=== PATIENT | male | born 1930 | race Caucasian/White ===

== ENCOUNTER 2016-05-08 07:44 | Inpatient (IN) | payer MEDICARE, BC ==
[2016-05-08] MEDS ORDERED: RX INFO: IV CONTRAST WAS GIVEN 1 EACH MISC MISCELLANE PRN (08:10)
--- NOTE | 2016-05-08 08:16 | ED ---
Back Pain HPI - General Chief Complaint: Back Pain/Injury Stated Complaint: Fall Time Seen by Provider: 05/08/16 08:00 Source: patient, EMS, RN notes reviewed Limitations: physical limitation - History of Present Illness Initial Comments: This patient is an 85-year-old man who currently resides at the [facility]. He is brought in by EMS to be evaluated as the result of a fall. Patient states that he had attempted use the bathroom at about 2 AM on the night of going into Tuesday morning. He believes that he tripped and he fell landing on his right thoracic back. The patient states that he did have some initial pain but he was able to rest. When the pain worsened this morning and he has pain with attempted movement she states that the staff there decided to check his back and found significant bruising. They then decided to have him seen here and phone EMS. The patient did receive dose of morphine and states that this has made the pain tolerable. He was rating it moderate to severe before the medication, and states that it is down to mild mouth he does not move. He does have severe pain when he attempts to move. MD Complaint: back pain, back injury, fall Onset/Timin -: hour(s) Similar Symptoms Previously: No Place: home Radiation: flank Severity: moderate Quality: aching Consistency: constant Improves With: none Worsens With: movement, deep breaths/cough Context: fall Associated Symptoms: denies other symptoms Treatments Prior to Arrival: other medications - Related Data Home Medications Medication Instructions Recorded Confirmed Ascorbic Acid [Vitamin C] 500 mg PO DAILY 12/04/15 05/08/16 Aspirin EC [Ecotrin Low Dose] 81 mg PO DAILY@1700 12/04/15 05/08/16 Carbidopa-Levodopa 25-100 mg 1 tab PO TID 12/04/15 05/08/16 [Sinemet 25-100 mg] Finasteride [Proscar] 5 mg PO DAILY 12/04/15 05/08/16 Levothyroxine Sodium [Synthroid] 75 mcg PO MOTUWETHFRSA 12/04/15 05/08/16 Metoprolol Tartrate [Lopressor] 50 mg PO BID 12/04/15 05/08/16 Nitroglycerin Sl Tabs [Nitrostat] 0.4 mg SUBLINGUAL Q5M PRN 12/04/15 05/08/16 Pravastatin Sodium [Pravachol] 40 mg PO HS 12/04/15 05/08/16 Vit D3/Folic Acid/B2/B6/B12 1 tab PO DAILY 12/04/15 05/08/16 [Folgard Tablet] Bisacodyl [Dulcolax] 10 mg PO DAILY PRN 05/08/16 05/08/16 HYDROcodone/APAP 7.5-325MG [[place] 1 tab PO Q4H PRN 05/08/16 05/08/16 7.5-325] Levothyroxine Sodium [Synthroid] 150 mcg PO MENDOSA 05/08/16 05/08/16 Sertraline [Zoloft] 100 mg PO HS 05/08/16 05/08/16 Previous Rx's Medication Instructions Recorded Pantoprazole [Protonix] 40 mg PO AC-BID tablet. 12/10/15 Allergies Allergy/AdvReac Type Severity Reaction Status Date / Time No Known Allergies Allergy Verified 05/08/16 12:16 Review of Systems ROS Statement: Those systems with pertinent positive or pertinent negative responses have been documented in the HPI. ROS Other: All systems not noted in ROS Statement are negative. Constitutional: Denies: fever, chills, weakness Respiratory: Denies: cough, dyspnea, hemoptysis Cardiovascular: Reports: as per HPI, chest pain. Denies: palpitations, edema, syncope Gastrointestinal: Denies: abdominal pain, vomiting, diarrhea Genitourinary: Denies: dysuria, hematuria Musculoskeletal: Reports: as per HPI, back pain Skin: Denies: rash Neurological: Denies: headache, weakness, numbness Hematological/Lymphatic: Denies: easy bleeding Past Medical History Past Medical History: Cancer, Hyperlipidemia, Hypertension, Neurologic Disorder , Thyroid Disorder Additional Past Medical History / Comment(s): Diverticulitis, Prostate CA History of Any Multi-Drug Resistant Organisms: None Reported Past Surgical History: Appendectomy, Tonsillectomy Additional Past Surgical History / Comment(s): radiation seeds 2009, spot of skin cancer removed from head 10/2015 Past Anesthesia/Blood Transfusion Reactions: No Reported Reaction Past Psychological History: Anxiety, Depression Additional Psychological History / Comment(s): but his has severe dementia and is going into hospice today. Was living independently but will be going to extended care. No history of smoking. 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 He was stationed in [place]. He was in the [employer]. No animal exposures Smoking Status: Never smoker Past Alcohol Use History: None Reported Past Drug Use History: None Reported - Past Family History Father Family Medical History: GI Bleed Mother Family Medical History: Cancer Additional Family Medical History / Comment(s): unknown General Exam Limitations: physical limitation General appearance: alert, in no apparent distress Head exam: Present: atraumatic, normocephalic Eye exam: Present: normal appearance. Absent: scleral icterus, conjunctival injection Neck exam: Present: normal inspection, full ROM. Absent: tenderness Respiratory exam: Present: normal lung sounds bilaterally, chest wall tenderness , other (There is ecchymosis over the right posterior ribs and tenderness.). Absent: respiratory distress, wheezes, rales, rhonchi, stridor Cardiovascular Exam: Present: regular rate, normal rhythm, normal heart sounds. Absent: systolic murmur, diastolic murmur, rubs, gallop GI/Abdominal exam: Present: soft, tenderness, guarding. Absent: distended, rebound, mass, pulsatile mass, hernia Extremities exam: Present: normal inspection, normal capillary refill. Absent: pedal edema, calf tenderness Back exam: Present: CVA tenderness (R). Absent: normal inspection, CVA tenderness (L) Neurological exam: Present: alert, oriented X3. Absent: motor sensory deficit Skin exam: Present: warm, dry, intact, normal color, other (Ecchymosis as above) Course Vital Signs 05/08/16 05/08/16 05/08/16 07:47 08:36 09:49 Temperature 96.9 F L Pulse Rate 73 78 Respiratory 15 Rate Blood Pressure 132/79 116/57 155/67 O2 Sat by Pulse 91 L 94 L Oximetry 05/08/16 05/08/16 05/08/16 13:35 14:16 14:58 Temperature Pulse Rate 82 52 L 55 L Respiratory 16 16 Rate Blood Pressure 138/60 138/68 O2 Sat by Pulse 94 L 92 L 92 L Oximetry 05/08/16 15:40 Temperature 97.4 F L Pulse Rate 51 L Respiratory 16 Rate Blood Pressure 116/71 O2 Sat by Pulse 96 Oximetry Medical Decision Making - Medical Decision Making Patient's an 85-year-old man who presents following a fall and has multiple rib fractures. Not finding any other acute injuries. In attempting to manage the patient's pain such that he was able to ambulate, he did require multiple rounds of pain medication and then appeared much to the sedated to safely stand and ambulate. Patient's case discussed with Dr. Migdalia Pimentel who is the surgeon on-call, and will admit the patient overnight. Patient's primary physician is also consulted for medical management. - Lab Data Result diagrams: 05/08/16 08:20 05/08/16 08:20 Lab Results 05/08/16 05/08/16 05/08/16 Range/Units 08:20 08:20 14:00 WBC 6.9 (3.8-10.6) k/uL RBC 3.55 L (4.30-5.90) m/uL Hgb 11.8 L (13.0-17.5) gm/dL Hct 34.6 L (39.0-53.0) % MCV 97.6 (80.0-100.0) fL MCH 33.4 (25.0-35.0) pg MCHC 34.2 (31.0-37.0) g/dL RDW 13.6 (11.5-15.5) % Plt Count 117 L (150-450) k/uL Neutrophils % 76 % Lymphocytes % 11 % Monocytes % 9 % Eosinophils % 2 % Basophils % 0 % Neutrophils # 5.2 (1.3-7.7) k/uL Lymphocytes # 0.7 L (1.0-4.8) k/uL Monocytes # 0.6 (0-1.0) k/uL Eosinophils # 0.2 (0-0.7) k/uL Basophils # 0.0 (0-0.2) k/uL Sodium 140 (137-145) mmol/L Potassium 4.2 (3.5-5.1) mmol/L Chloride 104 (98-107) mmol/L Carbon Dioxide 25 (22-30) mmol/L Anion Gap 11 mmol/L BUN 29 H (9-20) mg/dL Creatinine 1.20 (0.66-1.25) mg/dL Est GFR (MDRD) Af Amer >60 (>60 ml/min/1.73 sqM) Est GFR (MDRD) Non-Af 57 (>60 ml/min/1.73 sqM) Glucose 115 H (74-99) mg/dL Calcium 8.4 (8.4-10.2) mg/dL Total Bilirubin 0.7 (0.2-1.3) mg/dL AST 22 (17-59) U/L ALT 21 (21-72) U/L Alkaline Phosphatase 67 (38-126) U/L Total Protein 6.4 (6.3-8.2) g/dL Albumin 3.6 (3.5-5.0) g/dL Urine Color Yellow Urine Appearance Clear (Clear) Urine pH 5.5 (5.0-8.0) Ur Specific [place] 1.042 H (1.001-1.035) Urine Protein Trace H (Negative) Urine Glucose (UA) Negative (Negative) Urine Ketones Negative (Negative) Urine Blood Negative (Negative) Urine Nitrate Negative (Negative) Urine Bilirubin Negative (Negative) Urine Urobilinogen <2.0 (<2.0) mg/dL Ur Leukocyte Esterase Moderate H (Negative) Urine RBC 2 (0-5) /hpf Urine WBC 6 H (0-5) /hpf Ur Squamous Epith Cells <1 (0-4) /hpf Urine Bacteria Rare H (None) /hpf Hyaline Casts 4 H (0-2) /lpf Urine Mucus Rare H (None) /hpf Disposition Clinical Impression: Multiple fractures of ribs of right side, Intractable pain Disposition: ADMITTED IP TO THIS [facility] Condition: Fair
[2016-05-08 08:33] LABS: Basophils % (A) 0 %; CH 34.1; CHCM 35.2; Eosinophils # (A) 0.2 k/uL (0-0.7); Eosinophils % (A) 2 %; HCT 34.6 % (39.0-53.0); HDW 2.76; HGB 11.8 gm/dL (13.0-17.5); Luc # (Auto) 0.12; Luc % (Auto) 2; Lymphocytes # (A) 0.7 k/uL (1.0-4.8); Lymphocytes % (A) 11 %; MCH 33.4 pg (25.0-35.0); MCHC 34.2 g/dL (31.0-37.0); MCV 97.6 fL (80.0-100.0); Monocytes # (A) 0.6 k/uL (0-1.0); Monocytes % (A) 9 %; Neutrophils # (A) 5.2 k/uL (1.3-7.7); Neutrophils % (A) 76 %; RBC 3.55 m/uL (4.30-5.90); RDW 13.6 % (11.5-15.5); WBC 6.9 k/uL (3.8-10.6); WBC (Perox) 7.03
[2016-05-08 08:46] LABS: ALT 21 U/L (21-72); AST 22 U/L (17-59); Alkaline Phosphatase 67 U/L (38-126); Anion Gap 11 mmol/L; Blood Urea Nitrogen 29 mg/dL (9-20); Calcium 8.4 mg/dL (8.4-10.2); Carbon Dioxide 25 mmol/L (22-30); Chloride 104 mmol/L (98-107); Glucose 115 mg/dL (74-99); Non-African American GFR(MDRD) 57 (>60 ml/min/1.73 sqM); Potassium 4.2 mmol/L (3.5-5.1); Sodium 140 mmol/L (137-145); Total Bilirubin 0.7 mg/dL (0.2-1.3); Total Protein 6.4 g/dL (6.3-8.2)
--- NOTE | 2016-05-08 09:22 | XR ---
EXAMINATION TYPE: XR ribs RT w pa chest xray DATE OF EXAM: 05/08/2016 9:07 AM COMPARISON: 12/09/2015 HISTORY: Pain post fall FINDINGS: Subsegmental changes along lateral margin of the right. Heart is enlarged. No pleural effus ion. No pneumothorax. Diffuse osteopenia. Scoliosis and degenerative changes spine noted. No acute displaced rib fracture. IMPRESSION: 1. No evidence of pneumothorax or acute displaced rib fracture. 2. Vague area of infiltrate or nodularity within the right midlung. Correlate clinically. Short-term follow-up x-ray could be obtained for resolution.
--- NOTE | 2016-05-08 10:44 | CT ---
EXAMINATION TYPE: CT abdomen pelvis w con DATE OF EXAM: 05/08/2016 10:29 AM COMPARISON: 02/14/2016 HISTORY: Fall, Right flank pain. CT DLP: 1019.80 mGycm Automated exposure control for dose reduction was used. CONTRAST: CT scan of the abdomen pelvis is performed with IV Contrast, patient injected with 80 ml mL of Visipa que 320. FINDINGS- LUNG BASES-the heart is enlarged. There is pleural-based thickening and nodularity. Subsegmental cons olidation seen suspected single area of pleural calcification. Correlate for is best is related disea se. LIVER/GB-there is calcification along the wall the gallbladder which could represent a small stone or calcification within the gallbladder wall. Numerous tiny hypodensities within the liver too small to characterize but stable from the previous exam. PANCREAS- No gross abnormality is seen. SPLEEN- No gross abnormality is seen. ADRENALS- No gross abnormality is seen. KIDNEYS/BLADDER- no hydronephrosis or nephrolithiasis. There is a 5 mm lower pole hypodense lesions i nvolving the right kidney too small to characterize.. BOWEL- no bowel dilatation. Normal appendix. Changes of chronic diverticulosis noted. LYMPH NODES- No greater than 1cm abdominal or pelvic lymph nodes are appreciated. OSSEOUS STRUCTURES-severe multilevel degenerative disc disease. Multilevel canal stenosis and foramin al encroachment suspected. Scoliotic curvature and large hypertrophic spurs. No compression deformiti es. There is a slightly displaced fracture involving the anterior lateral margin of the right, ninth, 10th, 11th and 12th rib no pneumothorax. OTHER- atherosclerotic change aorta. Is a chronic cystitis noted with bladder wall thickening. Previ ous surgery involving the prostate noted. IMPRESSION- 1. Slightly displaced fractures anterior lateral margin of the right ninth, 10th, 11th and 12th ribs. 2. There is pleural-based thickening and nodularity with areas of calcification likely the basis of p leural plaques. This would increase the patient's risk for malignancy including primary lung carcinom a and mesothelioma. 3. Bladder wall thickening correlate for chronic cystitis.
[2016-05-08] MEDS ORDERED: HYDROcodone/APAP 7.5-325MG 1 EACH TAB PO ONE (12:23)
[2016-05-08 14:29] LABS: Appearance,Urine Clear (Clear); Bacteria,Urine Rare /hpf; Bilirubin,Urine Negative (Negative); Glucose,Urine (UA) Negative (Negative); Ketones,Urine Negative (Negative); Leukocyte Esterase,Urine Moderate (Negative); Mucus,Urine Rare /hpf; Nitrite,Urine Negative (Negative); PH, Urine 5.5 (5.0-8.0); Particle Count 1167; Protein,Urine Trace (Negative); RBC,Urine 2 /hpf (0-5); Specific Gravity,Urine 1.042 (1.001-1.035); Squamous Epithelial Cell,Urine <1 /hpf (0-4); UA Billing (MACRO vs. MICRO) MICRO; Urobilinogen,Urine <2.0 mg/dL (<2.0); WBC,Urine 6 /hpf (0-5)
[2016-05-08] MEDS ORDERED: HYDROmorphone 1 MG/ML 1 ML SYRINGE IVP STA (14:34)
[2016-05-08] MEDS ORDERED: SODIUM CHLORIDE 0.9% 1,000 ML IV ONE (15:33)
[2016-05-08] MEDS ORDERED: HYDROcodone/APAP 7.5-325MG 1 EACH TAB PO PRN (15:36)
[2016-05-08] MEDS ORDERED: NITROGLYCERIN SL TABS 0.4 MG TAB SUBLINGUAL PRN (15:36)
[2016-05-08] MEDS ORDERED: BISACODYL 5 MG TABLET.DR PO PRN (15:36)
[2016-05-08] MEDS ORDERED: Acetaminophen-Codeine 300-30mg TAB PO PRN (16:30)
--- NOTE | 2016-05-08 16:49 | P.HPIM ---
History of Present Illness H&P Date: 05/08/16 Chief Complaint: Right the chest pain post fall. Lower extremity weakness. The patient is an 85-year-old white male who 2 days ago. When he awoke in the middle of night to go to the bathroom fell and hit the left side of his chest. He was able to get back to bed rest. Early today is still complaining of pain in the right side of the chest which was initially well controlled with analgesics at the adult extended care facility. He was brought to the emergency room to be checked out by family.. Workup in the emergency room didn' t reveal the right anterolateral rib fractures. However no lung issues other than pleural-based thickening. No effusion or pneumonia. Abdomen now was unremarkable on CT. He was given some analgesics. The felt very weak and wasn' t not able to bear weight on his lower extremities himself. He was admitted for observation. No nausea or vomiting. No change in his bowels. No hematuria or urinary symptoms. No hemoptysis. Past history: Positive for hypertension hypothyroidism and prostate CA status post localized radiation treatment appendectomy back pain arthritis. Social history: Nonsmoker no history of ethanol abuse. ALLERGIES none known. System review otherwise unremarkable reviewed. No blood in his stool. No change in his bowel habits. No new urinary symptoms. Cough or hemoptysis or cardiac symptoms. Physical exam: Patient is awake now. In no distress. States he feels comfortable. Temperature is normal. Hydration is good. Vitals are noted Head is normocephalic neck is supple and mobile. Pupils are equal. Heart regular sinus rhythm no murmurs. Lungs are clear to P&A. Chest shows some bruising and ecchymosis on the right flank lateral aspect. Some tenderness in the right anterolateral ribs. No subcu emphysema. Abdomen quite soft scar in the right side. No tenderness. No guarding. No mass or organomegaly. Extremities: Has a bruise on the right anterior knee. No tenderness however. No significant edema. Weakness of both lower extremities. Good pulses of his popliteals and femorals and pedal pulse. [employer]: Somewhat sedated. No focal deficits. Labs and x-rays were reviewed. CT does show trace fractures of the right 1911 ribs on the anterolateral aspect. No pneumothorax. No evidence of infiltrate or effusion or pneumonia. Impression blunt chest trauma with fracture off the ninth 10-11 and 12 ribs slightly displaced. Lower extremity weakness. History of hypertension and hypothyroidism. Chronic back pain and arthritis. Recommendation: Patient will be admitted for observation and monitoring physical therapy medical evaluation incentive spirometry and pain management. Past Medical History Past Medical History: Cancer, Hyperlipidemia, Hypertension, Neurologic Disorder , Thyroid Disorder Additional Past Medical History / Comment(s): Diverticulitis, Prostate CA History of Any Multi-Drug Resistant Organisms: None Reported Past Surgical History: Appendectomy, Tonsillectomy Additional Past Surgical History / Comment(s): radiation seeds 2009, spot of skin cancer removed from head 10/2015 Past Anesthesia/Blood Transfusion Reactions: No Reported Reaction Past Psychological History: Anxiety, Depression Additional Psychological History / Comment(s): but his has severe dementia and is going into hospice today. Was living independently but will be going to extended care. No history of smoking. 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 He was stationed in [employer]. He was in the [employer]. No animal exposures Smoking Status: Never smoker Past Alcohol Use History: None Reported Past Drug Use History: None Reported - Past Family History Father Family Medical History: GI Bleed Mother Family Medical History: Cancer Additional Family Medical History / Comment(s): unknown Medications and Allergies Home Medications Medication Instructions Recorded Confirmed Type Ascorbic Acid [Vitamin C] 500 mg PO DAILY 12/04/15 05/08/16 History Aspirin EC [Ecotrin Low Dose] 81 mg PO DAILY@1700 12/04/15 05/08/16 History Carbidopa-Levodopa 25-100 mg 1 tab PO TID 12/04/15 05/08/16 History [Sinemet 25-100 mg] Finasteride [Proscar] 5 mg PO DAILY 12/04/15 05/08/16 History Levothyroxine Sodium [Synthroid] 75 mcg PO MOTUWETHFRSA 12/04/15 05/08/16 History Metoprolol Tartrate [Lopressor] 50 mg PO BID 12/04/15 05/08/16 History Nitroglycerin Sl Tabs [Nitrostat] 0.4 mg SUBLINGUAL Q5M PRN 12/04/15 05/08/16 History Pravastatin Sodium [Pravachol] 40 mg PO HS 12/04/15 05/08/16 History Vit D3/Folic Acid/B2/B6/B12 1 tab PO DAILY 12/04/15 05/08/16 History [Folgard Tablet] Bisacodyl [Dulcolax] 10 mg PO DAILY PRN 05/08/16 05/08/16 History HYDROcodone/APAP 7.5-325MG [[place] 1 tab PO Q4H PRN 05/08/16 05/08/16 History 7.5-325] Levothyroxine Sodium [Synthroid] 150 mcg PO MENDOSA 05/08/16 05/08/16 History Sertraline [Zoloft] 100 mg PO HS 05/08/16 05/08/16 History Allergies Allergy/AdvReac Type Severity Reaction Status Date / Time No Known Allergies Allergy Verified 05/08/16 12:16 Physical Exam Vitals: Vital Signs Temp Pulse Pulse Resp BP BP Pulse Ox 05/08/16 16:23 97.1 F L 65 20 144/85 93 L 05/08/16 15:40 97.4 F L 51 L 16 116/71 96 Results CBC & Chem 7: 05/08/16 08:20 05/08/16 08:20
[2016-05-08] MEDS ORDERED: HYDROmorphone 1 MG/ML 1 ML SYRINGE IVP PRN (16:52)
[2016-05-08 17:23] VITALS: BMI 25.1
[2016-05-08] MEDS: KETOROLAC 30 MG/ML 1 ML VIAL IVP SCH (17:45)
[2016-05-08] MEDS: PANTOPRAZOLE 40 MG TABLET PO SCH (17:45)
[2016-05-08] MEDS: ASPIRIN 81 MG CHEW PO SCH (17:45)
[2016-05-08] MEDS: CARBIDOPA-LEVODOPA 25-100 MG 1 EACH TAB PO SCH ×2 (17:45→20:45)
[2016-05-08] MEDS: SERTRALINE 100 MG TAB PO SCH (20:45)
[2016-05-08] MEDS: PRAVASTATIN SODIUM 40 MG TAB PO SCH (20:45)
[2016-05-08] MEDS: METOPROLOL TARTRATE 50 MG TAB PO SCH (20:46)
[2016-05-09] MEDS: KETOROLAC 30 MG/ML 1 ML VIAL IVP SCH ×5 (01:01→23:06)
[2016-05-09] MEDS ORDERED: LEVOTHYROXINE 75 MCG TAB PO SCH (06:30)
[2016-05-09] MEDS ORDERED: B6 PO SCH (09:00)
[2016-05-09] MEDS ORDERED: B12 PO SCH (09:00)
[2016-05-09] MEDS ORDERED: FOLIC ACID PO SCH (09:00)
[2016-05-09] MEDS ORDERED: B2 PO SCH (09:00)
[2016-05-09] MEDS ORDERED: VIT D3 PO SCH (09:00)
[2016-05-09] MEDS: METOPROLOL TARTRATE 50 MG TAB PO SCH ×2 (09:13→20:15)
[2016-05-09] MEDS: PANTOPRAZOLE 40 MG TABLET PO SCH ×2 (09:13→17:41)
[2016-05-09] MEDS: FINASTERIDE 5 MG TAB PO SCH (09:14)
[2016-05-09] MEDS: CARBIDOPA-LEVODOPA 25-100 MG 1 EACH TAB PO SCH ×3 (09:14→21:36)
--- NOTE | 2016-05-09 15:11 | P.CONS ---
History of Present Illness - Reason for Consult Consult date: 05/09/16 Medical management Requesting physician: Zeferino Le - Chief Complaint Full, right sided chest pain, generalized weakness of the lower extremity, - History of Present Illness This patient is an 85-year-old man who currently resides at the [facility]. He is brought in by EMS to be evaluated as the result of a fall. Patient states that he had attempted use the bathroom at about 2 AM on the night of going into Tuesday morning. He believes that he tripped and he fell landing on his right thoracic back. The patient states that he did have some initial pain but he was able to rest. When the pain worsened this morning and he has pain with attempted movement she states that the staff there decided to check his back and found significant bruising. They then decided to have him seen here and phone EMS. The patient did receive dose of morphine and states that this has made the pain tolerable. He was rating it moderate to severe before the medication. Testing including CT of the chest was unremarkable. Patient continued to have significant pain clinically does not have any sign of pneumothorax had a quite bit of bruise and ecchymosis on the right flank area on the lateral aspect also had significant tenderness in the right anterolateral rib area with no subcutaneous emphysema, chest x-ray and CAT scan confirmed right sided fractured rib and 9,10, 11 and 12. Patient was admitted to the hospital under trauma Dr. Le initially requested to see patient in medical consultation. Patient seen by her primary care physician on regular basis. Review of Systems Constitutional: Reports chronic pain, Reports fatigue, Reports lethargy, Reports malaise, Reports weakness, Denies as per HPI, Denies anorexia, Denies chills, Denies chronic headaches, Denies daytime sleepiness, Denies fever, Denies night sweats, Denies poor appetite, Denies sweats, Denies weight gain, Denies weight loss Eyes: bilateral as per HPI Ears: bilateral: decreased hearing Ears, nose, mouth and throat: Reports ant. neck pain, Reports nasal congestion, Reports nasal discharge, Reports sinus pain, Reports sinus pressure, Denies as per HPI, Denies bleeding gums, Denies dental pain, Denies dysphagia, Denies epistaxis, Denies headache, Denies hoarseness, Denies mouth pain, Denies neck fullness/pressure, Denies neck lump, Denies nose pain, Denies odynophagia, Denies post-nasal drip, Denies swelling in mouth, Denies swelling in throat, Denies sore throat, Denies vertigo, Denies voice changes Cardiovascular: Reports chest pain, Reports decreased exercise tolerance, Reports dyspnea on exertion, Reports high blood pressure, Reports leg edema, Reports lightheadedness, Reports orthopnea, Reports rapid heart beat, Reports shortness of breath, Denies as per HPI, Denies claudication, Denies edema, Denies irregular heart beat, Denies palpitations, Denies paroxysmal nocturnal dyspnea, Denies phlebitis, Denies syncope Respiratory: Reports congestion, Reports cough, Reports dyspnea, Reports pain, Reports pain on inspiration, Denies as per HPI, Denies cough with sputum, Denies excessive sputum, Denies hemoptysis, Denies home oxygen, Denies pleurisy , Denies sleep apnea, Denies snoring, Denies wheezing Gastrointestinal: Reports abdominal pain, Reports bloating, Reports dyspepsia, Reports indigestion, Reports nausea, Denies as per HPI, Denies belching, Denies BRBPR, Denies change in bowel habits, Denies coffee ground emesis, Denies constipation, Denies diarrhea, Denies early satiety, Denies excessive gas, Denies heartburn, Denies hematemesis, Denies hematochezia, Denies jaundice, Denies lactose intolerance, Denies loss of appetite, Denies melena, Denies vomiting Genitourinary: Reports dysuria, Reports urinary frequency, Reports urinary hesitancy, Denies as per HPI, Denies decreased libido, Denies difficulties fathering child, Denies discharge, Denies erectile dysfunction, Denies flank pain, Denies genital pain, Denies genital sores, Denies hematuria, Denies impotence, Denies incontinence, Denies kidney stones, Denies nocturia, Denies polyuria, Denies testicular lump, Denies testicular pain, Denies urinary retention Musculoskeletal: Reports fractures, Reports frequent falls, Reports gait dysfunction, Reports limitation of motion, Reports low back pain, Reports morning stiffness, Reports neck pain, Reports neck stiffness, Denies as per HPI , Denies arm numbness/tingling, Denies atrophy, Denies hot joints, Denies leg numbness/tingling, Denies loss of height, Denies muscle cramps, Denies muscle weakness, Denies myalgias, Denies prior amputations, Denies redness of joints, Denies shooting arm pain, Denies shooting leg pain Musculoskeletal: bilateral: ankle pain Integumentary: Reports dryness, Reports foot/leg ulcers, Reports pruritus, Reports rash, Reports sores, Denies as per HPI, Denies acne, Denies boils, Denies brittle nails, Denies change in hair/nails, Denies color changes, Denies darkening of skin, Denies depigmentation, Denies growths, Denies hirsutism, Denies lesions, Denies onychomycosis, Denies striae, Denies unusual bruising, Denies wounds Neurological: Reports ataxia, Reports burning pain, Reports paresthesias, Reports tingling, Denies as per HPI, Denies aphasia, Denies balance difficulties , Denies change in mentation, Denies change in smell/taste, Denies change in speech, Denies confusion, Denies convulsions, Denies double vision, Denies gait dysfunction, Denies head injury, Denies headaches, Denies hearing difficulties, Denies lack of coordination, Denies loss of vision, Denies memory loss, Denies migraines, Denies motor disturbance, Denies numbness, Denies paralysis, Denies seizures, Denies sensory deficit, Denies spasticity, Denies syncope, Denies tic , Denies transient paralysis, Denies tremors, Denies vertigo, Denies weakness, Denies visual changes Psychiatric: Reports anhedonia, Reports anxiety, Denies as per HPI, Denies anxiety attacks, Denies change in appetite, Denies change in libido, Denies change in sleep habits, Denies confusion, Denies depression, Denies difficulty concentrating, Denies disorientation, Denies hallucinations, Denies hopelessness , Denies hypersomnia, Denies insomnia, Denies irritability, Denies memory loss, Denies mood swings, Denies paranoia, Denies sadness/tearfulness, Denies sleep disturbances, Denies suicidal ideation Endocrine: Reports cold intolerance, Reports excessive thirst, Denies as per HPI , Denies deepening of the voice, Denies excessive sweating, Denies fatigue, Denies flushing, Denies heat intolerance, Denies high blood sugars, Denies increase in ring/shoe/hat size, Denies low blood sugars, Denies nocturia, Denies palpitations, Denies polydipsia, Denies polyphagia, Denies polyuria, Denies proptosis, Denies recent glucocorticoid use, Denies thyroid mass, Denies weight change Hematologic/Lymphatic: Reports easy bruising, Denies as per HPI, Denies easy bleeding, Denies lymphadenopathy, Denies lymphedema, Denies thrombophilia Allergic/Immunologic: Reports allergic rhinitis, Denies as per HPI, Denies anaphylaxis, Denies angioedema, Denies gluten intolerance, Denies persistent infections, Denies seasonal allergies, Denies urticaria, Denies wheezing Past Medical History Past Medical History: Cancer, Hyperlipidemia, Hypertension, Neurologic Disorder , Thyroid Disorder Additional Past Medical History / Comment(s): Diverticulitis, Prostate CA History of Any Multi-Drug Resistant Organisms: None Reported Past Surgical History: Appendectomy, Tonsillectomy Additional Past Surgical History / Comment(s): radiation seeds 2009, spot of skin cancer removed from head 10/2015 Past Anesthesia/Blood Transfusion Reactions: No Reported Reaction Past Psychological History: Anxiety, Depression Additional Psychological History / Comment(s): but his has severe dementia and is going into hospice today. Was living independently but will be going to extended care. No history of smoking. 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 He was stationed in [place]. He was in the [employer]. No animal exposures Smoking Status: Never smoker Past Alcohol Use History: None Reported Past Drug Use History: None Reported - Past Family History Father Family Medical History: GI Bleed Mother Family Medical History: Cancer Additional Family Medical History / Comment(s): unknown Medications and Allergies Home Medications Medication Instructions Recorded Confirmed Type Ascorbic Acid [Vitamin C] 500 mg PO DAILY 12/04/15 05/08/16 History Aspirin EC [Ecotrin Low Dose] 81 mg PO DAILY@1700 12/04/15 05/08/16 History Carbidopa-Levodopa 25-100 mg 1 tab PO TID 12/04/15 05/08/16 History [Sinemet 25-100 mg] Finasteride [Proscar] 5 mg PO DAILY 12/04/15 05/08/16 History Levothyroxine Sodium [Synthroid] 75 mcg PO MOTUWETHFRSA 12/04/15 05/08/16 History Metoprolol Tartrate [Lopressor] 50 mg PO BID 12/04/15 05/08/16 History Nitroglycerin Sl Tabs [Nitrostat] 0.4 mg SUBLINGUAL Q5M PRN 12/04/15 05/08/16 History Pravastatin Sodium [Pravachol] 40 mg PO HS 12/04/15 05/08/16 History Vit D3/Folic Acid/B2/B6/B12 1 tab PO DAILY 12/04/15 05/08/16 History [Folgard Tablet] Bisacodyl [Dulcolax] 10 mg PO DAILY PRN 05/08/16 05/08/16 History HYDROcodone/APAP 7.5-325MG [[place] 1 tab PO Q4H PRN 05/08/16 05/08/16 History 7.5-325] Levothyroxine Sodium [Synthroid] 150 mcg PO MENDOSA 05/08/16 05/08/16 History Sertraline [Zoloft] 100 mg PO HS 05/08/16 05/08/16 History Allergies Allergy/AdvReac Type Severity Reaction Status Date / Time No Known Allergies Allergy Verified 05/08/16 12:16 Physical Exam Vitals: Vital Signs Temp Pulse Pulse Resp BP BP Pulse Ox 05/09/16 07:00 96.9 F L 57 L 20 126/75 98 05/08/16 23:00 97.2 F L 63 18 140/70 96 05/08/16 16:23 97.1 F L 65 20 144/85 93 L 05/08/16 15:40 97.4 F L 51 L 16 116/71 96 Intake and Output 05/08/16 05/09/16 05/09/16 22:59 06:59 14:59 Other: Voiding Method Bedside Commode Bedside Commode Urinal Urinal # Voids 1 2 Weight 84 kg - Constitutional General appearance: no average body habitus, cooperative, no disheveled, no mild distress, no morbidly obese, no acute distress, no obese, no severe distress, no thin - EENT Eyes: no abnormal pupil, no anicteric sclerae, no disc margins sharp, no edentulous, no EOMI, no PERRLA, no fundus normal, no photophobia, no dentition normal, no poor dentition, no ptosis, no scleral icterus, normal appearance ENT: no hard of hearing, no hearing grossly normal, no NA/AT, normal oropharynx , no other, no pharyngeal erythema, no thrush, no tonsillar exudates, no tonsillar swelling Ears: bilateral: normal - Neck Neck: no lymphadenopathy, normal ROM, no other, no rigidity, no stridor, no thyromegaly Carotids: bilateral: upstroke normal, upstroke delayed Thyroid: bilateral: normal size - Respiratory Respiratory: right: diminished, dullness, rales, bilateral: rhonchi, wheezing - Cardiovascular Rhythm: regular Heart sounds: normal: S1, S2 Abnormal Heart Sounds: systolic murmur, S3 Gallop - Gastrointestinal General gastrointestinal: no absent bowel sounds, no decreased bowel sounds, distended, no hepatomegaly, no hyperactive bowel sounds, no normal bowel sounds , organomegaly, no rigid, no scaphoid, soft, no splenomegaly, tenderness, no umbilical hernia, no ventral hernia - Integumentary Integumentary: no calor, no cellulitis, no cyanotic, no decreased turgor, no flushed, no jaundiced, normal, normal turgor, pale, rash, no ulcer - Neurologic Neurologic: CNII-XII intact - Musculoskeletal Musculoskeletal: no gait normal, generalized weakness, strength equal bilaterally, no right sided weakness, no left sided weakness - Psychiatric Psychiatric: A&O x's 3, no appropriate affect, no intact judgment & insight Results CBC & Chem 7: 05/08/16 08:20 05/08/16 08:20 Assessment and Plan Plan: 1 post fall with few injury including multiple rib fractures on the right side along with Abdullahi in the flank area patient was hospitalized on the trauma continue pain management continue current treatment watch patient hemodynamic status watch for any decline in pulse ox.impossibility of right sided pneumonia would be high especially with his current injury. 2 chest pain: Continue to treated as a skeletal muscular with his fracture continue pain management incentive spirometry and updraft treatment were added to his regime. 3 Parkinson disease: Has been on Sinemet continue medication. 4 hypothyroidism: Patient has been on Synthroid 75 g daily. 5 BPH: Patient is on Proscar with good results so far. 6 hypertension: On metoprolol 50 mg twice a day continue medication. 7 hyperlipidemia: Patient is doing well on pravastatin 40 mg daily. 8 depression: Resume Zoloft at tender milligrams daily. 9 debility and abnormal balance and gait: Patient be started PTOT and might require rehabilitation. 10 DVT prophylaxis: Patient will be on heparin 5000 units subcutaneous in use twice a day. 11 GI prophylaxis: Patient will be on Pepcid 20 mg daily. CODE STATUS: Full code. Dr. Le thank you much for the consult psych and be any further help to please let me know.
--- NOTE | 2016-05-09 16:19 | P.PN ---
Progress Note - Text The patient is stable. He's awake and more alert now. Has some discomfort in the right posterior chest wall from his fractures. Denies any shortness of breath. Appetite is good. No abdominal pain. Her graft on examination the patient is afebrile. Vitals are good usual tenderness in the right flank area with ecchymosis and bruising. Abd.is soft and benign. Impression fall with multiple right rib fractures stable. Lower extremity weakness and difficulty in ambulating because of the weakness in his knees and discomfort probably from degenerative joint disease Recommendation continued the analgesia for the rib fractures."Physical Therapy. Transfer care to Dr. Lopez since nothing surgical to offer.
[2016-05-09] MEDS: ASPIRIN 81 MG CHEW PO SCH (17:42)
[2016-05-09] MEDS: PRAVASTATIN SODIUM 40 MG TAB PO SCH (20:14)
[2016-05-09] MEDS: SERTRALINE 100 MG TAB PO SCH (20:14)
[2016-05-09] MEDS: HEPARIN SODIUM,PORCINE 5,000 UNIT/ML 1 ML VIAL SQ SCH (20:15)
[2016-05-10] MEDS: KETOROLAC 30 MG/ML 1 ML VIAL IVP SCH ×4 (05:20→23:03)
[2016-05-10] MEDS: LEVOTHYROXINE 75 MCG TAB PO SCH (05:46)
[2016-05-10] MEDS: HEPARIN SODIUM,PORCINE 5,000 UNIT/ML 1 ML VIAL SQ SCH ×2 (09:12→20:18)
[2016-05-10] MEDS: FINASTERIDE 5 MG TAB PO SCH (09:12)
[2016-05-10] MEDS: PANTOPRAZOLE 40 MG TABLET PO SCH ×2 (09:13→16:40)
[2016-05-10] MEDS: METOPROLOL TARTRATE 50 MG TAB PO SCH ×2 (09:13→20:19)
[2016-05-10] MEDS: CARBIDOPA-LEVODOPA 25-100 MG 1 EACH TAB PO SCH ×3 (09:13→20:19)
--- NOTE | 2016-05-10 13:04 | P.PN ---
Progress Note - Text Patient is quite stable. Usual amount of discomfort from his right rib fractures. Bruising is much improved. Eating well. No nausea or vomiting. PT is working with him regarding his ambulation. On examination he is awake alert and stable. Vitals are good. Lungs are clear. Abdomen is soft and benign. Impression stable status post right rib fractures from a fall. Medical issues as described above. The family's concern about to him having multiple falls at [facility]. We'll defer to regarding workup for this and further management. Nothing surgical to offer from my standpoint and therefore ask the vision to be transferred to Dr. Lopez's service.
--- NOTE | 2016-05-10 16:10 | P.PN ---
Subjective This patient is an 85-year-old man who currently resides at the [facility]. He is brought in by EMS to be evaluated as the result of a fall. Patient states that he had attempted use the bathroom at about 2 AM on the night of going into Tuesday morning. He believes that he tripped and he fell landing on his right thoracic back. The patient states that he did have some initial pain but he was able to rest. When the pain worsened this morning and he has pain with attempted movement she states that the staff there decided to check his back and found significant bruising. They then decided to have him seen here and phone EMS. The patient did receive dose of morphine and states that this has made the pain tolerable. He was rating it moderate to severe before the medication. Testing including CT of the chest was unremarkable. Patient continued to have significant pain clinically does not have any sign of pneumothorax had a quite bit of bruise and ecchymosis on the right flank area on the lateral aspect also had significant tenderness in the right anterolateral rib area with no subcutaneous emphysema, chest x-ray and CAT scan confirmed right sided fractured rib and 9,10, 11 and 12. Patient was admitted to the hospital under trauma Dr. Le initially requested to see patient in medical consultation. Patient seen by her primary care physician on regular basis. 05/10: Pain is controlled. Patient is to work with incentive spirometry. Family is planning for subacute rehab at [facility]. Most likely, patient will be ready for discharge tomorrow. Objective - Vital Signs Vital signs: Vital Signs Temp 97.8 F 05/10/16 07:00 Pulse 54 L 05/10/16 09:30 Resp 20 05/10/16 09:30 BP 146/75 05/10/16 07:00 Pulse Ox 98 05/10/16 07:00 Intake & Output 05/09/16 05/10/16 05/10/16 18:59 06:59 18:59 Intake Total 960 220 200 Output Total 150 Balance 810 220 200 Intake: IV 220 0.9 NS @ 20 ml/hr 220 Oral 960 200 Output: Urine 150 Other: Voiding Method Toilet Urinal Urinal Bedside Commode Urinal # Voids 3 1 # Bowel Movements 1 - Exam General appearance: no average body habitus, cooperative, no disheveled, no mild distress, no morbidly obese, no acute distress, no obese, no severe distress, no thin - EENT Eyes: no abnormal pupil, no anicteric sclerae, no disc margins sharp, no edentulous, no EOMI, no PERRLA, no fundus normal, no photophobia, no dentition normal, no poor dentition, no ptosis, no scleral icterus, normal appearance ENT: no hard of hearing, no hearing grossly normal, no NA/AT, normal oropharynx , no other, no pharyngeal erythema, no thrush, no tonsillar exudates, no tonsillar swelling Ears: bilateral: normal - Neck Neck: no lymphadenopathy, normal ROM, no other, no rigidity, no stridor, no thyromegaly Carotids: bilateral: upstroke normal, upstroke delayed Thyroid: bilateral: normal size - Respiratory Respiratory: right: diminished, dullness, rales, bilateral: rhonchi, wheezing - Cardiovascular Rhythm: regular Heart sounds: normal: S1, S2 Abnormal Heart Sounds: systolic murmur, S3 Gallop - Gastrointestinal General gastrointestinal: no absent bowel sounds, no decreased bowel sounds, distended, no hepatomegaly, no hyperactive bowel sounds, no normal bowel sounds , organomegaly, no rigid, no scaphoid, soft, no splenomegaly, tenderness, no umbilical hernia, no ventral hernia - Integumentary Integumentary: no calor, no cellulitis, no cyanotic, no decreased turgor, no flushed, no jaundiced, normal, normal turgor, pale, rash, no ulcer - Neurologic Neurologic: CNII-XII intact - Musculoskeletal Musculoskeletal: no gait normal, generalized weakness, strength equal bilaterally, no right sided weakness, no left sided weakness - Psychiatric Psychiatric: A&O x's 3, no appropriate affect, no intact judgment & insight - Labs CBC & Chem 7: 05/08/16 08:20 05/08/16 08:20 Assessment and Plan Plan: 1 post fall with few injury including multiple rib fractures on the right side along with bruising in the flank area patient was hospitalized on the trauma continue pain management continue current treatment watch patient hemodynamic status watch for any decline in pulse ox.impossibility of right sided pneumonia would be high especially with his current injury. 2 chest pain: Continue to treated as a skeletal muscular with his fracture continue pain management incentive spirometry and updraft treatment were added to his regime. 3 Parkinson disease: Has been on Sinemet continue medication. 4 hypothyroidism: Patient has been on Synthroid 75 g daily. 5 BPH: Patient is on Proscar with good results so far. 6 hypertension: On metoprolol 50 mg twice a day continue medication. 7 hyperlipidemia: Patient is doing well on pravastatin 40 mg daily. 8 depression: Resume Zoloft at tender milligrams daily. 9 debility and abnormal balance and gait: Patient be started PTOT and might require rehabilitation. 10 DVT prophylaxis: Patient will be on heparin 5000 units subcutaneous in use twice a day. 11 GI prophylaxis: Patient will be on Pepcid 20 mg daily. CODE STATUS: Full code. Discharge plan: [facility] tomorrow. Impression and plan of care have been directed as dictated by the signing physician. Rowena Lott nurse practitioner acting as scribe for signing physician. Time with Patient: Greater than 30
[2016-05-10] MEDS: ASPIRIN 81 MG CHEW PO SCH (16:40)
[2016-05-10] MEDS: PRAVASTATIN SODIUM 40 MG TAB PO SCH (20:19)
[2016-05-10] MEDS: SERTRALINE 100 MG TAB PO SCH (20:19)
[2016-05-11] MEDS: KETOROLAC 30 MG/ML 1 ML VIAL IVP SCH ×2 (05:48→12:03)
[2016-05-11] MEDS: LEVOTHYROXINE 75 MCG TAB PO SCH (05:49)
[2016-05-11 07:52] VITALS: BP 136/76; PULSE 54; RESP 20; TEMP 97.2
[2016-05-11] MEDS: HEPARIN SODIUM,PORCINE 5,000 UNIT/ML 1 ML VIAL SQ SCH (08:45)
[2016-05-11] MEDS: CARBIDOPA-LEVODOPA 25-100 MG 1 EACH TAB PO SCH (08:45)
[2016-05-11] MEDS: FINASTERIDE 5 MG TAB PO SCH (08:45)
[2016-05-11] MEDS: METOPROLOL TARTRATE 50 MG TAB PO SCH (08:46)
[2016-05-11] MEDS: PANTOPRAZOLE 40 MG TABLET PO SCH (08:46)
[2016-05-11 10:17] LABS: CH 33.5; CHCM 34.1; HCT 34.6 % (39.0-53.0); HGB 11.6 gm/dL (13.0-17.5); MCH 32.9 pg (25.0-35.0); MCHC 33.4 g/dL (31.0-37.0); MCV 98.7 fL (80.0-100.0); Mean Platelet Volume 6.9; RBC 3.51 m/uL (4.30-5.90); RDW 13.2 % (11.5-15.5); WBC 5.7 k/uL (3.8-10.6)
[2016-05-11 10:23] LABS: Anion Gap 11 mmol/L; Blood Urea Nitrogen 32 mg/dL (9-20); Calcium 8.6 mg/dL (8.4-10.2); Carbon Dioxide 24 mmol/L (22-30); Chloride 105 mmol/L (98-107); Glucose 111 mg/dL (74-99); Non-African American GFR(MDRD) 55 (>60 ml/min/1.73 sqM); Potassium 4.1 mmol/L (3.5-5.1); Sodium 140 mmol/L (137-145)
--- NOTE | 2016-05-11 11:43 | P.DS ---
Providers Date of admission: 05/08/16 15:33 Expected date of discharge: 05/11/16 Attending physician: Arsalan Lopez Primary care physician: Arsalan Lopez [facility] Course: This patient is an 85-year-old man who currently resides at the [facility]. He is brought in by EMS to be evaluated as the result of a fall. Patient states that he had attempted use the bathroom at about 2 AM on the night of going into Tuesday morning. He believes that he tripped and he fell landing on his right thoracic back. The patient states that he did have some initial pain but he was able to rest. When the pain worsened this morning and he has pain with attempted movement she states that the staff there decided to check his back and found significant bruising. They then decided to have him seen here and phone EMS. The patient did receive dose of morphine and states that this has made the pain tolerable. He was rating it moderate to severe before the medication. Testing including CT of the chest was unremarkable. Patient continued to have significant pain clinically does not have any sign of pneumothorax had a quite bit of bruise and ecchymosis on the right flank area on the lateral aspect also had significant tenderness in the right anterolateral rib area with no subcutaneous emphysema, chest x-ray and CAT scan confirmed right sided fractured rib and 9,10, 11 and 12. Patient was admitted to the hospital under trauma Dr. Le initially requested to see patient in medical consultation. Patient seen by her primary care physician on regular basis. 05/10: Pain is controlled. Patient is to work with incentive spirometry. Family is planning for subacute rehab at [facility]. Most likely, patient will be ready for discharge tomorrow. 05/11:Pain is controlled with current medications. Patient will be discharged to [facility] today in stable condition. Patient will be followed there by Dr. Lopez. Discharge Diagnoses: 1 post fall with multiple rib fractures on the right side along with bruising in the flank area 2 chest pain: Continue to treated as a skeletal muscular with his fracture 3 Parkinson disease 4 hypothyroidism 5 BPH 6 hypertension: 7 hyperlipidemia 8 depression recurrent 9 debility and abnormal balance and gait Discharge plan: [facility] Impression and plan of care have been directed as dictated by the signing physician. Rowena Lott nurse practitioner acting as scribe for signing physician. Patient Condition at Discharge: Good Plan - Discharge Summary New Discharge Prescriptions: Acetaminophen-Codeine 300-30mg [Tylenol w/codeine #3] 1 each PO Q4HR PRN #120 tab PRN Reason: Pain Discharge Medication List Ascorbic Acid [Vitamin C] 500 mg PO DAILY 12/04/15 [History] Aspirin EC [Ecotrin Low Dose] 81 mg PO DAILY@1700 12/04/15 [History] Carbidopa-Levodopa 25-100 mg [Sinemet 25-100 mg] 1 tab PO TID 12/04/15 [History] Finasteride [Proscar] 5 mg PO DAILY 12/04/15 [History] Levothyroxine Sodium [Synthroid] 75 mcg PO MOTUWETHFRSA 12/04/15 [History] Metoprolol Tartrate [Lopressor] 50 mg PO BID 12/04/15 [History] Nitroglycerin Sl Tabs [Nitrostat] 0.4 mg SUBLINGUAL Q5M PRN 12/04/15 [History] Pravastatin Sodium [Pravachol] 40 mg PO HS 12/04/15 [History] Vit D3/Folic Acid/B2/B6/B12 [Folgard Tablet] 1 tab PO DAILY 12/04/15 [History] Pantoprazole [Protonix] 40 mg PO AC-BID tablet. 12/10/15 [Rx] Bisacodyl [Dulcolax] 10 mg PO DAILY PRN 05/08/16 [History] Levothyroxine Sodium [Synthroid] 150 mcg PO MENDOSA 05/08/16 [History] Sertraline [Zoloft] 100 mg PO HS 05/08/16 [History] Acetaminophen-Codeine 300-30mg [Tylenol w/codeine #3] 1 each PO Q4HR PRN #120 tab 05/11/16 [Rx] Follow up Appointment(s)/Referral(s): Arsalan Lopez MD [Primary Care Provider] - 1 Week
== END 2016-05-11 13:47 | DRG 184 ==
LOC: EC 07:44 → 4MS4W 15:33
PROVIDERS: ADMIT Internal Medicine; ATTEND Internal Medicine
DX: S22.41XA Multiple fractures of ribs, right side, initial encounter for closed fracture (principal); F33.9 Major depressive disorder, recurrent, unspecified; G20 Parkinson's disease; E03.9 Hypothyroidism, unspecified; E78.5 Hyperlipidemia, unspecified; R53.1 Weakness; R26.2 Difficulty in walking, not elsewhere classified; F41.9 Anxiety disorder, unspecified; S30.0XXA Contusion of lower back and pelvis, initial encounter; S80.01XA Contusion of right knee, initial encounter; I10 Essential (primary) hypertension; G89.29 Other chronic pain; M54.9 Dorsalgia, unspecified; N40.0 Benign prostatic hyperplasia without lower urinary tract symptoms; Z85.46 Personal history of malignant neoplasm of prostate; Z79.82 Long term (current) use of aspirin; Z79.891 Long term (current) use of opiate analgesic; Z79.899 Other long term (current) drug therapy; Z90.49 Acquired absence of other specified parts of digestive tract; Z92.3 Personal history of irradiation; Z85.828 Personal history of other malignant neoplasm of skin; Z87.19 Personal history of other diseases of the digestive system; M17.0 Bilateral primary osteoarthritis of knee; Z63.6 Dependent relative needing care at home; Z80.9 Family history of malignant neoplasm, unspecified; W01.10XA Fall on same level from slipping, tripping and stumbling with subsequent striking against unspecified object, initial encounter; Y93.01 Activity, walking, marching and hiking; Y92.002 Bathroom of unspecified non-institutional (private) residence as the place of occurrence of the external cause
CPT/HCPCS: 36415; 74177; 80048; 80053; 81001; 85025; 85027; 96374; 99285

== ENCOUNTER 2017-08-17 19:06 | Inpatient (IN) | payer MEDICARE, BC ==
[2017-08-17] MEDS ORDERED: MORPHINE SULFATE 4 MG/ML SYRINGE IVP STA (19:35)
[2017-08-17] MEDS ORDERED: RX INFO: IV CONTRAST WAS GIVEN 1 EACH MISC MISCELLANE PRN (19:35)
[2017-08-17] MEDS ORDERED: SODIUM CHLORIDE 0.9% 500 ML IV STA (19:35)
--- NOTE | 2017-08-17 19:38 | ED ---
General Adult HPI - General Chief complaint: Abdominal Pain Stated complaint: Abd pain Time Seen by Provider: 08/17/17 19:23 Source: patient, EMS, RN notes reviewed Mode of arrival: EMS Limitations: no limitations - History of Present Illness Initial comments: 87-year-old male presents for evaluation of lower abdominal pain. According to the patient pain is been present for the past 2 days. He has been having normal bowel movements. No blood noted diarrhea. No upper abdominal pain. No nausea vomiting. No chest or shortness of breath. No fever or chills. Patient has had decreased appetite over this time. According to his daughter who is at bedside patient did have an episode of confusion earlier this afternoon. Patient was found to senior care sleeping at the dinner table. There is no mention of facial droop, no focal weakness. Patient is alert and oriented at the time my evaluation. - Related Data Home Medications Medication Instructions Recorded Confirmed Ascorbic Acid [Vitamin C] 500 mg PO DAILY 12/04/15 08/17/17 Carbidopa-Levodopa 25-100 mg 1 tab PO TID@08,,12/04/15 08/17/17 [Sinemet 25-100 mg] Finasteride [Proscar] 5 mg PO HS 12/04/15 08/17/17 Levothyroxine Sodium [Synthroid] 75 mcg PO MOTUWETHFRSA@12/04/15 08/17/17 Metoprolol Tartrate [Lopressor] 50 mg PO BID 12/04/15 08/17/17 Pravastatin Sodium [Pravachol] 40 mg PO HS 12/04/15 08/17/17 Vit D3/Folic Acid/B2/B6/B12 1 tab PO DAILY@1700 12/04/15 08/17/17 [Folgard Tablet] Levothyroxine Sodium [Synthroid] 150 mcg PO MENDOSA@07 05/08/16 08/17/17 Sertraline [Zoloft] 100 mg PO HS 05/08/16 08/17/17 Acetaminophen-Codeine 300-30mg 1 tab PO Q4H PRN 08/17/17 08/17/17 [Tylenol w/codeine #3] Aspirin EC [Ecotrin Low Dose] 81 mg PO DAILY 08/17/17 08/17/17 Bisacodyl 10 mg PO DAILY PRN 08/17/17 08/17/17 Eye Scrub 1 applic OPHTHALMIC DAILY 08/17/17 08/17/17 Melatonin 5 mg PO HS 08/17/17 08/17/17 Mirabegron [Myrbetriq] 25 mg PO DAILY 08/17/17 08/17/17 Nitroglycerin Sl Tabs [Nitrostat] 0.4 mg SUBLINGUAL Q5M PRN 08/17/17 08/17/17 Pantoprazole [Protonix] 40 mg PO BID@07,16 08/17/17 08/17/17 Zinc Oxide [Desitin] 1 applic TOPICAL BID 08/17/17 08/17/17 Allergies Allergy/AdvReac Type Severity Reaction Status Date / Time No Known Allergies Allergy Verified 08/17/17 19:52 Review of Systems ROS Statement: Those systems with pertinent positive or pertinent negative responses have been documented in the HPI. ROS Other: All systems not noted in ROS Statement are negative. Past Medical History Past Medical History: Cancer, Hyperlipidemia, Hypertension, Neurologic Disorder , Thyroid Disorder Additional Past Medical History / Comment(s): Diverticulitis, Prostate CA History of Any Multi-Drug Resistant Organisms: None Reported Past Surgical History: Appendectomy, Tonsillectomy Additional Past Surgical History / Comment(s): radiation seeds 2009, spot of skin cancer removed from head 10/2015 Past Anesthesia/Blood Transfusion Reactions: No Reported Reaction Past Psychological History: Anxiety, Depression Smoking Status: Never smoker Past Alcohol Use History: None Reported Past Drug Use History: None Reported - Past Family History Father Family Medical History: GI Bleed Mother Family Medical History: Cancer Additional Family Medical History / Comment(s): unknown General Exam Limitations: no limitations General appearance: alert, in no apparent distress Head exam: Present: atraumatic, normocephalic Eye exam: Present: normal appearance, PERRL, EOMI ENT exam: Present: normal exam Neck exam: Present: normal inspection. Absent: tenderness, meningismus Respiratory exam: Present: normal lung sounds bilaterally. Absent: respiratory distress, wheezes Cardiovascular Exam: Present: regular rate, normal rhythm GI/Abdominal exam: Present: soft, tenderness (Left lower quadrant tenderness to palpation.). Absent: distended, guarding, rebound Extremities exam: Present: normal inspection, normal capillary refill Neurological exam: Present: alert, oriented X3, CN II-XII intact. Absent: motor sensory deficit Psychiatric exam: Present: normal affect, normal mood Skin exam: Present: warm, dry, intact. Absent: cyanosis, diaphoretic Course Vital Signs 08/17/17 08/17/17 19:17 20:48 Temperature 100 F H Pulse Rate 67 68 Respiratory 20 18 Rate Blood Pressure 159/72 140/61 O2 Sat by Pulse 95 96 Oximetry EKG Findings - EKG Comments: EKG Findings:: EKG, sinus rhythm with PVC, rate of 65, WA interval 190 QRS duration 108 QTC 455, left axis deviation, LVH, no ST segment changes Medical Decision Making - Medical Decision Making 87-year-old male with left lower quadrant abdominal pain. Patient has low- grade temperature and is tender in left lower quadrant. No rebound or guarding. Laboratory studies are obtained, patient has leukocytosis at 14.6, hemoglobin 12.3 which is stable. Normal lactic acid. Urinalysis is pending. CT with contrast that showed diverticulitis. Patient is given Levaquin and metronidazole. Patient will be admitted for further IV antibiotics and reevaluation. Dr. Briggs will accept admission. - Lab Data Result diagrams: 08/17/17 15:25 08/17/17 15:25 Lab Results 08/17/17 08/17/17 08/17/17 Range/Units 15:25 15:25 15:25 WBC 14.6 H (3.8-10.6) k/uL RBC 3.73 L (4.30-5.90) m/uL Hgb 12.3 L (13.0-17.5) gm/dL Hct 34.6 L (39.0-53.0) % MCV 92.8 (80.0-100.0) fL MCH 33.1 (25.0-35.0) pg MCHC 35.6 (31.0-37.0) g/dL RDW 13.4 (11.5-15.5) % Plt Count 140 L (150-450) k/uL Neutrophils % 84 % Lymphocytes % 8 % Monocytes % 7 % Eosinophils % 1 % Basophils % 0 % Neutrophils # 12.2 H (1.3-7.7) k/uL Lymphocytes # 1.1 (1.0-4.8) k/uL Monocytes # 1.0 (0-1.0) k/uL Eosinophils # 0.1 (0-0.7) k/uL Basophils # 0.0 (0-0.2) k/uL Sodium 136 L (137-145) mmol/L Potassium 4.3 (3.5-5.1) mmol/L Chloride 101 (98-107) mmol/L Carbon Dioxide 21 L (22-30) mmol/L Anion Gap 14 mmol/L BUN 34 H (9-20) mg/dL Creatinine 1.10 (0.66-1.25) mg/dL Est GFR (CKD-EPI)AfAm 69 (>60 ml/min/1.73 sqM) Est GFR (CKD-EPI)NonAf 60 (>60 ml/min/1.73 sqM) Glucose 132 H (74-99) mg/dL Plasma Lactic Acid Rene 0.7 (0.7-2.0) mmol/L Calcium 9.2 (8.4-10.2) mg/dL Total Bilirubin 0.6 (0.2-1.3) mg/dL AST 22 (17-59) U/L ALT 7 L (21-72) U/L Alkaline Phosphatase 62 (38-126) U/L Total Protein 6.5 (6.3-8.2) g/dL Albumin 4.0 (3.5-5.0) g/dL Amylase 47 (30-110) U/L Lipase 69 (23-300) U/L Disposition Clinical Impression: Diverticulitis, Sepsis Disposition: ADMITTED IP TO THIS [facility] Condition: Stable Is patient prescribed a controlled substance at d/c from ED?: No Referrals: Arsalan Lopez MD [Primary Care Provider] - 1-2 days Decision to Admit Reason: Admit from EC Decision Date: 08/17/17 Decision Time: 20:59
[2017-08-17 19:43] LABS: Basophils % (A) 0 %; Eosinophils # (A) 0.1 k/uL (0-0.7); Eosinophils % (A) 1 %; HCT 34.6 % (39.0-53.0); HGB 12.3 gm/dL (13.0-17.5); Lymphocytes # (A) 1.1 k/uL (1.0-4.8); Lymphocytes % (A) 8 %; MCH 33.1 pg (25.0-35.0); MCHC 35.6 g/dL (31.0-37.0); MCV 92.8 fL (80.0-100.0); Mean Platelet Volume 7.4; Monocytes % (A) 7 %; Neutrophils # (A) 12.2 k/uL (1.3-7.7); Neutrophils % (A) 84 %; Platelet Count 140 k/uL (150-450); RBC 3.73 m/uL (4.30-5.90); RDW 13.4 % (11.5-15.5); WBC 14.6 k/uL (3.8-10.6)
[2017-08-17 19:58] LABS: Calcium 9.2 mg/dL (8.4-10.2); Potassium 4.3 mmol/L (3.5-5.1); Total Bilirubin 0.6 mg/dL (0.2-1.3); Total Protein 6.5 g/dL (6.3-8.2)
--- NOTE | 2017-08-17 20:48 | CT ---
EXAMINATION TYPE: CT abdomen pelvis w con DATE OF EXAM: 08/17/2017 COMPARISON: 05/08/2016 HISTORY: Left sided abdominal pain. CT DLP: 1562 mGycm Automated exposure control for dose reduction was used. TECHNIQUE: Helical acquisition of images was performed from the lung bases through the pelvis. CONTRAST: Performed without Oral Contrast and with IV Contrast, patient injected with 100 mL of Isovue 300. FINDINGS: There is patchy scarring and atelectasis at the lung bases. Heart is enlarged. There is no pleural ef fusion. There are small hiatal hernia. There are small cysts in the liver that measure less than 1 cm. Spleen is normal. There is no pancreatic mass. Gallbladder appears normal. Bile ducts are not dilated. There is no adrenal mass. Kidneys show satisfactory contrast opacification. There is a 1 cm cortical cyst on the lateral left kidney. There is no hydronephrosis. There is no retroperitoneal adenopathy. There are inflammatory changes around the proximal sigmoid colon. There are multiple sigmoid divertic [place]. Bladder distends smoothly. There is retained fecal material in the rectum. There are multiple me tallic densities in the prostate from implants. I see no bony destructive process. There is multileve l spondylosis in the lumbar spine with ankylotic changes. IMPRESSION: THERE ARE CHANGES OF DIVERTICULITIS IN THE PROXIMAL SIGMOID COLON THAT IS NEW COMPARED TO OLD CT SCAN . SPONDYLOSIS. NO ABSCESS. STABLE SCARRING AND ATELECTASIS AT THE LUNG BASES.
[2017-08-17] MEDS ORDERED: metroNIDAZOLE-NS PMX 500 MG in SALINE 1 100ML.BAG IVPB STA (20:52)
[2017-08-17] MEDS ORDERED: LEVOFLOXACIN 500MG-D5W PMX 500 MG in DEXTROSE/WATER 1 100ML.BAG IVPB STA (20:52)
[2017-08-17] MEDS ORDERED: NALOXONE 0.4 MG/ML 1 ML VIAL IV PRN (20:59)
[2017-08-17 22:28] VITALS: BMI 27.4
[2017-08-18 01:09] LABS: Appearance,Urine Clear (Clear); Bilirubin,Urine Negative (Negative); Blood,Urine Negative (Negative); Color,Urine Light Yellow; Glucose,Urine (UA) Negative (Negative); Ketones,Urine Negative (Negative); Leukocyte Esterase,Urine Negative (Negative); Nitrite,Urine Negative (Negative); PH, Urine 5.5 (5.0-8.0); Protein,Urine Negative (Negative); Urobilinogen,Urine <2.0 mg/dL (<2.0)
[2017-08-18 07:29] LABS: Basophils % (A) 0 %; Eosinophils # (A) 0.1 k/uL (0-0.7); Eosinophils % (A) 1 %; HCT 33.5 % (39.0-53.0); HGB 11.4 gm/dL (13.0-17.5); Lymphocytes % (A) 11 %; MCH 32.4 pg (25.0-35.0); MCHC 34.1 g/dL (31.0-37.0); MCV 94.8 fL (80.0-100.0); Mean Platelet Volume 7.7; Monocytes # (A) 0.6 k/uL (0-1.0); Monocytes % (A) 7 %; Neutrophils # (A) 6.8 k/uL (1.3-7.7); Neutrophils % (A) 78 %; Platelet Count 129 k/uL (150-450); RBC 3.54 m/uL (4.30-5.90); RDW 13.4 % (11.5-15.5); WBC 8.7 k/uL (3.8-10.6)
[2017-08-18 07:44] LABS: Albumin 3.4 g/dL (3.5-5.0); Calcium 8.9 mg/dL (8.4-10.2); Potassium 3.9 mmol/L (3.5-5.1); Total Bilirubin 0.8 mg/dL (0.2-1.3); Total Protein 5.8 g/dL (6.3-8.2)
[2017-08-18] MEDS: metroNIDAZOLE-NS PMX 500 MG in SALINE 1 100ML.BAG IVPB SCH ×2 (08:56→15:06)
--- NOTE | 2017-08-18 16:14 | P.HPIM ---
History of Present Illness H&P Date: 08/18/17 Chief Complaint: Abdominal pain This patient is an 85-year-old man patient of Dr. Lopez, patient currently resides at the [facility] with known history of diverticular disease, prostate cancer, hypertension, hypothyroidism, walking impairment requiring wheelchair on community ambulation. He was brought into emergency room secondary to abdominal pain of 2 days' duration, left lower quadrant area no nausea no fever no dysuria, no radiation of the pain. Patient was subsequently seen in emergency room and was admitted for diverticulitis left lower quadrant area. Last colonoscopy was in his late 70s, colon polyp by Dr. Le Emergency room CAT scan shows a small hiatal hernia, small liver cyst, gallbladder normal, pancreas normal, if ventilatory changes proximal sigmoid colon, multiple sigmoid diverticula, multiple metallic densities from the prostate implants, no bony destructive processes, spondylolisthesis and lumbar spine with ankylosis. No abscess, patient was admitted with IV antibiotics, family at bedside, provides most of the recent events and current lifestyle the patient. Review of Systems Constitutional: Reports as per HPI, Reports chills, Denies anorexia, Denies chronic headaches, Denies chronic pain, Denies daytime sleepiness, Denies fatigue, Denies fever, Denies lethargy, Denies malaise, Denies night sweats, Denies poor appetite, Denies sweats, Denies weakness, Denies weight gain, Denies weight loss Ears, nose, mouth and throat: Reports as per HPI, Denies ant. neck pain, Denies bleeding gums, Denies dental pain, Denies dysphagia, Denies epistaxis, Denies headache, Denies hoarseness, Denies mouth pain, Denies nasal congestion, Denies nasal discharge, Denies neck fullness/pressure, Denies neck lump, Denies nose pain, Denies odynophagia, Denies post-nasal drip, Denies sinus pain, Denies sinus pressure, Denies swelling in mouth, Denies swelling in throat, Denies sore throat, Denies vertigo, Denies voice changes Cardiovascular: Reports as per HPI, Denies chest pain, Denies claudication, Denies decreased exercise tolerance, Denies dyspnea on exertion, Denies edema, Denies high blood pressure, Denies irregular heart beat, Denies leg edema, Denies lightheadedness, Denies orthopnea, Denies palpitations, Denies paroxysmal nocturnal dyspnea, Denies phlebitis, Denies rapid heart beat, Denies shortness of breath, Denies syncope Respiratory: Reports as per HPI, Denies congestion, Denies cough, Denies cough with sputum, Denies dyspnea, Denies excessive sputum, Denies hemoptysis, Denies home oxygen, Denies pain, Denies pain on inspiration, Denies pleurisy, Denies respiratory infections, Denies sleep apnea, Denies snoring, Denies wheezing Gastrointestinal: Reports as per HPI, Reports abdominal pain, Reports constipation, Denies belching, Denies bloating, Denies BRBPR, Denies change in bowel habits, Denies coffee ground emesis, Denies diarrhea, Denies dyspepsia, Denies early satiety, Denies excessive gas, Denies heartburn, Denies hematemesis , Denies hematochezia, Denies indigestion, Denies jaundice, Denies lactose intolerance, Denies loss of appetite, Denies melena, Denies nausea, Denies vomiting Genitourinary: Reports as per HPI Musculoskeletal: Reports as per HPI, Reports limitation of motion Integumentary: Reports as per HPI, Denies acne, Denies boils, Denies brittle nails, Denies change in hair/nails, Denies color changes, Denies darkening of skin, Denies depigmentation, Denies dryness, Denies foot/leg ulcers, Denies growths, Denies hirsutism, Denies lesions, Denies onychomycosis, Denies pruritus , Denies rash, Denies sores, Denies striae, Denies unusual bruising, Denies wounds Neurological: Reports as per HPI, Reports balance difficulties, Reports motor disturbance Psychiatric: Reports as per HPI, Denies anhedonia, Denies anxiety, Denies anxiety attacks, Denies change in appetite, Denies change in libido, Denies change in sleep habits, Denies confusion, Denies depression, Denies difficulty concentrating, Denies disorientation, Denies hallucinations, Denies hopelessness , Denies hypersomnia, Denies insomnia, Denies irritability, Denies memory loss, Denies mood swings, Denies paranoia, Denies sadness/tearfulness, Denies sleep disturbances, Denies suicidal ideation Endocrine: Reports as per HPI Hematologic/Lymphatic: Reports as per HPI, Denies easy bleeding, Denies easy bruising, Denies lymphadenopathy, Denies lymphedema, Denies thrombophilia Allergic/Immunologic: Reports as per HPI, Denies allergic rhinitis, Denies anaphylaxis, Denies angioedema, Denies gluten intolerance, Denies persistent infections, Denies seasonal allergies, Denies urticaria, Denies wheezing 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 wheelchair on community ambulation,. No history of smoking. 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 He was stationed in [employer]. He was in the [employer]. No animal exposures Smoking Status: Never smoker Past Alcohol Use History: None Reported Past Drug Use History: None Reported - Past Family History Father Family Medical History: GI Bleed Mother Family Medical History: Cancer Additional Family Medical History / Comment(s): unknown Medications and Allergies Home Medications Medication Instructions Recorded Confirmed Type Ascorbic Acid [Vitamin C] 500 mg PO DAILY 12/04/15 08/17/17 History Carbidopa-Levodopa 25-100 mg 1 tab PO TID@08,14,20 12/04/15 08/17/17 History [Sinemet 25-100 mg] Finasteride [Proscar] 5 mg PO HS 12/04/15 08/17/17 History Levothyroxine Sodium [Synthroid] 75 mcg PO MOTUWETHFRSA@07 12/04/15 08/17/17 History Metoprolol Tartrate [Lopressor] 50 mg PO BID 12/04/15 08/17/17 History Pravastatin Sodium [Pravachol] 40 mg PO HS 12/04/15 08/17/17 History Vit D3/Folic Acid/B2/B6/B12 1 tab PO DAILY@1700 12/04/15 08/17/17 History [Folgard Tablet] Levothyroxine Sodium [Synthroid] 150 mcg PO MENDOSA@07 05/08/16 08/17/17 History Sertraline [Zoloft] 100 mg PO HS 05/08/16 08/17/17 History Acetaminophen-Codeine 300-30mg 1 tab PO Q4H PRN 08/17/17 08/17/17 History [Tylenol w/codeine #3] Aspirin EC [Ecotrin Low Dose] 81 mg PO DAILY 08/17/17 08/17/17 History Bisacodyl 10 mg PO DAILY PRN 08/17/17 08/17/17 History Eye Scrub 1 applic OPHTHALMIC DAILY 08/17/17 08/17/17 History Melatonin 5 mg PO HS 08/17/17 08/17/17 History Mirabegron [Myrbetriq] 25 mg PO DAILY 08/17/17 08/17/17 History Nitroglycerin Sl Tabs [Nitrostat] 0.4 mg SUBLINGUAL Q5M PRN 08/17/17 08/17/17 History Pantoprazole [Protonix] 40 mg PO BID@,08/17/17 08/17/17 History Zinc Oxide [Desitin] 1 applic TOPICAL BID 08/17/17 08/17/17 History Allergies Allergy/AdvReac Type Severity Reaction Status Date / Time No Known Allergies Allergy Verified 08/17/17 19:52 Physical Exam Vitals: Vital Signs Temp Pulse Pulse Resp BP BP Pulse Ox 08/18/17 14:30 97.8 F 55 L 16 125/64 96 08/18/17 08:11 16 08/18/17 08:10 99.0 F 60 16 143/61 92 L 08/17/17 22:15 98.2 F 67 16 138/81 97 08/17/17 21:55 99.3 F 68 18 138/60 97 08/17/17 21:37 98.2 F 16 94 L 08/17/17 20:48 68 18 140/61 96 08/17/17 19:17 100 F H 67 20 159/72 95 Intake and Output 08/18/17 08/18/17 08/18/17 06:59 14:59 22:59 Output Total 300 Balance -300 Output: Urine 300 Other: Voiding Method Urinal Urinal Incontinent Incontinent # Voids 1 1 - Constitutional General appearance: cooperative, no acute distress - EENT Eyes: anicteric sclerae, EOMI, PERRLA, dentition normal, normal appearance ENT: NA/AT, normal oropharynx - Neck Neck: no lymphadenopathy, normal ROM, no other, no rigidity, no stridor, no thyromegaly - Respiratory Respiratory: bilateral: CTA, negative: diminished, dullness, rales, rhonchi - Cardiovascular Rhythm: regular Heart sounds: normal: S1, S2 Abnormal Heart Sounds: no systolic murmur, no diastolic murmur, no rub, no S3 Gallop, no S4 Gallop, no click, no other - Gastrointestinal General gastrointestinal: tenderness (Left lower quadrant area) Localized gastrointestinal: tender: LUQ - Integumentary Integumentary: normal, normal turgor - Neurologic Neurologic: CNII-XII intact - Musculoskeletal Musculoskeletal: generalized weakness, strength equal bilaterally - Psychiatric Psychiatric: A&O x's 3, appropriate affect, intact judgment & insight Results CBC & Chem 7: 08/18/17 07:08 08/18/17 07:08 Labs: Abnormal Lab Results - Last 24 Hours (Table) 08/17/17 08/17/17 08/18/17 Range/Units 15:25 15:25 07:08 WBC 14.6 H (3.8-10.6) k/uL RBC 3.73 L 3.54 L (4.30-5.90) m/uL Hgb 12.3 L 11.4 L (13.0-17.5) gm/dL Hct 34.6 L 33.5 L (39.0-53.0) % Plt Count 140 L 129 L (150-450) k/uL Neutrophils # 12.2 H (1.3-7.7) k/uL Sodium 136 L (137-145) mmol/L Carbon Dioxide 21 L (22-30) mmol/L BUN 34 H (9-20) mg/dL Glucose 132 H (74-99) mg/dL AST (17-59) U/L ALT 7 L (21-72) U/L Total Protein (6.3-8.2) g/dL Albumin (3.5-5.0) g/dL 08/18/17 Range/Units 07:08 WBC (3.8-10.6) k/uL RBC (4.30-5.90) m/uL Hgb (13.0-17.5) gm/dL Hct (39.0-53.0) % Plt Count (150-450) k/uL Neutrophils # (1.3-7.7) k/uL Sodium (137-145) mmol/L Carbon Dioxide (22-30) mmol/L BUN 28 H (9-20) mg/dL Glucose 104 H (74-99) mg/dL AST 15 L (17-59) U/L ALT 18 L (21-72) U/L Total Protein 5.8 L (6.3-8.2) g/dL Albumin 3.4 L (3.5-5.0) g/dL Microbiology - Last 24 Hours (Table) 08/18/17 01:00 Urine Culture - Preliminary Urine,Voided Laboratory Results WBC 8.7 k/uL (3.8-10.6) 08/18/17 07:08 RBC 3.54 m/uL (4.30-5.90) L 08/18/17 07:08 Hgb 11.4 gm/dL (13.0-17.5) L 08/18/17 07:08 Hct 33.5 % (39.0-53.0) L 08/18/17 07:08 MCV 94.8 fL (80.0-100.0) 08/18/17 07:08 MCH 32.4 pg (25.0-35.0) 08/18/17 07:08 MCHC 34.1 g/dL (31.0-37.0) 08/18/17 07:08 RDW 13.4 % (11.5-15.5) 08/18/17 07:08 Plt Count 129 k/uL (150-450) L 08/18/17 07:08 Neutrophils % 78 % 08/18/17 07:08 Lymphocytes % 11 % 08/18/17 07:08 Monocytes % 7 % 08/18/17 07:08 Eosinophils % 1 % 08/18/17 07:08 Basophils % 0 % 08/18/17 07:08 Neutrophils # 6.8 k/uL (1.3-7.7) 08/18/17 07:08 Lymphocytes # 1.0 k/uL (1.0-4.8) 08/18/17 07:08 Monocytes # 0.6 k/uL (0-1.0) 08/18/17 07:08 Eosinophils # 0.1 k/uL (0-0.7) 08/18/17 07:08 Basophils # 0.0 k/uL (0-0.2) 08/18/17 07:08 Sodium 140 mmol/L (137-145) 08/18/17 07:08 Potassium 3.9 mmol/L (3.5-5.1) 08/18/17 07:08 Chloride 101 mmol/L (98-107) 08/18/17 07:08 Carbon Dioxide 27 mmol/L (22-30) 08/18/17 07:08 Anion Gap 12 mmol/L 08/18/17 07:08 BUN 28 mg/dL (9-20) H 08/18/17 07:08 Creatinine 1.06 mg/dL (0.66-1.25) 08/18/17 07:08 Est GFR (CKD-EPI)AfAm 73 (>60 ml/min/1.73 sqM) 08/18/17 07:08 Est GFR (CKD-EPI)NonAf 63 (>60 ml/min/1.73 sqM) 08/18/17 07:08 Glucose 104 mg/dL (74-99) H 08/18/17 07:08 Plasma Lactic Acid Rene 0.7 mmol/L (0.7-2.0) 08/17/17 15:25 Calcium 8.9 mg/dL (8.4-10.2) 08/18/17 07:08 Total Bilirubin 0.8 mg/dL (0.2-1.3) 08/18/17 07:08 AST 15 U/L (17-59) L 08/18/17 07:08 ALT 18 U/L (21-72) L 08/18/17 07:08 Alkaline Phosphatase 57 U/L (38-126) 08/18/17 07:08 Total Protein 5.8 g/dL (6.3-8.2) L 08/18/17 07:08 Albumin 3.4 g/dL (3.5-5.0) L 08/18/17 07:08 Amylase 47 U/L (30-110) 08/17/17 15:25 Lipase 69 U/L (23-300) 08/17/17 15:25 Urine Color Light Yellow 08/18/17 01:00 Urine Appearance Clear (Clear) 08/18/17 01:00 Urine pH 5.5 (5.0-8.0) 08/18/17 01:00 Ur Specific [place] 1.020 (1.001-1.035) 08/18/17 01:00 Urine Protein Negative (Negative) 08/18/17 01:00 Urine Glucose (UA) Negative (Negative) 08/18/17 01:00 Urine Ketones Negative (Negative) 08/18/17 01:00 Urine Blood Negative (Negative) 08/18/17 01:00 Urine Nitrite Negative (Negative) 08/18/17 01:00 Urine Bilirubin Negative (Negative) 08/18/17 01:00 Urine Urobilinogen <2.0 mg/dL (<2.0) 08/18/17 01:00 Ur Leukocyte Esterase Negative (Negative) 08/18/17 01:00 Thrombosis Risk Factor Assmnt - DVT/VTE Prophylaxis DVT/VTE Prophylaxis: Pharmacologic Prophylaxis ordered - Choose All That Apply Each Factor Represents 1 point: Obesity (BMI >25) Each Risk Factor Represents 3 Points: Age 75 years or older Thrombosis Risk Factor Assessment Total Risk Factor Score: 4 Thrombosis Risk Factor Assessment Level: Moderate Risk Assessment and Plan Plan: 1. Acute left lower quadrant sigmoid diverticulitis, patient has no abscess or perforation noted on CAT scan, patient will be placed on clear liquid diet, IV Rocephin and IV Flagyl,. Bowel rest Advance diet gradually depending on clinical symptoms. 2. Hypertensive cardiac vascular disease on metoprolol 50 mg twice a day, pravastatin 40 mg daily 3 hypothyroidism: Patient has been on Synthroid 75 g daily. With 150 g Tuesday 4prostate cancer with brachytherapy no radiation therapy P on Proscar continued without any changes in treatment 5hypertension: On metoprolol 50 mg twice a day continue medication. 6 hyperlipidemia: ll on pravastatin 40 mg daily. 7depression: Resume Zoloft 50 milligrams daily. 8 GERD, decrease Protonix to 40 mg daily, patient was on 40 mg twice a day prior to admission continued to monitor as this is a dose change for the patient 9 debility and abnormal balance and gait: Patient be started PT/OT to avoid further decompensation and might require rehabilitation. 10 DVT prophylaxis: Patient will be on heparin 5000 units subcutaneous in use twice a day. 11 GI prophylaxis: Patient will be on Pepcid 20 mg daily.
[2017-08-18] MEDS: ENOXAPARIN 30 MG/0.3 ML SYRINGE SQ SCH (17:23)
[2017-08-18] MEDS: MELATONIN 5 MG TABLET PO SCH (20:41)
[2017-08-18] MEDS: LEVOFLOXACIN 750MG-D5W PMX 750 MG in DEXTROSE/WATER 1 150ML.BAG IVPB SCH (20:41)
[2017-08-18] MEDS: SERTRALINE 100 MG TAB PO SCH (20:41)
[2017-08-18] MEDS: FINASTERIDE 5 MG TAB PO SCH (20:42)
[2017-08-18] MEDS: PRAVASTATIN SODIUM 40 MG TAB PO SCH (20:42)
[2017-08-18] MEDS: METOPROLOL TARTRATE 50 MG TAB PO SCH (20:42)
[2017-08-19] MEDS: metroNIDAZOLE-NS PMX 500 MG in SALINE 1 100ML.BAG IVPB SCH ×3 (00:38→17:08)
[2017-08-19] MEDS ORDERED: LEVOTHYROXINE 75 MCG TAB PO SCH (06:30)
[2017-08-19] MEDS ORDERED: PANTOPRAZOLE 40 MG TABLET PO SCH (07:00)
[2017-08-19 07:32] LABS: Basophils % (A) 0 %; Eosinophils # (A) 0.2 k/uL (0-0.7); Eosinophils % (A) 2 %; HCT 37.2 % (39.0-53.0); HGB 12.6 gm/dL (13.0-17.5); Lymphocytes % (A) 13 %; MCH 32.7 pg (25.0-35.0); MCV 96.3 fL (80.0-100.0); Mean Platelet Volume 7.1; Monocytes # (A) 0.5 k/uL (0-1.0); Monocytes % (A) 6 %; Neutrophils # (A) 5.6 k/uL (1.3-7.7); Neutrophils % (A) 77 %; Platelet Count 144 k/uL (150-450); RBC 3.86 m/uL (4.30-5.90); RDW 13.4 % (11.5-15.5); WBC 7.3 k/uL (3.8-10.6)
[2017-08-19] MEDS: ENOXAPARIN 30 MG/0.3 ML SYRINGE SQ SCH (07:35)
[2017-08-19] MEDS: ASCORBIC ACID 500 MG TAB PO SCH (07:35)
[2017-08-19] MEDS: ASPIRIN 81 MG PO SCH (07:36)
[2017-08-19] MEDS: METOPROLOL TARTRATE 50 MG TAB PO SCH ×2 (07:36→07:39)
[2017-08-19] MEDS: PANTOPRAZOLE 40 MG/10 ML VIAL IVP SCH (07:37)
[2017-08-19 07:50] LABS: Albumin 3.6 g/dL (3.5-5.0); Calcium 9.4 mg/dL (8.4-10.2); Potassium 5.3 mmol/L (3.5-5.1); Total Bilirubin 0.5 mg/dL (0.2-1.3); Total Protein 6.1 g/dL (6.3-8.2)
[2017-08-19 08:46] LABS: T4, Free (Free Thyroxine) 1.09 ng/dL (0.78-2.19)
--- NOTE | 2017-08-19 14:32 | P.PN ---
Subjective Progress Note Date: 08/19/17 This patient is an 85-year-old man patient of Dr. Lopez, patient currently resides at the [facility] with known history of diverticular disease, prostate cancer, hypertension, hypothyroidism, walking impairment requiring wheelchair on community ambulation. He was brought into emergency room secondary to abdominal pain of 2 days' duration, left lower quadrant area no nausea no fever no dysuria, no radiation of the pain. Patient was subsequently seen in emergency room and was admitted for diverticulitis left lower quadrant area. Last colonoscopy was in his late 70s, colon polyp by Dr. Le Emergency room CAT scan shows a small hiatal hernia, small liver cyst, gallbladder normal, pancreas normal, if ventilatory changes proximal sigmoid colon, multiple sigmoid diverticula, multiple metallic densities from the prostate implants, no bony destructive processes, spondylolisthesis and lumbar spine with ankylosis. No abscess, patient was admitted with IV antibiotics, family at bedside, provides most of the recent events and current lifestyle the patient. 08/19: Patient is currently on a clear liquid diet and tolerating this. We will plan to increase his diet to full liquid in the morning. Repeat abdominal x- ray for the morning. Patient's TSH is elevated at 9 and levothyroxine will be changed to 100 g daily. Patient's heart rate has been running in the low 50s but blood pressure elevated. Lopressor was held this morning by nursing and his dose of 50 mg twice daily will be decreased to 12.5 mg twice daily. Discharge plan is to return to [facility]. Most likely patient will be ready for discharge on Tuesday. Objective - Vital Signs Vital signs: Vital Signs Temp 98.4 F 08/19/17 07:35 Pulse 53 L 08/19/17 07:35 Resp 16 08/19/17 07:35 BP 169/84 08/19/17 07:35 Pulse Ox 97 08/19/17 07:35 Intake & Output 08/18/17 08/19/17 08/19/17 18:59 06:59 18:59 Intake Total 175 Output Total 500 325 Balance 175 -500 -325 Intake: Oral 175 Output: Urine 500 325 Other: Voiding Method Urinal Urinal Incontinent Diaper Incontinent # Voids 1 3 - Exam General appearance: cooperative, no acute distress - EENT Eyes: anicteric sclerae, EOMI, PERRLA, dentition normal, normal appearance ENT: NA/AT, normal oropharynx - Neck Neck: no lymphadenopathy, normal ROM, no other, no rigidity, no stridor, no thyromegaly - Respiratory Respiratory: bilateral: CTA, negative: diminished, dullness, rales, rhonchi - Cardiovascular Rhythm: regular Heart sounds: normal: S1, S2 Abnormal Heart Sounds: no systolic murmur, no diastolic murmur, no rub, no S3 Gallop, no S4 Gallop, no click, no other - Gastrointestinal General gastrointestinal: tenderness (Left lower quadrant area) Localized gastrointestinal: tender: LUQ - Integumentary Integumentary: normal, normal turgor - Neurologic Neurologic: CNII-XII intact - Musculoskeletal Musculoskeletal: generalized weakness, strength equal bilaterally - Psychiatric Psychiatric: A&O x's 3, appropriate affect, intact judgment & insight - Labs CBC & Chem 7: 08/19/17 07:03 08/19/17 07:03 Labs: Abnormal Lab Results - Last 24 Hours (Table) 08/19/17 08/19/17 Range/Units 07:03 07:03 RBC 3.86 L (4.30-5.90) m/uL Hgb 12.6 L (13.0-17.5) gm/dL Hct 37.2 L (39.0-53.0) % Plt Count 144 L (150-450) k/uL Potassium 5.3 H (3.5-5.1) mmol/L BUN 25 H (9-20) mg/dL Glucose 104 H (74-99) mg/dL Total Protein 6.1 L (6.3-8.2) g/dL TSH 9.030 H (0.465-4.680) mIU/L Microbiology - Last 24 Hours (Table) 08/18/17 01:00 Urine Culture - Preliminary Urine,Voided Assessment and Plan Plan: 1. Acute left lower quadrant sigmoid diverticulitis, patient has no abscess or perforation noted on CAT scan, patient will be placed on clear liquid diet, IV Rocephin and IV Flagyl,. Bowel rest Advance diet gradually depending on clinical symptoms. 2. Hypertensive cardiac vascular disease on metoprolol 50 mg twice a day, pravastatin 40 mg daily 3. Hypothyroidism: Patient has been on Synthroid 75 g daily. With 150 g Tuesday. TSH is elevated and levothyroxine will be changed to 100 g daily. 4. Prostate cancer with brachytherapy no radiation therapy. Continue Proscar 5. Hypertension: On metoprolol 50 mg twice a day which is decreased to 12.5 mg twice daily due to bradycardia. Lopressor to be held for heart rate less than 55. 6. Hyperlipidemia: on pravastatin 40 mg daily. 7. Recurrent depression: Resume Zoloft 50 milligrams daily. 8. GERD, decrease Protonix to 40 mg daily, patient was on 40 mg twice a day prior to admission continued to monitor as this is a dose change for the patient 9. Debility and abnormal balance and gait: Patient be started PT/OT to avoid further decompensation. 10. DVT prophylaxis: Patient will be on heparin 5000 units subcutaneous in use twice a day. 11. GI prophylaxis: Protonix. Discharge plan: return home to [facility], no home care. Impression and plan of care have been directed as dictated by the signing physician. Rowena Lott nurse practitioner acting as scribe for signing physician.
[2017-08-19] MEDS: METOPROLOL TARTRATE 12.5 MG TAB PO SCH (21:42)
[2017-08-19] MEDS: LEVOFLOXACIN 750MG-D5W PMX 750 MG in DEXTROSE/WATER 1 150ML.BAG IVPB SCH (21:42)
[2017-08-19] MEDS: FINASTERIDE 5 MG TAB PO SCH (21:42)
[2017-08-19] MEDS: PRAVASTATIN SODIUM 40 MG TAB PO SCH (21:42)
[2017-08-19] MEDS: MELATONIN 5 MG TABLET PO SCH (21:42)
[2017-08-19] MEDS: SERTRALINE 100 MG TAB PO SCH (21:43)
[2017-08-20] MEDS: metroNIDAZOLE-NS PMX 500 MG in SALINE 1 100ML.BAG IVPB SCH ×4 (00:23→23:31)
[2017-08-20] MEDS: LEVOTHYROXINE 100 MCG TAB PO SCH (05:35)
[2017-08-20 07:12] LABS: Basophils % (A) 0 %; Eosinophils # (A) 0.1 k/uL (0-0.7); Eosinophils % (A) 2 %; HCT 35.4 % (39.0-53.0); HGB 12.1 gm/dL (13.0-17.5); Lymphocytes # (A) 0.9 k/uL (1.0-4.8); Lymphocytes % (A) 12 %; MCH 32.3 pg (25.0-35.0); MCHC 34.1 g/dL (31.0-37.0); MCV 94.7 fL (80.0-100.0); Mean Platelet Volume 6.9; Monocytes # (A) 0.5 k/uL (0-1.0); Monocytes % (A) 7 %; Neutrophils # (A) 5.9 k/uL (1.3-7.7); Neutrophils % (A) 78 %; Platelet Count 150 k/uL (150-450); RBC 3.74 m/uL (4.30-5.90); RDW 13.2 % (11.5-15.5); WBC 7.5 k/uL (3.8-10.6)
[2017-08-20 07:25] LABS: Albumin 3.5 g/dL (3.5-5.0); Calcium 8.9 mg/dL (8.4-10.2); Potassium 4.3 mmol/L (3.5-5.1); Total Bilirubin 0.5 mg/dL (0.2-1.3); Total Protein 5.8 g/dL (6.3-8.2)
[2017-08-20] MEDS: ASPIRIN 81 MG PO SCH (08:55)
[2017-08-20] MEDS: ASCORBIC ACID 500 MG TAB PO SCH (08:55)
[2017-08-20] MEDS: ENOXAPARIN 30 MG/0.3 ML SYRINGE SQ SCH (08:55)
[2017-08-20] MEDS: METOPROLOL TARTRATE 12.5 MG TAB PO SCH ×2 (08:55→20:10)
[2017-08-20] MEDS: PANTOPRAZOLE 40 MG/10 ML VIAL IVP SCH (09:29)
--- NOTE | 2017-08-20 17:37 | P.PN ---
Subjective Progress Note Date: 08/20/17 This patient is an 85-year-old man patient of Dr. Lopez, patient currently resides at the [facility] with known history of diverticular disease, prostate cancer, hypertension, hypothyroidism, walking impairment requiring wheelchair on community ambulation. He was brought into emergency room secondary to abdominal pain of 2 days' duration, left lower quadrant area no nausea no fever no dysuria, no radiation of the pain. Patient was subsequently seen in emergency room and was admitted for diverticulitis left lower quadrant area. Last colonoscopy was in his late 70s, colon polyp by Dr. Le Emergency room CAT scan shows a small hiatal hernia, small liver cyst, gallbladder normal, pancreas normal, if ventilatory changes proximal sigmoid colon, multiple sigmoid diverticula, multiple metallic densities from the prostate implants, no bony destructive processes, spondylolisthesis and lumbar spine with ankylosis. No abscess, patient was admitted with IV antibiotics, family at bedside, provides most of the recent events and current lifestyle the patient. 08/19: Patient is currently on a clear liquid diet and tolerating this. We will plan to increase his diet to full liquid in the morning. Repeat abdominal x- ray for the morning. Patient's TSH is elevated at 9 and levothyroxine will be changed to 100 g daily. Patient's heart rate has been running in the low 50s but blood pressure elevated. Lopressor was held this morning by nursing and his dose of 50 mg twice daily will be decreased to 12.5 mg twice daily. Discharge plan is to return to [facility]. Most likely patient will be ready for discharge on Tuesday. 08/20 patient is currently on full liquid diet. Continues to have left lower quadrant abdominal pain which is better than yesterday. No bowel movement yesterday. Likely discharge tomorrow Objective - Vital Signs Vital signs: Vital Signs Temp 99.2 F 08/20/17 14:25 Pulse 64 08/20/17 14:25 Resp 15 08/20/17 14:25 BP 130/80 08/20/17 14:25 Pulse Ox 100 08/20/17 14:25 Intake & Output 08/19/17 08/20/17 08/20/17 18:59 06:59 18:59 Intake Total 275 1480 230 Output Total 325 400 Balance -50 1480 -170 Intake: Intake, IV Titration 100 350 Amount Levofloxacin 750Mg-D5w 150 Pmx 750 mg In Dextrose/ Water 1 150ml.bag @ 100 mls/hr IVPB Q24H JASON Rx#: [id number] metroNIDAZOLE-NS PMX 500 100 200 mg In Saline 1 100ml.bag @ 100 mls/hr IVPB Q8HR [facility] Rx#:[id number] Oral 175 1130 230 Output: Urine 325 400 Other: Voiding Method Urinal Urinal Diaper Diaper Incontinent Incontinent # Voids 2 3 1 - Exam - Exam General appearance: cooperative, no acute distress - EENT Eyes: anicteric sclerae, EOMI, PERRLA, dentition normal, normal appearance ENT: NA/AT, normal oropharynx - Neck Neck: no lymphadenopathy, normal ROM, no other, no rigidity, no stridor, no thyromegaly - Respiratory Respiratory: bilateral: CTA, negative: diminished, dullness, rales, rhonchi - Cardiovascular Rhythm: regular Heart sounds: normal: S1, S2 Abnormal Heart Sounds: no systolic murmur, no diastolic murmur, no rub, no S3 Gallop, no S4 Gallop, no click, no other - Gastrointestinal General gastrointestinal: tenderness (Left lower quadrant area) Localized gastrointestinal: tender: LLQ - Integumentary Integumentary: normal, normal turgor - Neurologic Neurologic: CNII-XII intact - Musculoskeletal Musculoskeletal: generalized weakness, strength equal bilaterally - Psychiatric Psychiatric: A&O x's 3, appropriate affect, intact judgment & insight - Labs CBC & Chem 7: 08/21/17 06:36 08/20/17 06:44 Labs: Abnormal Lab Results - Last 24 Hours (Table) 08/20/17 08/20/17 Range/Units 06:44 06:44 RBC 3.74 L (4.30-5.90) m/uL Hgb 12.1 L (13.0-17.5) gm/dL Hct 35.4 L (39.0-53.0) % Lymphocytes # 0.9 L (1.0-4.8) k/uL Glucose 102 H (74-99) mg/dL Total Protein 5.8 L (6.3-8.2) g/dL Microbiology - Last 24 Hours (Table) 08/18/17 01:00 Urine Culture - Final Urine,Voided Assessment and Plan Plan: 1. Acute left lower quadrant sigmoid diverticulitis, patient has no abscess or perforation noted on CAT scan, patient will be placed on clear liquid diet, IV Rocephin and IV Flagyl,. Bowel rest Advance diet gradually depending on clinical symptoms. 2. Hypertensive cardiac vascular disease on metoprolol 50 mg twice a day, pravastatin 40 mg daily 3. Hypothyroidism: Patient has been on Synthroid 75 g daily. With 150 g Tuesday. TSH is elevated and levothyroxine will be changed to 100 g daily. 4. Prostate cancer with brachytherapy no radiation therapy. Continue Proscar 5. Hypertension: On metoprolol 50 mg twice a day which is decreased to 12.5 mg twice daily due to bradycardia. Lopressor to be held for heart rate less than 55. 6. Hyperlipidemia: on pravastatin 40 mg daily. 7. Recurrent depression: Resume Zoloft 50 milligrams daily. 8. GERD, decrease Protonix to 40 mg daily, patient was on 40 mg twice a day prior to admission continued to monitor as this is a dose change for the patient 9. Debility and abnormal balance and gait: Patient be started PT/OT to avoid further decompensation. 10. DVT prophylaxis: Patient will be on heparin 5000 units subcutaneous in use twice a day. 11. GI prophylaxis: Protonix. Discharge plan: return home to [facility], no home care.
[2017-08-20] MEDS: ACETAMINOPHEN TAB 325 MG TAB PO PRN (18:52)
[2017-08-20] MEDS: PRAVASTATIN SODIUM 40 MG TAB PO SCH (20:10)
[2017-08-20] MEDS: SERTRALINE 100 MG TAB PO SCH (20:10)
[2017-08-20] MEDS: LEVOFLOXACIN 750MG-D5W PMX 750 MG in DEXTROSE/WATER 1 150ML.BAG IVPB SCH (20:10)
[2017-08-20] MEDS: MELATONIN 5 MG TABLET PO SCH (20:10)
[2017-08-20] MEDS: FINASTERIDE 5 MG TAB PO SCH (20:10)
[2017-08-20] MEDS ORDERED: ALPRAZolam 0.25 MG TAB PO PRN (22:29)
[2017-08-21] MEDS: LEVOTHYROXINE 100 MCG TAB PO SCH (04:56)
[2017-08-21] MEDS ORDERED: LEVOTHYROXINE 75 MCG TAB PO SCH (06:30)
[2017-08-21 06:50] LABS: Basophils % (A) 0 %; Eosinophils # (A) 0.1 k/uL (0-0.7); Eosinophils % (A) 1 %; HCT 33.9 % (39.0-53.0); Lymphocytes # (A) 0.8 k/uL (1.0-4.8); Lymphocytes % (A) 10 %; MCH 32.8 pg (25.0-35.0); MCHC 35.4 g/dL (31.0-37.0); MCV 92.7 fL (80.0-100.0); Mean Platelet Volume 7.2; Monocytes # (A) 0.6 k/uL (0-1.0); Monocytes % (A) 7 %; Neutrophils # (A) 6.4 k/uL (1.3-7.7); Neutrophils % (A) 80 %; Platelet Count 141 k/uL (150-450); RBC 3.65 m/uL (4.30-5.90); RDW 13.1 % (11.5-15.5)
[2017-08-21] MEDS: METOPROLOL TARTRATE 12.5 MG TAB PO SCH ×2 (09:40→19:56)
[2017-08-21] MEDS: ASPIRIN 81 MG PO SCH (09:40)
[2017-08-21] MEDS: ENOXAPARIN 30 MG/0.3 ML SYRINGE SQ SCH (09:40)
[2017-08-21] MEDS: PANTOPRAZOLE 40 MG/10 ML VIAL IVP SCH (09:40)
[2017-08-21] MEDS: ASCORBIC ACID 500 MG TAB PO SCH (09:40)
[2017-08-21] MEDS: metroNIDAZOLE-NS PMX 500 MG in SALINE 1 100ML.BAG IVPB SCH (09:41)
[2017-08-21] MEDS ORDERED: NITROGLYCERIN SL TABS 0.4 MG TAB SUBLINGUAL PRN (12:41)
[2017-08-21] MEDS: CARBIDOPA-LEVODOPA 25-100 MG 1 EACH TAB PO SCH ×2 (14:31→19:57)
[2017-08-21] MEDS: POLYETHYLENE GLYCOL 3350 17 GM POWD.PACK PO SCH (14:31)
[2017-08-21] MEDS: ACETAMINOPHEN TAB 325 MG TAB PO PRN (15:14)
--- NOTE | 2017-08-21 16:23 | P.PN ---
Subjective Progress Note Date: 08/21/17 This patient is an 85-year-old man patient of Dr. Lopez, patient currently resides at the [facility] with known history of diverticular disease, prostate cancer, hypertension, hypothyroidism, walking impairment requiring wheelchair on community ambulation. He was brought into emergency room secondary to abdominal pain of 2 days' duration, left lower quadrant area no nausea no fever no dysuria, no radiation of the pain. Patient was subsequently seen in emergency room and was admitted for diverticulitis left lower quadrant area. Last colonoscopy was in his late 70s, colon polyp by Dr. Le Emergency room CAT scan shows a small hiatal hernia, small liver cyst, gallbladder normal, pancreas normal, if ventilatory changes proximal sigmoid colon, multiple sigmoid diverticula, multiple metallic densities from the prostate implants, no bony destructive processes, spondylolisthesis and lumbar spine with ankylosis. No abscess, patient was admitted with IV antibiotics, family at bedside, provides most of the recent events and current lifestyle the patient. 08/19: Patient is currently on a clear liquid diet and tolerating this. We will plan to increase his diet to full liquid in the morning. Repeat abdominal x- ray for the morning. Patient's TSH is elevated at 9 and levothyroxine will be changed to 100 g daily. Patient's heart rate has been running in the low 50s but blood pressure elevated. Lopressor was held this morning by nursing and his dose of 50 mg twice daily will be decreased to 12.5 mg twice daily. Discharge plan is to return to [facility]. Most likely patient will be ready for discharge on Tuesday. 08/20 patient is currently on full liquid diet. Continues to have left lower quadrant abdominal pain which is better than yesterday. No bowel movement yesterday. Likely discharge tomorrow 08/21 Patient appears tired and confused this morning. Still have discomfort in left lower quadrant. No bowel movement for the past 2 days. Patient has lost his appetite but did eat his breakfast today. PT evaluation is pending to see if patient is eligible for [facility] Objective - Vital Signs Vital signs: Vital Signs Temp 98.8 F 08/21/17 09:16 Pulse 66 08/21/17 09:16 Resp 20 08/21/17 09:16 BP 142/69 08/21/17 09:16 Pulse Ox 98 08/21/17 09:16 Intake & Output 08/20/17 08/21/17 08/21/17 18:59 06:59 18:59 Intake Total 230 300 Output Total 400 Balance -170 300 Intake: Oral 230 Other 300 Output: Urine 400 Other: Voiding Method Urinal Urinal Diaper Diaper Incontinent Incontinent # Voids 1 1 3 - Exam - Exam General appearance: cooperative, no acute distress - EENT Eyes: anicteric sclerae, EOMI, PERRLA, dentition normal, normal appearance ENT: NA/AT, normal oropharynx - Neck Neck: no lymphadenopathy, normal ROM, no other, no rigidity, no stridor, no thyromegaly - Respiratory Respiratory: bilateral: CTA, negative: diminished, dullness, rales, rhonchi - Cardiovascular Rhythm: regular Heart sounds: normal: S1, S2 Abnormal Heart Sounds: no systolic murmur, no diastolic murmur, no rub, no S3 Gallop, no S4 Gallop, no click, no other - Gastrointestinal General gastrointestinal: tenderness (Left lower quadrant area) Localized gastrointestinal: tender: LLQ - Integumentary Integumentary: normal, normal turgor - Neurologic Neurologic: CNII-XII intact - Musculoskeletal Musculoskeletal: generalized weakness, strength equal bilaterally - Psychiatric Psychiatric: A&O x's 2, appropriate affect, intact judgment & insight - Labs CBC & Chem 7: 08/21/17 06:36 08/20/17 06:44 Labs: Abnormal Lab Results - Last 24 Hours (Table) 08/21/17 Range/Units 06:36 RBC 3.65 L (4.30-5.90) m/uL Hgb 12.0 L (13.0-17.5) gm/dL Hct 33.9 L (39.0-53.0) % Plt Count 141 L (150-450) k/uL Lymphocytes # 0.8 L (1.0-4.8) k/uL Assessment and Plan Plan: 1. Acute left lower quadrant sigmoid diverticulitis, patient has no abscess or perforation noted on CAT scan, patient will be placed on clear liquid diet, IV Rocephin and IV Flagyl,. Bowel rest Advance diet gradually depending on clinical symptoms. 2. Hypertensive cardiac vascular disease on metoprolol 50 mg twice a day, pravastatin 40 mg daily 3. Hypothyroidism: Patient has been on Synthroid 75 g daily. With 150 g Tuesday. TSH is elevated and levothyroxine will be changed to 100 g daily. 4. Prostate cancer with brachytherapy no radiation therapy. Continue Proscar 5. Hypertension: On metoprolol 50 mg twice a day which is decreased to 12.5 mg twice daily due to bradycardia. Lopressor to be held for heart rate less than 55. 6. Hyperlipidemia: on pravastatin 40 mg daily. 7. Recurrent depression: Resume Zoloft 50 milligrams daily. 8. GERD, decrease Protonix to 40 mg daily, patient was on 40 mg twice a day prior to admission continued to monitor as this is a dose change for the patient 9. Debility and abnormal balance and gait: Patient be started PT/OT to avoid further decompensation. 10. DVT prophylaxis: Patient will be on heparin 5000 units subcutaneous in use twice a day. 11. GI prophylaxis: Protonix. 12. Muscle spasm - reuip initiated 0.25 mg po qhs. Xaanx made patient drowsy will avoid Discharge plan: return home to [facility], no home care.
--- NOTE | 2017-08-21 16:44 | XR ---
EXAMINATION TYPE: XR abdomen 1V DATE OF EXAM: 08/21/2017 4:36 PM CLINICAL HISTORY: Left sided abdominal pain with known ileitis TECHNIQUE: Single supine KUB image of the abdomen is obtained. COMPARISON: CT abdomen pelvis dated 08/17/2017. FINDINGS: Scattered gas is seen in non-distended small bowel loops. Gas and fecal material is seen in non-distended colon. There is no abnormal calcification appreciated. The lung bases are clear and th e osseous structures are intact. Prostatic radiation beads are incidentally seen. S-shaped scoliotic curvature of the visualized thoracolumbar spine with extensive degenerative changes are present. Mode rate degenerative changes of the femoral acetabular joints are also seen. Heterotopic ossification is seen surrounding the left femur. IMPRESSION: Nonobstructive bowel gas pattern.
[2017-08-21] MEDS: metroNIDAZOLE 500 MG TAB PO SCH ×2 (17:28→23:32)
[2017-08-21] MEDS: FINASTERIDE 5 MG TAB PO SCH (19:56)
[2017-08-21] MEDS: MELATONIN 5 MG TABLET PO SCH (19:56)
[2017-08-21] MEDS: SERTRALINE 100 MG TAB PO SCH (19:56)
[2017-08-21] MEDS: PRAVASTATIN SODIUM 40 MG TAB PO SCH (19:57)
[2017-08-21] MEDS ORDERED: LEVOFLOXACIN 750 MG TAB PO SCH (21:00)
[2017-08-22] MEDS: LEVOTHYROXINE 100 MCG TAB PO SCH (04:48)
[2017-08-22] MEDS: ACETAMINOPHEN TAB 325 MG TAB PO PRN (04:51)
[2017-08-22] MEDS ORDERED: PANTOPRAZOLE 40 MG TABLET PO SCH (07:30)
[2017-08-22] MEDS: POLYETHYLENE GLYCOL 3350 17 GM POWD.PACK PO SCH (08:36)
[2017-08-22] MEDS: METOPROLOL TARTRATE 12.5 MG TAB PO SCH (08:36)
[2017-08-22] MEDS: ENOXAPARIN 30 MG/0.3 ML SYRINGE SQ SCH (08:36)
[2017-08-22] MEDS: ASCORBIC ACID 500 MG TAB PO SCH (08:37)
[2017-08-22] MEDS: CARBIDOPA-LEVODOPA 25-100 MG 1 EACH TAB PO SCH ×2 (08:37→13:18)
[2017-08-22] MEDS: metroNIDAZOLE 500 MG TAB PO SCH (08:37)
[2017-08-22] MEDS: ASPIRIN 81 MG PO SCH (08:38)
[2017-08-22] MEDS ORDERED: [UNRECOGNIZED DRUG - OTHER] OPHTHALMIC SCH (09:00)
[2017-08-22 10:34] VITALS: PULSE 69
--- NOTE | 2017-08-22 12:01 | P.DS ---
Providers Date of admission: 08/17/17 20:59 Expected date of discharge: 08/22/17 Attending physician: Eugenia Briggs Primary care physician: Arsalan Lopez [facility] Course: This patient is an 85-year-old man patient of Dr. Lopez, patient currently resides at the [facility] with known history of diverticular disease, prostate cancer, hypertension, hypothyroidism, walking impairment requiring wheelchair on community ambulation. He was brought into emergency room secondary to abdominal pain of 2 days' duration, left lower quadrant area no nausea no fever no dysuria, no radiation of the pain. Patient was subsequently seen in emergency room and was admitted for diverticulitis left lower quadrant area. Last colonoscopy was in his late 70s, colon polyp by Dr. Le Emergency room CAT scan shows a small hiatal hernia, small liver cyst, gallbladder normal, pancreas normal, if ventilatory changes proximal sigmoid colon, multiple sigmoid diverticula, multiple metallic densities from the prostate implants, no bony destructive processes, spondylolisthesis and lumbar spine with ankylosis. No abscess, patient was admitted with IV antibiotics, family at bedside, provides most of the recent events and current lifestyle the patient. 08/19: Patient is currently on a clear liquid diet and tolerating this. We will plan to increase his diet to full liquid in the morning. Repeat abdominal x- ray for the morning. Patient's TSH is elevated at 9 and levothyroxine will be changed to 100 g daily. Patient's heart rate has been running in the low 50s but blood pressure elevated. Lopressor was held this morning by nursing and his dose of 50 mg twice daily will be decreased to 12.5 mg twice daily. Discharge plan is to return to [facility]. Most likely patient will be ready for discharge on Tuesday. 08/20 patient is currently on full liquid diet. Continues to have left lower quadrant abdominal pain which is better than yesterday. No bowel movement yesterday. Likely discharge tomorrow 08/21 Patient appears tired and confused this morning. Still have discomfort in left lower quadrant. No bowel movement for the past 2 days. Patient has lost his appetite but did eat his breakfast today. PT evaluation is pending to see if patient is eligible for [facility] 08/22: Daughter and patient are agreeable for [facility] for subacute rehab. Patient is eating very little. He is currently on full liquid diet and will plan to advance to soft, low fiber diet. Patient has not had bowel movement since Tuesday. He was started on Miralax yesterday. Patient will be discharged today in stable condition. Discharge diagnoses: 1. Acute left lower quadrant sigmoid diverticulitis 2. Hypertensive cardiac vascular disease 3. Hypothyroidism: Patie 4. Prostate cancer with brachytherapy no radiation therapy. 5. Hypertension 6. Hyperlipidemia: 7. Recurrent depression 8. GERD 9. Debility and abnormal balance and gait 10. Muscle spasm Discharge plan: [place] today under the care of Dr. Lopez Impression and plan of care have been directed as dictated by the signing physician. Rowena Lott nurse practitioner acting as scribe for signing physician. Patient Condition at Discharge: Good Plan - Discharge Summary Discharge Rx Participant: No New Discharge Prescriptions: New Levofloxacin [Levaquin] 250 mg PO DAILY #5 tab Levothyroxine Sodium [Synthroid] 100 mcg PO DAILY@0630 tab Metoprolol Tartrate [Lopressor] 12.5 mg PO BID tab metroNIDAZOLE [Flagyl] 500 mg PO Q8HR #15 tab Polyethylene Glycol 3350 [Miralax] 17 gm PO DAILY powd.pack rOPINIRole HCL [Requip] 0.25 mg PO HS tab Continue Carbidopa-Levodopa 25-100 mg [Sinemet 25-100 mg] 1 tab PO TID@08,14,20 Vit D3/Folic Acid/B2/B6/B12 [Folgard Tablet] 1 tab PO DAILY@1700 Pravastatin Sodium [Pravachol] 40 mg PO HS Finasteride [Proscar] 5 mg PO HS Ascorbic Acid [Vitamin C] 500 mg PO DAILY Sertraline [Zoloft] 100 mg PO HS Mirabegron [Myrbetriq] 25 mg PO DAILY Eye Scrub 1 applic OPHTHALMIC DAILY Aspirin EC [Ecotrin Low Dose] 81 mg PO DAILY Melatonin 5 mg PO HS Pantoprazole [Protonix] 40 mg PO BID@07,16 Nitroglycerin Sl Tabs [Nitrostat] 0.4 mg SUBLINGUAL Q5M PRN PRN Reason: Chest Pain Zinc Oxide [Desitin] 1 applic TOPICAL BID Bisacodyl 10 mg PO DAILY PRN PRN Reason: Constipation Acetaminophen-Codeine 300-30mg [Tylenol w/codeine #3] 1 tab PO Q4H PRN PRN Reason: Pain Discontinued Levothyroxine Sodium [Synthroid] 75 mcg PO [id number]@[id number] Metoprolol Tartrate [Lopressor] 50 mg PO BID Levothyroxine Sodium [Synthroid] 150 mcg PO MENDOSA@07 Discharge Medication List Ascorbic Acid [Vitamin C] 500 mg PO DAILY 12/04/15 [History] Carbidopa-Levodopa 25-100 mg [Sinemet 25-100 mg] 1 tab PO TID@08,14,20 12/04/15 [History] Finasteride [Proscar] 5 mg PO HS 12/04/15 [History] Pravastatin Sodium [Pravachol] 40 mg PO HS 12/04/15 [History] Vit D3/Folic Acid/B2/B6/B12 [Folgard Tablet] 1 tab PO DAILY@1700 12/04/15 [ History] Sertraline [Zoloft] 100 mg PO HS 05/08/16 [History] Acetaminophen-Codeine 300-30mg [Tylenol w/codeine #3] 1 tab PO Q4H PRN 08/17/17 [History] Aspirin EC [Ecotrin Low Dose] 81 mg PO DAILY 08/17/17 [History] Bisacodyl 10 mg PO DAILY PRN 08/17/17 [History] Eye Scrub 1 applic OPHTHALMIC DAILY 08/17/17 [History] Melatonin 5 mg PO HS 08/17/17 [History] Mirabegron [Myrbetriq] 25 mg PO DAILY 08/17/17 [History] Nitroglycerin Sl Tabs [Nitrostat] 0.4 mg SUBLINGUAL Q5M PRN 08/17/17 [History] Pantoprazole [Protonix] 40 mg PO BID@07,16 08/17/17 [History] Zinc Oxide [Desitin] 1 applic TOPICAL BID 08/17/17 [History] Levofloxacin [Levaquin] 250 mg PO DAILY #5 tab 08/22/17 [Rx] Levothyroxine Sodium [Synthroid] 100 mcg PO DAILY@0630 tab 08/22/17 [Rx] Metoprolol Tartrate [Lopressor] 12.5 mg PO BID tab 08/22/17 [Rx] Polyethylene Glycol 3350 [Miralax] 17 gm PO DAILY powd.pack 08/22/17 [Rx] metroNIDAZOLE [Flagyl] 500 mg PO Q8HR #15 tab 08/22/17 [Rx] rOPINIRole HCL [Requip] 0.25 mg PO HS tab 08/22/17 [Rx] Follow up Appointment(s)/Referral(s): Arsalan Lopez MD [Primary Care Provider] - 1 Week (at [facility] )
[2017-08-22 14:45] VITALS: BP 118/74; RESP 16; TEMP 97.8
== END 2017-08-22 14:43 | DRG 392 ==
LOC: EC 19:06 → 3SUR 20:59
PROVIDERS: ADMIT Family Medicine; ATTEND Family Medicine
DX: K57.32 Diverticulitis of large intestine without perforation or abscess without bleeding (principal); F33.9 Major depressive disorder, recurrent, unspecified; I10 Essential (primary) hypertension; E03.9 Hypothyroidism, unspecified; E78.5 Hyperlipidemia, unspecified; K21.9 Gastro-esophageal reflux disease without esophagitis; R53.81 Other malaise; C61 Malignant neoplasm of prostate; E66.9 Obesity, unspecified; F41.9 Anxiety disorder, unspecified; M62.838 Other muscle spasm; K44.9 Diaphragmatic hernia without obstruction or gangrene; K76.89 Other specified diseases of liver; Z86.010 Personal history of colon polyps; Z68.27 Body mass index [BMI] 27.0-27.9, adult; Z79.82 Long term (current) use of aspirin; Z85.828 Personal history of other malignant neoplasm of skin; Z79.899 Other long term (current) drug therapy; Z79.890 Hormone replacement therapy; Z80.9 Family history of malignant neoplasm, unspecified
CPT/HCPCS: 36415; 74018; 74177; 80053; 81003; 82150; 83605; 83690; 84439; 84443; 85025; 87086; 96365; 99285

== ENCOUNTER 2017-09-19 04:25 | Emergency (ER) | payer MEDICARE, BC ==
[2017-09-19 04:34] VITALS: RESP 18; TEMP 97.7
--- NOTE | 2017-09-19 05:12 | CT ---
EXAMINATION TYPE: CT facial bones wo con DATE OF EXAM: 09/19/2017 COMPARISON: NONE HISTORY: fall CT DLP: 2185.00 mGycm Automated exposure control for dose reduction was used. TECHNIQUE: CT scan of the sinuses is performed without contrast, axial images are obtained, coronal r eformatted images are also reviewed. FINDINGS: The orbital margins are intact. There is no evidence of blowout fracture. There is fairly n ormal aeration of the paranasal sinuses. Nasal bone appears intact. There is no evidence of retro-orb ital mass. The mandibular ring appears intact. Zygomatic arches appear normal. Maxilla is intact. IMPRESSION: Negative CT scan of the facial bones. No fracture seen.
--- NOTE | 2017-09-19 05:18 | CT ---
EXAMINATION TYPE: CT brain jose ramon blackmon DATE OF EXAM: 09/19/2017 COMPARISON: NONE HISTORY: fall CT DLP: 2185.00 mGycm Automated exposure control for dose reduction was used. TECHNIQUE: CT scan of the head and cervical spine are performed without contrast. FINDINGS: There is cerebral cortical atrophy. There is no mass effect nor midline shift. There is n o sign of intracranial hemorrhage. The calvarium is intact. There is patchy hypodensity in the perive ntricular white matter. Cervical vertebra have fairly normal alignment. There is narrowing of disc spaces with spurring of th e endplates. Posterior elements are intact the skull base is intact. I see no fracture. IMPRESSION: Cerebral atrophy and chronic small vessel ischemia. No acute intracranial abnormality. Spondylotic changes in the cervical spine. No fracture seen.
--- NOTE | 2017-09-19 06:19 | ED ---
General Adult HPI - General Chief complaint: Fall Stated complaint: Fall, Head Injury Time Seen by Provider: 09/19/17 04:28 Source: EMS, RN notes reviewed, old records reviewed Mode of arrival: EMS Limitations: no limitations - History of Present Illness Initial comments: This is an 79-year-old male the ER for evaluation, patient is positive for strain with out of bed, did wet his head on the dresser. Patient has no loss of consciousness. Currently awake and alert without any complaint. Patient has no blood thinners - Related Data Home Medications Medication Instructions Recorded Confirmed Ascorbic Acid [Vitamin C] 500 mg PO DAILY 12/04/15 08/17/17 Carbidopa-Levodopa 25-100 mg 1 tab PO TID@08,,12/04/15 08/17/17 [Sinemet 25-100 mg] Finasteride [Proscar] 5 mg PO HS 12/04/15 08/17/17 Pravastatin Sodium [Pravachol] 40 mg PO HS 12/04/15 08/17/17 Vit D3/Folic Acid/B2/B6/B12 1 tab PO DAILY@1700 12/04/15 08/17/17 [Folgard Tablet] Sertraline [Zoloft] 100 mg PO HS 05/08/16 08/17/17 Aspirin EC [Ecotrin Low Dose] 81 mg PO DAILY 08/17/17 08/17/17 Bisacodyl 10 mg PO DAILY PRN 08/17/17 08/17/17 Eye Scrub 1 applic OPHTHALMIC DAILY 08/17/17 08/17/17 Melatonin 5 mg PO HS 08/17/17 08/17/17 Mirabegron [Myrbetriq] 25 mg PO DAILY 08/17/17 08/17/17 Nitroglycerin Sl Tabs [Nitrostat] 0.4 mg SUBLINGUAL Q5M PRN 08/17/17 08/17/17 Pantoprazole [Protonix] 40 mg PO BID@07,16 08/17/17 08/17/17 Zinc Oxide [Desitin] 1 applic TOPICAL BID 08/17/17 08/17/17 Previous Rx's Medication Instructions Recorded Levofloxacin [Levaquin] 250 mg PO DAILY #5 tab 08/22/17 Levothyroxine Sodium [Synthroid] 100 mcg PO DAILY@0630 tab 08/22/17 Metoprolol Tartrate [Lopressor] 12.5 mg PO BID tab 08/22/17 Polyethylene Glycol 3350 [Miralax] 17 gm PO DAILY powd.pack 08/22/17 metroNIDAZOLE [Flagyl] 500 mg PO Q8HR #15 tab 08/22/17 rOPINIRole HCL [Requip] 0.25 mg PO HS tab 08/22/17 Allergies Allergy/AdvReac Type Severity Reaction Status Date / Time No Known Allergies Allergy Verified 09/19/17 06:34 Review of Systems ROS Statement: Those systems with pertinent positive or pertinent negative responses have been documented in the HPI. ROS Other: All systems not noted in ROS Statement are negative. 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 History of Any Multi-Drug Resistant Organisms: None Reported Past Surgical History: Appendectomy, Tonsillectomy Additional Past Surgical History / Comment(s): radiation seeds 2009, spot of skin cancer removed from head 10/2015 Past Anesthesia/Blood Transfusion Reactions: No Reported Reaction Past Psychological History: Anxiety, Depression Smoking Status: Never smoker Past Alcohol Use History: None Reported Past Drug Use History: None Reported - Past Family History Father Family Medical History: GI Bleed Mother Family Medical History: Cancer Additional Family Medical History / Comment(s): unknown General Exam Limitations: no limitations General appearance: alert, in no apparent distress Head exam: Present: atraumatic, normocephalic, normal inspection Eye exam: Present: normal appearance, PERRL, EOMI. Absent: scleral icterus, conjunctival injection, periorbital swelling ENT exam: Present: normal exam, mucous membranes moist Neck exam: Present: normal inspection. Absent: tenderness, meningismus, lymphadenopathy Respiratory exam: Present: normal lung sounds bilaterally. Absent: respiratory distress, wheezes, rales, rhonchi, stridor Cardiovascular Exam: Present: regular rate, normal rhythm, normal heart sounds. Absent: systolic murmur, diastolic murmur, rubs, gallop, clicks GI/Abdominal exam: Present: soft, normal bowel sounds. Absent: distended, tenderness, guarding, rebound, rigid Extremities exam: Present: normal inspection, full ROM, normal capillary refill. Absent: tenderness, pedal edema, joint swelling, calf tenderness Back exam: Present: normal inspection Neurological exam: Present: alert, oriented X3, CN II-XII intact Psychiatric exam: Present: normal affect, normal mood Skin exam: Present: warm, dry, intact, normal color. Absent: rash Course Vital Signs 09/19/17 09/19/17 09/19/17 04:29 04:53 05:28 Temperature 97.7 F Pulse Rate 71 68 79 Respiratory 18 18 18 Rate Blood Pressure 139/72 139/66 139/66 O2 Sat by Pulse 96 97 Oximetry 09/19/17 06:34 Temperature 97.7 F Pulse Rate 74 Respiratory 18 Rate Blood Pressure 129/89 O2 Sat by Pulse 97 Oximetry Medical Decision Making - Medical Decision Making 87 male the ER for status post fall, patient has CT brain C-spine face negative for traumatic injury. Patient can be discharged home - Radiology Data Radiology results: report reviewed (CT brain C-spine face are negative for traumatic injury), image reviewed Disposition Clinical Impression: Fall, Head injury Disposition: HOME SELF-CARE Condition: Good Instructions: Fall Prevention for Older Adults (ED) Is patient prescribed a controlled substance at d/c from ED?: No Referrals: Arsalan Lopez MD [Primary Care Provider] - 1-2 days
[2017-09-19 06:35] VITALS: BP 129/89; PULSE 74
== END 2017-09-19 06:52 | disposition home or self-care (01) ==
LOC: EC 04:25
DX: S09.90XA Unspecified injury of head, initial encounter (principal); E78.5 Hyperlipidemia, unspecified; I10 Essential (primary) hypertension; E07.9 Disorder of thyroid, unspecified; F41.9 Anxiety disorder, unspecified; F32.9 Major depressive disorder, single episode, unspecified; Z85.46 Personal history of malignant neoplasm of prostate; Z85.828 Personal history of other malignant neoplasm of skin; Z98.890 Other specified postprocedural states; Z79.82 Long term (current) use of aspirin; Z79.899 Other long term (current) drug therapy; W01.190A Fall on same level from slipping, tripping and stumbling with subsequent striking against furniture, initial encounter; Y92.009 Unspecified place in unspecified non-institutional (private) residence as the place of occurrence of the external cause
CPT/HCPCS: 70450; 70486; 72125; 99284

== ENCOUNTER 2018-07-12 01:55 | Emergency (ER) | payer MEDICARE, BC ==
[2018-07-12 02:02] VITALS: PULSE 62; RESP 16; TEMP 98
--- NOTE | 2018-07-12 02:24 | XR ---
EXAM: XR Chest, 1 View CLINICAL HISTORY: ITS.REASON XR Reason: Pain TECHNIQUE: Frontal view of the chest. COMPARISON: Chest radiograph on 12/09/2015 FINDINGS: Hardware: None. Lungs/pleura: Elevation of the right hemidiaphragm. No focal consolidation. No pleural effusion or pneumothorax. Heart/mediastinum: Mild enlargement of the cardiac silhouette. Atherosclerotic changes of the aorta. Soft tissues: Unremarkable. Bones: No acute fracture. Degenerative changes of the acromioclavicular joints and spine. Scoliosis. Upper abdomen: Normal. IMPRESSION: No acute disease identified.
--- NOTE | 2018-07-12 02:42 | CT ---
EXAM: CT Head Without Intravenous Contrast CLINICAL HISTORY: ITS.REASON CT Reason: Pain TECHNIQUE: Axial computed tomography images of the head/brain without intravenous contrast. CTDI is 45.2 mGy and DLP is 1046 mGy-cm. This CT exam was performed using one or more of the following dose reduction techniques: automated exposure control, adjustment of the mA and/or kV according to patient size, and/or use of iterative reconstruction technique. COMPARISON: None FINDINGS: Brain: No acute infarct or hemorrhage identified. No extra-axial fluid collection. No mass effect or midline shift. Scattered areas of hypoattenuation in the supratentorial white matter likely represent chronic small vessel ischemic changes. Ventricles and sulci: Prominence of the ventricles and sulci is likely secondary to cerebral volume loss. Skull: Degenerative changes of the right temporomandibular joint.. No bony lesion or fracture. Subcutaneous tissues: Mild left parietal soft tissue hematoma. Sinuses: Mild mucosal thickening in the ethmoid air cells. Orbits: Grossly unremarkable. Other: Atherosclerotic calcifications in the intracranial vasculature. Mild cerumen in the right external auditory canal. IMPRESSION: 1. No acute intracranial abnormality. 2. Mild left parietal soft tissue hematoma. No acute fracture. 3. Chronic small vessel ischemic changes and cerebral volume loss. EXAM: CT Cervical Spine Without Intravenous Contrast CLINICAL HISTORY: ITS.REASON CT Reason: Pain TECHNIQUE: Axial computed tomography images of the cervical spine without intravenous contrast. CTDI is 12.8 mGy and DLP is 353.1 mGy-cm. This CT exam was performed using one or more of the following dose reduction techniques: automated exposure control, adjustment of the mA and/or kV according to patient size, and/or use of iterative reconstruction technique. COMPARISON: None FINDINGS: Bones: Osteopenia. No acute fracture or bony lesion. Ossification in the nuchal ligament is likely related to remote trauma. Disc spaces: Degenerative changes of the spine. Degenerative mild retrolisthesis of C2 on C3 and C5 on C6. Degenerative mild anterolisthesis of C4 on C5. Soft tissues: Normal. Other: Cerumen in the right external auditory canal. Hypodense nodule versus artifact in the right thyroid lobe which could be further evaluated with nonemergent dedicated ultrasound if clinically indicated. Atherosclerotic changes of the vasculature. IMPRESSION: No acute traumatic abnormality.
--- NOTE | 2018-07-12 03:30 | ED ---
General Adult HPI - General Chief complaint: Head Injury Stated complaint: Fall Time Seen by Provider: 07/12/18 02:00 Source: patient, EMS, RN notes reviewed, old records reviewed Mode of arrival: EMS Limitations: no limitations - History of Present Illness Initial comments: 79-year-old male patient past medical history of pancreatitis, presents to ED after sustaining a fall. Patient reports that he got out of bed and slipped, patient reports that he fell backwards and hit his head on the bedside table. Patient denies having of consciousness. Patient denies any use of blood thinners. Patient denies any pain. Patient does have a small hematoma on his occipital lobe. Patient denies other complaints. Denies any abdominal pain chest pain shortness of breath. Systemic: Pt denies fatigue, myalgia, fever/chills, rash. Pt denies weakness, night sweats, weight loss. Neuro: Pt denies headache, visual disturbances, syncope or pre-syncope. HEENT: Pt denies ocular discharge or irritation, otalgia, rhinorrhea, pharyngitis or notable lymphadenopathy. Cardiopulmonary: Pt denies chest pain, SOB, heart palpitations, dyspnea on exertion. Abdominal/GI: Pt denies abdominal pain, n/v/d. : Pt denies dysuria, burning w/ urination, frequency/urgency. Denies new onset urinary or bowel incontinence. MSK: Pt denies myalgia, loss of strength or function in extremities. Neuro: Pt denies new onset weakness, paresthesias. - Related Data Home Medications Medication Instructions Recorded Confirmed Ascorbic Acid [Vitamin C] 500 mg PO DAILY 12/04/15 08/17/17 Carbidopa-Levodopa 25-100 mg 1 tab PO TID@08,14,20 12/04/15 08/17/17 [Sinemet 25-100 mg] Finasteride [Proscar] 5 mg PO HS 12/04/15 08/17/17 Pravastatin Sodium [Pravachol] 40 mg PO HS 12/04/15 08/17/17 Vit D3/Folic Acid/B2/B6/B12 1 tab PO DAILY@1700 12/04/15 08/17/17 [Folgard Tablet] Sertraline [Zoloft] 100 mg PO HS 05/08/16 08/17/17 Aspirin EC [Ecotrin Low Dose] 81 mg PO DAILY 08/17/17 08/17/17 Bisacodyl 10 mg PO DAILY PRN 08/17/17 08/17/17 Eye Scrub 1 applic OPHTHALMIC DAILY 08/17/17 08/17/17 Melatonin 5 mg PO HS 08/17/17 08/17/17 Mirabegron [Myrbetriq] 25 mg PO DAILY 08/17/17 08/17/17 Nitroglycerin Sl Tabs [Nitrostat] 0.4 mg SUBLINGUAL Q5M PRN 08/17/17 08/17/17 Pantoprazole [Protonix] 40 mg PO BID@07,16 08/17/17 08/17/17 Zinc Oxide [Desitin] 1 applic TOPICAL BID 08/17/17 08/17/17 Previous Rx's Medication Instructions Recorded Levofloxacin [Levaquin] 250 mg PO DAILY #5 tab 08/22/17 Levothyroxine Sodium [Synthroid] 100 mcg PO DAILY@0630 tab 08/22/17 Metoprolol Tartrate [Lopressor] 12.5 mg PO BID tab 08/22/17 Polyethylene Glycol 3350 [Miralax] 17 gm PO DAILY powd.pack 08/22/17 metroNIDAZOLE [Flagyl] 500 mg PO Q8HR #15 tab 08/22/17 rOPINIRole HCL [Requip] 0.25 mg PO HS tab 08/22/17 Allergies Allergy/AdvReac Type Severity Reaction Status Date / Time No Known Allergies Allergy Verified 07/12/18 02:02 Review of Systems ROS Statement: Those systems with pertinent positive or pertinent negative responses have been documented in the HPI. ROS Other: All systems not noted in ROS Statement are negative. 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 and unsteadiness History of Any Multi-Drug Resistant Organisms: None Reported Past Surgical History: Appendectomy, Tonsillectomy Additional Past Surgical History / Comment(s): radiation seeds 2009, spot of skin cancer removed from head 10/2015 Past Anesthesia/Blood Transfusion Reactions: No Reported Reaction Past Psychological History: Anxiety, Depression Smoking Status: Never smoker Past Alcohol Use History: None Reported Past Drug Use History: None Reported - Past Family History Father Family Medical History: GI Bleed Mother Family Medical History: Cancer Additional Family Medical History / Comment(s): unknown General Exam - General Exam Comments Initial Comments: Constitutional: NAD, AOX3, Pt has pleasant affect. HEENT: NC/AT, trachea midline, neck supple, no lymphadenopathy. Posterior pharynx non erythematous, without exudates. External ears appear normal, without discharge. Mucous membranes moist. Eyes PERRLA, EOM intact. There is no scleral icterus. No pallor noted. Cardiopulmonary: RRR, no murmurs, rubs or gallops, no JVD noted. Lungs CTAB in anterior and posterior faria. No peripheral edema. Abdominal exam: Abdomen soft and non-distended. Abdomen non-tender to palpation in all 4 quadrants. Bowel sounds active in LLQ. No hepatosplenomegaly. No ecchymosis Neuro: CN II-XII intact. No nuchal rigidity. No raccoon eyes, no farr sign. No hemotympanum. MSK: 1x1 hematoma noted on occiptal lobe. No laceration. No posterior calf tenderness bilaterally, homans sign negative bilaterally. Posterior tibialis and radial pulse +2 bilaterally. Sensation intact in upper and lower extremities. Full active ROM in upper and lower extremities, 5/5 stregnth. Limitations: no limitations Course Vital Signs 07/12/18 01:56 Temperature 98 F Pulse Rate 62 Respiratory 16 Rate Blood Pressure 137/82 O2 Sat by Pulse 100 Oximetry Medical Decision Making - Medical Decision Making 79-year-old male patient past medical history of pancreatitis, presents to ED after sustaining a fall. Patient reports that he got out of bed and slipped, patient reports that he fell backwards and hit his head on the bedside table. Patient denies having of consciousness. Patient denies any use of blood thinners. Patient denies any pain. Patient does have a small hematoma on his occipital lobe. Patient denies other complaints. Denies any abdominal pain chest pain shortness of breath. Patient will signs stable, afebrile. Physical exam displayed normal neurologic exam, 1x1 hematoma noted on occiptal lobe. No laceration. CT brain without contrast displayed no acute intracranial abnormality. Mild soft tissue hematoma. CT cervical did not display acute pathology. Chest xray did not display acute pathology. EKG not concerning for acute ischemia. They states that tetanus is up-to-date within last 5 years. Patient to be discharged. Follow with pcp in 1-2 days. Case discussed with Dr. Griffith - EKG Data -: EKG Interpreted by Me (and dr colmenares) EKG Comments: 1) Ventricular rate 62, painful to 2, QRS 16, QT/QTc 462/468. Normal sinus rhythm, no concern for for acute ischemia. 2) Ventricular rate 69, painful to 18, QRS 110, QT/QTc 466/409. No concern for acute ischemia. Disposition Clinical Impression: Fall Disposition: HOME SELF-CARE Condition: Stable Instructions (If sedation given, give patient instructions): Fall Prevention for Older Adults (ED) Additional Instructions: Patient to adhere to previously discussed treatment plan and will take medication(s) as directed. Patient to follow up with PCP in 1-2 days. Patient to return to ED if symptoms do not improve. Is patient prescribed a controlled substance at d/c from ED?: No Referrals: Arsalan Lopez MD [Primary Care Provider] - 1-2 days
[2018-07-12 03:45] VITALS: BP 142/73
== END 2018-07-12 03:44 | disposition home or self-care (01) ==
LOC: EC 01:55
DX: S00.03XA Contusion of scalp, initial encounter (principal); E78.5 Hyperlipidemia, unspecified; I10 Essential (primary) hypertension; F32.9 Major depressive disorder, single episode, unspecified; F41.9 Anxiety disorder, unspecified; Z79.82 Long term (current) use of aspirin; Z79.899 Other long term (current) drug therapy; Z85.46 Personal history of malignant neoplasm of prostate; Z85.828 Personal history of other malignant neoplasm of skin; Z92.3 Personal history of irradiation; Z86.69 Personal history of other diseases of the nervous system and sense organs; Z87.19 Personal history of other diseases of the digestive system; Z98.890 Other specified postprocedural states; W01.190A Fall on same level from slipping, tripping and stumbling with subsequent striking against furniture, initial encounter; Y93.89 Activity, other specified; Y92.009 Unspecified place in unspecified non-institutional (private) residence as the place of occurrence of the external cause
CPT/HCPCS: 70450; 71045; 72125; 93005; 99284

== ENCOUNTER → 2018-07-25 | Outpatient (CLI) | payer MEDICARE, BC ==
--- NOTE | 2018-07-25 17:33 | XR ---
PROCEDURE: XR lumbar spine - 3V DATE AND TIME: 07/25/2018 5:20 PM CLINICAL INDICATION: [facility]; M79.604 PAIN IN RT LEG TECHNIQUE: Department protocol COMPARISON: None FINDINGS: There is levocurvature of the lumbar spine, apex at the L2-3 level. Long-standing ossification of the spine is demonstrated, particularly involving the the anterior colu mn, suggesting ankylosing spondylitis. There is no evidence of fracture. No evidence of malalignment. No acute soft tissue findings. IMPRESSION: No definite acute radiographic process.
--- NOTE | 2018-07-25 17:37 | XR ---
PROCEDURE: XR Hip RT and AP Pelvis - 3V DATE AND TIME: 07/25/2018 5:21 PM CLINICAL INDICATION: [facility]; M79.604 PAIN IN RT LEG TECHNIQUE: Department protocol COMPARISON: None FINDINGS: There is no fracture or malalignment. 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 No acute skeletal lesions. The soft tissues are clear for acute findings. IMPRESSION: NO ACUTE PROCESS.
== END | disposition home or self-care (01) ==
LOC: RADXRMAIN 16:46
PROVIDERS: ATTEND Internal Medicine
DX: M79.604 Pain in right leg (principal)
CPT/HCPCS: 72100; 73502

== ENCOUNTER 2018-07-27 12:01 | Inpatient (IN) | payer MEDICARE, BC ==
[2018-07-27] MEDS ORDERED: SODIUM CHLORIDE 0.9% 1,000 ML IV STA (12:31)
[2018-07-27] MEDS ORDERED: MORPHINE SULFATE 4 MG/ML SYRINGE IV STA (12:31)
--- NOTE | 2018-07-27 12:33 | ED ---
Fall HPI - General Chief Complaint: Extremity Problem,Nontraumatic Stated Complaint: Leg and neck pain Time Seen by Provider: 07/27/18 12:05 Source: patient, EMS, RN notes reviewed, old records reviewed, Caregiver Mode of arrival: EMS - History of Present Illness Initial Comments: This is an 79-year-old male, poor strain secondary to presumably age and underlying medical conditions. Patient coming in from what he states is a fall that happened last Tuesday. Continued of neck pain leg pain had headaches. Patient has been evaluated prior to fall with no obvious findings. Patient states the pain is discontinued. Patient denies any other complaints of chest pain stress with abdominal pain no nausea vomiting or diarrhea no fevers. No recent change in medications. 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 [employer] (3) Fall Witnessed: yes, by family Place Fall Occurred: long-term/SNF Loss of Consciousness: none Prolonged Down Time?: no Symptoms Prior to Fall: none Location: head, back, pelvis Severity: moderate Severity scale (1-10): 4 Quality: aching Context: tripped/slipped Associated Symptoms: denies - Related Data Home Medications Medication Instructions Recorded Confirmed Ascorbic Acid [Vitamin C] 500 mg PO DAILY@1400 12/04/15 07/27/18 Carbidopa-Levodopa 25-100 mg 1 tab PO TID@0800,1400,199912/04/15 07/27/18 [Sinemet 25-100 mg] Finasteride [Proscar] 5 mg PO HS 12/04/15 07/27/18 Pravastatin Sodium [Pravachol] 40 mg PO HS 12/04/15 07/27/18 Sertraline [Zoloft] 150 mg PO HS 05/08/16 07/27/18 Aspirin EC [Ecotrin Low Dose] 81 mg PO DAILY 08/17/17 07/27/18 Melatonin 5 mg PO HS 08/17/17 07/27/18 Nitroglycerin Sl Tabs [Nitrostat] 0.4 mg SUBLINGUAL Q5M PRN 08/17/17 07/27/18 Pantoprazole [Protonix] 40 mg PO BID@0700,1600 08/17/17 07/27/18 Acetaminophen [Tylenol Arthritis] 650 mg PO Q4H PRN 07/27/18 07/27/18 Fluticasone Nasal [place] [Flonase 1 spray EA NOSTRIL BID PRN 07/27/18 07/27/18 Nasal [place]] Folic Acid 1 mg PO DAILY 07/27/18 07/27/18 Loratadine [Claritin] 10 mg PO DAILY 07/27/18 07/27/18 Metoprolol Tartrate [Lopressor] 12.5 mg PO BID 07/27/18 07/27/18 Nystatin 100,000Unit/gm Cream 1 applic TOPICAL BID PRN 07/27/18 07/27/18 [Mycostatin Cream] Polyethylene Glycol 3350 [Miralax] 17 gm PO DAILY PRN 07/27/18 07/27/18 rOPINIRole HCL 0.5 mg PO HS 07/27/18 07/27/18 Previous Rx's Medication Instructions Recorded Levothyroxine Sodium [Synthroid] 100 mcg PO DAILY@0630 tab 08/22/17 Allergies Allergy/AdvReac Type Severity Reaction Status Date / Time No Known Allergies Allergy Verified 07/27/18 13:36 Review of Systems ROS Statement: Those systems with pertinent positive or pertinent negative responses have been documented in the HPI. ROS Other: All systems not noted in ROS Statement are negative. 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 and unsteadiness History of Any Multi-Drug Resistant Organisms: None Reported Past Surgical History: Appendectomy, Tonsillectomy Additional Past Surgical History / Comment(s): radiation seeds 2009, spot of skin cancer removed from head 10/2015 Past Anesthesia/Blood Transfusion Reactions: No Reported Reaction Past Psychological History: Anxiety, Depression Smoking Status: Never smoker Past Alcohol Use History: None Reported Past Drug Use History: None Reported - Past Family History Father Family Medical History: GI Bleed Mother Family Medical History: Cancer Additional Family Medical History / Comment(s): unknown General Exam Limitations: no limitations General appearance: alert, in no apparent distress Head exam: Present: atraumatic, normocephalic, normal inspection Eye exam: Present: normal appearance, PERRL, EOMI. Absent: scleral icterus, conjunctival injection, periorbital swelling ENT exam: Present: normal exam, mucous membranes moist Neck exam: Present: normal inspection. Absent: tenderness, meningismus, ly mphadenopathy Respiratory exam: Present: normal lung sounds bilaterally. Absent: respiratory distress, wheezes, rales, rhonchi, stridor Cardiovascular Exam: Present: regular rate, normal rhythm, normal heart sounds. Absent: systolic murmur, diastolic murmur, rubs, gallop, clicks GI/Abdominal exam: Present: soft, normal bowel sounds. Absent: distended, tenderness, guarding, rebound, rigid Extremities exam: Present: normal inspection, full ROM, normal capillary refill. Absent: tenderness, pedal edema, joint swelling, calf tenderness Back exam: Present: normal inspection Neurological exam: Present: alert, oriented X3, CN II-XII intact Psychiatric exam: Present: normal affect, normal mood Skin exam: Present: warm, dry, intact, normal color. Absent: rash Course Vital Signs 07/27/18 07/27/18 07/27/18 12:10 15:00 15:30 Temperature 98.2 F Pulse Rate 70 72 78 Respiratory 18 24 22 Rate Blood Pressure 148/99 155/85 160/94 O2 Sat by Pulse 100 99 97 Oximetry 07/27/18 16:00 Temperature Pulse Rate 75 Respiratory 22 Rate Blood Pressure 157/82 O2 Sat by Pulse 96 Oximetry - Reevaluation(s) Reevaluation #1: 07/27/18 14:10 Medical record is reviewed Reevaluation #2: 07/27/18 14:10 Patient does have pain control Medical Decision Making - Medical Decision Making 79 female the ER status post fall. Does have positive UTI with multiple recent falls and weakness. Will not for hydration and antibiotics - Lab Data Result diagrams: 07/27/18 13:07 07/27/18 13:07 Lab Results 07/27/18 07/27/18 07/27/18 Range/Units 13:07 13:07 13:07 WBC 10.5 (3.8-10.6) k/uL RBC 3.17 L (4.30-5.90) m/uL Hgb 10.4 L (13.0-17.5) gm/dL Hct 30.4 L (39.0-53.0) % MCV 95.8 (80.0-100.0) fL MCH 32.8 (25.0-35.0) pg MCHC 34.3 (31.0-37.0) g/dL RDW 14.2 (11.5-15.5) % Plt Count 213 (150-450) k/uL Neutrophils % 79 % Lymphocytes % 11 % Monocytes % 6 % Eosinophils % 2 % Basophils % 1 % Neutrophils # 8.2 H (1.3-7.7) k/uL Lymphocytes # 1.2 (1.0-4.8) k/uL Monocytes # 0.7 (0-1.0) k/uL Eosinophils # 0.2 (0-0.7) k/uL Basophils # 0.1 (0-0.2) k/uL PT 9.8 (9.0-12.0) sec INR 0.9 (<1.2) APTT 26.3 (22.0-30.0) sec Sodium 138 (137-145) mmol/L Potassium 3.9 (3.5-5.1) mmol/L Chloride 105 (98-107) mmol/L Carbon Dioxide 24 (22-30) mmol/L Anion Gap 9 mmol/L BUN 31 H (9-20) mg/dL Creatinine 1.25 (0.66-1.25) mg/dL Est GFR (CKD-EPI)AfAm 60 (>60 ml/min/1.73 sqM) Est GFR (CKD-EPI)NonAf 51 (>60 ml/min/1.73 sqM) Glucose 81 (74-99) mg/dL Calcium 8.9 (8.4-10.2) mg/dL Phosphorus 3.0 (2.5-4.5) mg/dL Magnesium 1.6 (1.6-2.3) mg/dL Total Bilirubin 0.4 (0.2-1.3) mg/dL AST 15 L (17-59) U/L ALT 19 L (21-72) U/L Alkaline Phosphatase 77 (38-126) U/L Troponin I (0.000-0.034) ng/mL Total Protein 6.6 (6.3-8.2) g/dL Albumin 3.7 (3.5-5.0) g/dL Urine Color Urine Appearance (Clear) Urine pH (5.0-8.0) Ur Specific [place] (1.001-1.035) Urine Protein (Negative) Urine Glucose (UA) (Negative) Urine Ketones (Negative) Urine Blood (Negative) Urine Nitrite (Negative) Urine Bilirubin (Negative) Urine Urobilinogen (<2.0) mg/dL Ur Leukocyte Esterase (Negative) Urine WBC (0-5) /hpf Urine WBC Clumps (None) /hpf Ur Squamous Epith Cells (0-4) /hpf Urine Bacteria (None) /hpf Urine Mucus (None) /hpf Urine Yeast (Budding) (None) /hpf 07/27/18 07/27/18 Range/Units 13:07 14:30 WBC (3.8-10.6) k/uL RBC (4.30-5.90) m/uL Hgb (13.0-17.5) gm/dL Hct (39.0-53.0) % MCV (80.0-100.0) fL MCH (25.0-35.0) pg MCHC (31.0-37.0) g/dL RDW (11.5-15.5) % Plt Count (150-450) k/uL Neutrophils % % Lymphocytes % % Monocytes % % Eosinophils % % Basophils % % Neutrophils # (1.3-7.7) k/uL Lymphocytes # (1.0-4.8) k/uL Monocytes # (0-1.0) k/uL Eosinophils # (0-0.7) k/uL Basophils # (0-0.2) k/uL PT (9.0-12.0) sec INR (<1.2) APTT (22.0-30.0) sec Sodium (137-145) mmol/L Potassium (3.5-5.1) mmol/L Chloride (98-107) mmol/L Carbon Dioxide (22-30) mmol/L Anion Gap mmol/L BUN (9-20) mg/dL Creatinine (0.66-1.25) mg/dL Est GFR (CKD-EPI)AfAm (>60 ml/min/1.73 sqM) Est GFR (CKD-EPI)NonAf (>60 ml/min/1.73 sqM) Glucose (74-99) mg/dL Calcium (8.4-10.2) mg/dL Phosphorus (2.5-4.5) mg/dL Magnesium (1.6-2.3) mg/dL Total Bilirubin (0.2-1.3) mg/dL AST (17-59) U/L ALT (21-72) U/L Alkaline Phosphatase (38-126) U/L Troponin I <0.012 (0.000-0.034) ng/mL Total Protein (6.3-8.2) g/dL Albumin (3.5-5.0) g/dL Urine Color Light Yellow Urine Appearance Cloudy (Clear) Urine pH 6.5 (5.0-8.0) Ur Specific [place] 1.010 (1.001-1.035) Urine Protein Trace H (Negative) Urine Glucose (UA) Negative (Negative) Urine Ketones Negative (Negative) Urine Blood Trace H (Negative) Urine Nitrite Negative (Negative) Urine Bilirubin Negative (Negative) Urine Urobilinogen <2.0 (<2.0) mg/dL Ur Leukocyte Esterase Large H (Negative) Urine WBC >182 H (0-5) /hpf Urine WBC Clumps Moderate H (None) /hpf Ur Squamous Epith Cells 1 (0-4) /hpf Urine Bacteria Occasional H (None) /hpf Urine Mucus Rare H (None) /hpf Urine Yeast (Budding) Occasional H (None) /hpf - EKG Data -: EKG Interpreted by Me (EKG shows sinus rhythm rate of 70, LA 186, QRS 06, QTc 488) - Radiology Data Radiology results: report reviewed (CT brain C-spine chest x-ray and pelvis x- ray, negative for traumatic injury, ultrasound lower extremity negative for DVT), image reviewed Disposition Clinical Impression: Weakness, UTI (urinary tract infection) Disposition: ADMITTED IP TO THIS HOSP Condition: Fair Is patient prescribed a controlled substance at d/c from ED?: No Referrals: Arsalan Lopez MD [Primary Care Provider] - 1-2 days
[2018-07-27 13:36] LABS: Basophils # (A) 0.1 k/uL (0-0.2); Basophils % (A) 1 %; Eosinophils # (A) 0.2 k/uL (0-0.7); Eosinophils % (A) 2 %; HCT 30.4 % (39.0-53.0); HGB 10.4 gm/dL (13.0-17.5); Lymphocytes # (A) 1.2 k/uL (1.0-4.8); Lymphocytes % (A) 11 %; MCH 32.8 pg (25.0-35.0); MCHC 34.3 g/dL (31.0-37.0); MCV 95.8 fL (80.0-100.0); Mean Platelet Volume 6.8; Monocytes # (A) 0.7 k/uL (0-1.0); Monocytes % (A) 6 %; Neutrophils # (A) 8.2 k/uL (1.3-7.7); Neutrophils % (A) 79 %; Platelet Count 213 k/uL (150-450); RBC 3.17 m/uL (4.30-5.90); RDW 14.2 % (11.5-15.5); WBC 10.5 k/uL (3.8-10.6)
[2018-07-27 13:41] LABS: INR 0.9 (<1.2); Partial Thromboplastin Time 26.3 sec (22.0-30.0); Prothrombin Time 9.8 sec (9.0-12.0)
[2018-07-27 13:42] LABS: Albumin 3.7 g/dL (3.5-5.0); Calcium 8.9 mg/dL (8.4-10.2); Magnesium 1.6 mg/dL (1.6-2.3); Potassium 3.9 mmol/L (3.5-5.1); Total Bilirubin 0.4 mg/dL (0.2-1.3); Total Protein 6.6 g/dL (6.3-8.2)
--- NOTE | 2018-07-27 14:03 | CT ---
EXAMINATION TYPE: CT brain jose ramon peoples con DATE OF EXAM: 07/27/2018 COMPARISON: 07/12/2018 HISTORY: Left sided facial/neck pain and leg weakness CT DLP: 1353.[address] of the brain was performed. The ventricles, basal cisterns and sulci overlying the cerebral convexities demonstrate moderate enla rgement. There is no evidence for intracranial hemorrhage or sulcal effacement. There is decreased attenuatio n about the periventricular white matter and deep white matter of both cerebral hemispheres, compatib le with chronic small vessel ischemia. No mass effects are seen. If symptoms persist consider MRI. Osseous calvarium is intact. IMPRESSION: 1. Age related atrophic and chronic small vessel ischemic change without acute intracranial process seen at this time. CT Cervical Spine: Unenhanced CT of the cervical spine was performed with bone and soft tissue window settings submitted . Coronal and sagittal reconstruction is obtained. There is normal alignment and prevertebral soft tissues. No evidence for acute cervical fracture . Retrolisthesis of C2 on C3 of 3 mm prior study Scattered degenerative disc disease and spondylosis. B iapical scarring. IMPRESSION: 1. No evidence for acute fracture or subluxation of the cervical spine.
--- NOTE | 2018-07-27 14:03 | XR ---
EXAMINATION TYPE: XR pelvis AP view DATE OF EXAM: 07/27/2018 CLINICAL HISTORY: Vomiting and pain. TECHNIQUE: A single AP view of the pelvis is obtained. COMPARISON: None. FINDINGS: There is no acute fracture/dislocation evident in the pelvis. The sacroiliac joints appea r symmetric and unremarkable. Mild axial joint space loss and acetabular spurring in both hips is pre sent. Numerous brachytherapy seeds overlie the pubic symphysis . IMPRESSION: As above.
--- NOTE | 2018-07-27 14:04 | XR ---
EXAMINATION TYPE: XR chest 1V DATE OF EXAM: 07/27/2018 HISTORY: Shortness of breath. COMPARISON: 07/12/2018 TECHNIQUE: Single view of the chest is submitted. FINDINGS: Demonstrated are scattered senescent parenchymal change. There is no evidence for focal infiltrate. The heart is stable. Hilar and mediastinal structures are within normal limits. Degenerative changes are seen of the dorsal spine. IMPRESSION: 1. Chronic changes without evidence for acute pulmonary disease.
--- NOTE | 2018-07-27 14:43 | US ---
EXAMINATION TYPE: US venous doppler duplex LE RT DATE OF EXAM: 07/27/2018 2:29 PM COMPARISON: US CLINICAL HISTORY: Pain. EC patient with severe right leg pain SIDE PERFORMED: Right TECHNIQUE: The lower extremity deep venous system is examined utilizing real time linear array sonog latoya with graded compression, doppler sonography and color-flow sonography. VESSELS IMAGED: Common Femoral Vein Deep Femoral Vein Greater Saphenous Vein * Femoral Vein Popliteal Vein Small Saphenous Vein * Proximal Calf Veins (* superficial vessels) Right Leg: Negative for DVT IMPRESSION: No evidence for DVT at this time.
[2018-07-27 15:42] LABS: Appearance,Urine Cloudy (Clear); Bacteria,Urine Occasional /hpf; Bilirubin,Urine Negative (Negative); Blood,Urine Trace (Negative); Budding Yeast,Urine Occasional /hpf; Color,Urine Light Yellow; Glucose,Urine (UA) Negative (Negative); Ketones,Urine Negative (Negative); Leukocyte Esterase,Urine Large (Negative); Mucus,Urine Rare /hpf; Nitrite,Urine Negative (Negative); PH, Urine 6.5 (5.0-8.0); Protein,Urine Trace (Negative); Squamous Epithelial Cell,Urine 1 /hpf (0-4); Urobilinogen,Urine <2.0 mg/dL (<2.0); WBC,Urine >182 /hpf (0-5)
[2018-07-27] MEDS ORDERED: SODIUM CHLORIDE 0.9% 1,000 ML IV ONE (16:04)
[2018-07-27] MEDS ORDERED: POLYETHYLENE GLYCOL 3350 17 GM POWD.PACK PO PRN (19:00)
[2018-07-27] MEDS ORDERED: ACETAMINOPHEN TAB 325 MG TAB PO PRN (19:00)
[2018-07-27] MEDS ORDERED: NITROGLYCERIN SL TABS 0.4 MG TAB SUBLINGUAL PRN (19:00)
[2018-07-27] MEDS ORDERED: NYSTATIN 100,000UNIT/GM CREAM 30 GM TUBE TOPICAL PRN (19:00)
[2018-07-27] MEDS ORDERED: FLUTICASONE 50MCG/SPRAY NASAL 16GM EA NOSTRIL PRN (19:00)
[2018-07-27] MEDS: PRAVASTATIN SODIUM 40 MG TAB PO SCH (19:51)
[2018-07-27] MEDS: MELATONIN 5 MG TABLET PO SCH (19:51)
[2018-07-27] MEDS: METOPROLOL TARTRATE 12.5 MG TAB PO SCH (19:51)
[2018-07-27] MEDS: HEPARIN SODIUM,PORCINE 5,000 UNIT/ML 1 ML VIAL SQ SCH (19:52)
[2018-07-27] MEDS: CARBIDOPA-LEVODOPA 25-100 MG 1 EACH TAB PO SCH (19:52)
[2018-07-27] MEDS: SERTRALINE 100 MG TAB PO SCH (19:52)
[2018-07-27] MEDS: FINASTERIDE 5 MG TAB PO SCH (19:52)
[2018-07-27] MEDS: KETOROLAC 30 MG/ML 1 ML VIAL IVP PRN (19:52)
[2018-07-27] MEDS: SODIUM CHLORIDE 0.9% 1,000 ML IV SCH (20:19)
[2018-07-28] MEDS: KETOROLAC 30 MG/ML 1 ML VIAL IVP PRN ×2 (05:56→17:00)
[2018-07-28] MEDS: LEVOTHYROXINE 100 MCG TAB PO SCH (05:56)
[2018-07-28] MEDS: HEPARIN SODIUM,PORCINE 5,000 UNIT/ML 1 ML VIAL SQ SCH ×2 (09:02→21:08)
[2018-07-28] MEDS: PANTOPRAZOLE 40 MG TABLET PO SCH ×2 (09:02→17:05)
[2018-07-28] MEDS: METOPROLOL TARTRATE 12.5 MG TAB PO SCH ×2 (09:02→21:09)
[2018-07-28] MEDS: LORATADINE 10 MG TAB PO SCH (09:02)
[2018-07-28] MEDS: ASPIRIN 81 MG PO SCH (09:02)
[2018-07-28] MEDS: MORPHINE SULFATE 2 MG/ML SYRINGE IVP PRN ×3 (09:20→21:06)
[2018-07-28] MEDS ORDERED: POTASSIUM CHLORIDE ER 20 MEQ TAB.ER PO STA (10:38)
[2018-07-28] MEDS: CARBIDOPA-LEVODOPA 25-100 MG 1 EACH TAB PO SCH ×3 (11:12→21:09)
[2018-07-28] MEDS: SODIUM CHLORIDE 0.9% 1,000 ML IV SCH (11:25)
--- NOTE | 2018-07-28 12:33 | P.HPIM ---
History of Present Illness H&P Date: 07/28/18 Chief Complaint: Poor oral intake. This is an 87-year-old male patient of Dr. Lopez with past medical history of prostate cancer status post radiation seeds, hyperlipidemia, hypertension, hypothyroidism. Patient currently residing at [facility] and uses wheelchair to go in the community. Patient apparently had a fall last Tuesday but continued to have neck pain, leg pain and headaches. He did have lumbar spine x-rays that showed no definite acute process. Right hip and pelvis x-ray also showed no acute process. These were done on July [address] Lopez. Patient continued to have pain and he also states that he has not been eating or drinking for the past couple days as he has no appetite. Patient is known to has weakness on his right side and complaining of right hip pain down his leg. He had pelvic x-ray and CT of the head and cervical spine that showed no acute findings. Chest x-ray showed no acute cardiopulmonary process. Urinalysis was positive for urinary tract infection patient started on Rocephin and placed in the observation status. Consult has been added for orthopedics to evaluate right hip pain. It is noted the patient does have spurs at the acetabular in both hips. PT and OT consults have been requested. Urine cultures in progress. Patient states he plans to return home when he leaves the hospital. Review of Systems All systems: negative Constitutional: Reports fatigue, Reports poor appetite, Reports weakness, Denies chills, Denies fever Eyes: denies blurred vision, denies pain Ears, nose, mouth and throat: Denies dysphagia, Denies headache, Denies sore throat, Denies vertigo Cardiovascular: Denies chest pain, Denies dyspnea on exertion, Denies lightheade dness, Denies shortness of breath, Denies syncope Respiratory: Denies cough, Denies cough with sputum, Denies dyspnea, Denies excessive sputum, Denies hemoptysis, Denies home oxygen, Denies wheezing Gastrointestinal: Reports loss of appetite, Denies abdominal pain, Denies diarrhea, Denies nausea, Denies vomiting Genitourinary: Reports urinary hesitancy, Reports urinary retention, Denies dysuria Musculoskeletal: Reports frequent falls, Reports gait dysfunction, Reports muscle weakness, Denies myalgias Integumentary: Denies pruritus, Denies rash, Denies wounds Neurological: Denies aphasia, Denies change in mentation, Denies change in speech, Denies numbness, Denies seizures, Denies weakness Psychiatric: Denies anxiety, Denies depression Endocrine: Denies fatigue, Denies weight change 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 History of Any Multi-Drug Resistant Organisms: None Reported, MRSA Date of last positivie culture/infection: 06/19/18 MDRO Source:: urine Past Surgical History: Appendectomy, Tonsillectomy Additional Past Surgical History / Comment(s): radiation seeds 2009, spot of skin cancer removed from head 10/2015 Past Anesthesia/Blood Transfusion Reactions: No Reported Reaction Past Psychological History: Anxiety, Depression Additional Psychological History / Comment(s): [facility]. wheelchair on community ambulation,. No history of smoking. 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 He was stationed in [place]. He was in the [employer]. No animal exposures Smoking Status: Never smoker Past Alcohol Use History: None Reported Additional Past Alcohol Use History / Comment(s): Patient resides at [facility] and uses wheelchair in the community. No history of smoking. 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 He was stationed in [place]. He was in the [employer]. No animal exposures. Past Drug Use History: None Reported - Past Family History Father Family Medical History: GI Bleed Mother Family Medical History: Cancer Additional Family Medical History / Comment(s): unknown Medications and Allergies Home Medications Medication Instructions Recorded Confirmed Type Ascorbic Acid [Vitamin C] 500 mg PO DAILY@1400 12/04/15 07/27/18 History Carbidopa-Levodopa 25-100 mg 1 tab PO TID@0800,1400,2000 12/04/15 07/27/18 History [Sinemet 25-100 mg] Finasteride [Proscar] 5 mg PO HS 12/04/15 07/27/18 History Pravastatin Sodium [Pravachol] 40 mg PO HS 12/04/15 07/27/18 History Sertraline [Zoloft] 150 mg PO HS 05/08/16 07/27/18 History Aspirin EC [Ecotrin Low Dose] 81 mg PO DAILY 08/17/17 07/27/18 History Melatonin 5 mg PO HS 08/17/17 07/27/18 History Nitroglycerin Sl Tabs [Nitrostat] 0.4 mg SUBLINGUAL Q5M PRN 08/17/17 07/27/18 History Pantoprazole [Protonix] 40 mg PO BID@0700,1600 08/17/17 07/27/18 History Levothyroxine Sodium [Synthroid] 100 mcg PO DAILY@0630 tab 08/22/17 07/27/18 Rx Acetaminophen [Tylenol Arthritis] 650 mg PO Q4H PRN 07/27/18 07/27/18 History Fluticasone Nasal [place] [Flonase 1 spray EA NOSTRIL BID PRN 07/27/18 07/27/18 History Nasal [place]] Folic Acid 1 mg PO DAILY 07/27/18 07/27/18 History Loratadine [Claritin] 10 mg PO DAILY 07/27/18 07/27/18 History Metoprolol Tartrate [Lopressor] 12.5 mg PO BID 07/27/18 07/27/18 History Nystatin 100,000Unit/gm Cream 1 applic TOPICAL BID PRN 07/27/18 07/27/18 History [Mycostatin Cream] Polyethylene Glycol 3350 [Miralax] 17 gm PO DAILY PRN 07/27/18 07/27/18 History rOPINIRole HCL 0.5 mg PO HS 07/27/18 07/27/18 History Allergies Allergy/AdvReac Type Severity Reaction Status Date / Time No Known Allergies Allergy Verified 07/27/18 13:36 Physical Exam Vitals: Vital Signs Temp Pulse Pulse Resp BP BP Pulse Ox 07/28/18 04:48 98 F 59 L 17 113/60 95 07/27/18 21:08 98.8 F 76 16 141/69 92 L 07/27/18 18:18 97.9 F 76 18 179/84 97 07/27/18 16:37 98.9 F 07/27/18 16:00 75 22 157/82 96 07/27/18 15:30 78 22 160/94 97 07/27/18 15:00 72 24 155/85 99 07/27/18 12:10 98.2 F 70 18 148/99 100 Intake and Output 07/27/18 07/28/18 07/28/18 22:59 06:59 14:59 Other: Voiding Method Diaper Diaper Incontinent Incontinent # Voids 2 2 Gen: This is an 87-year-old male. He appears to be his stated age. He appears to be in no acute distress. Patient is resting in bed. HEENT: Head is atraumatic, normocephalic. Pupils equal, round. Sclerae is anicteric. NECK: Supple. No JVD. No lymphadenopathy. No thyromegaly. LUNGS: Clear to auscultation. No wheezes or rhonchi. No intercostal retractions. HEART: Regular rate and rhythm. Systolic murmur. ABDOMEN: Soft. Bowel sounds are present. No masses. No tenderness. EXTREMITIES: No pedal edema. Tenderness to the right hip area. Pain with range of motion of the right hip. NEUROLOGICAL: Patient is awake, alert and oriented x3. Cranial nerves 2 through 12 are grossly intact. Results CBC & Chem 7: 07/27/18 13:07 07/27/18 13:07 Labs: Abnormal Lab Results - Last 24 Hours (Table) 07/27/18 07/27/18 07/27/18 Range/Units 13:07 13:07 14:30 RBC 3.17 L (4.30-5.90) m/uL Hgb 10.4 L (13.0-17.5) gm/dL Hct 30.4 L (39.0-53.0) % Neutrophils # 8.2 H (1.3-7.7) k/uL BUN 31 H (9-20) mg/dL AST 15 L (17-59) U/L ALT 19 L (21-72) U/L Urine Protein Trace H (Negative) Urine Blood Trace H (Negative) Ur Leukocyte Esterase Large H (Negative) Urine WBC >182 H (0-5) /hpf Urine WBC Clumps Moderate H (None) /hpf Urine Bacteria Occasional H (None) /hpf Urine Mucus Rare H (None) /hpf Urine Yeast (Budding) Occasional H (None) /hpf Microbiology - Last 24 Hours (Table) 07/27/18 14:30 Urine Culture - Preliminary Urine,Voided Thrombosis Risk Factor Assmnt - DVT/VTE Prophylaxis DVT/VTE Prophylaxis: Pharmacologic Prophylaxis ordered - Choose All That Apply Any of the Below Risk Factors Present?: No Other Risk Factors: No Each Risk Factor Represents 3 Points: Age 75 years or older Thrombosis Risk Factor Assessment Total Risk Factor Score: 3 Thrombosis Risk Factor Assessment Level: Very Low Risk Assessment and Plan Plan: 1. Generalized weakness with dehydration and worsening Parkinson's with recent fall. IV fluids will be changed over to saline lock. 2. Right hip pain and tenderness since fall on Tuesday. X-rays are negative for acute fracture but noted to have spurs at the acetabulum bilaterally. Consult with orthopedics. Patient on Toradol for pain control or Tylenol as needed. PT and OT consults requested. 3. Acute urinary tract infection. Patient continued on Rocephin. Urine cu lture is in progress. 4. Parkinson's disease. Continue Sinemet 3 times daily. Continue Requip. 5. Hypertension, hypertensive cardiovascular disease. Continue Lopressor 12.5 mg twice daily 6. Hypothyroidism. Check TSH free T4. Continue levothyroxine. 7. Hyperlipidemia. Continue pravastatin. 8. Recurrent depression. Zoloft 150 mg at bedtime. 9. Gastroesophageal reflux disease. Protonix. 10. History of prostate cancer. Continue Proscar 5 mg at bedtime. 11. DVT prophylaxis. Patient places in observation status. Discharge plan: Return home most likely with homecare. PT and OT added. Consult with Dr. Martinez for possible inpatient rehab. Impression and plan of care have been directed as dictated by the signing physician. Rowena Lott nurse practitioner acting as scribe for signing physician.
[2018-07-28] MEDS: ASCORBIC ACID 500 MG TAB PO SCH (12:46)
[2018-07-28] MEDS: FOLIC ACID 1 MG TAB PO SCH (12:46)
[2018-07-28] MEDS: CYCLOBENZAPRINE 10 MG TAB PO PRN ×2 (13:47→21:09)
[2018-07-28 14:32] LABS: T4, Free (Free Thyroxine) 1.76 ng/dL (0.78-2.19)
[2018-07-28] MEDS: FINASTERIDE 5 MG TAB PO SCH (21:08)
[2018-07-28] MEDS: SERTRALINE 100 MG TAB PO SCH (21:08)
[2018-07-28] MEDS: PRAVASTATIN SODIUM 40 MG TAB PO SCH (21:09)
[2018-07-28] MEDS: MELATONIN 5 MG TABLET PO SCH (21:09)
[2018-07-29] MEDS: LEVOTHYROXINE 100 MCG TAB PO SCH (05:48)
[2018-07-29] MEDS: MORPHINE SULFATE 2 MG/ML SYRINGE IVP PRN ×2 (05:48→11:31)
[2018-07-29] MEDS: SODIUM CHLORIDE 0.9% 1,000 ML IV SCH (05:53)
[2018-07-29] MEDS: ASPIRIN 81 MG PO SCH (09:19)
[2018-07-29] MEDS: PANTOPRAZOLE 40 MG TABLET PO SCH ×2 (09:20→17:17)
[2018-07-29] MEDS: CYCLOBENZAPRINE 10 MG TAB PO PRN ×2 (09:20→17:18)
[2018-07-29] MEDS: HEPARIN SODIUM,PORCINE 5,000 UNIT/ML 1 ML VIAL SQ SCH ×2 (09:24→20:25)
[2018-07-29] MEDS: CARBIDOPA-LEVODOPA 25-100 MG 1 EACH TAB PO SCH ×3 (09:25→20:24)
[2018-07-29] MEDS: ASCORBIC ACID 500 MG TAB PO SCH (09:25)
[2018-07-29] MEDS: FOLIC ACID 1 MG TAB PO SCH (09:25)
[2018-07-29] MEDS: METOPROLOL TARTRATE 12.5 MG TAB PO SCH ×2 (09:26→20:24)
[2018-07-29] MEDS: LORATADINE 10 MG TAB PO SCH (09:26)
[2018-07-29] MEDS: KETOROLAC 30 MG/ML 1 ML VIAL IVP PRN ×2 (09:28→17:19)
--- NOTE | 2018-07-29 10:10 | P.CNOR ---
History of Present Illness - [facility] Consult date: 07/28/18 Requesting physician: Rowena Lott Consult reason: joint pain (Right hip pain and right lower extremity pain) History of present illness: Patient is a pleasant 87-year-old male who is seen and examined at bedside after consultation was placed for right hip pain after multiple falls. Patient is seen at the bedside with his daughter present. Patient has been nonambulatory o marvin the past year. He uses a wheelchair to aid in ambulation and will transfer from the wheelchair to bed or a chair. He has experienced multiple falls with transfers. He is not currently experiencing significant pain at his right hip. Over the past week and a half he has been experiencing significant spasm down the right lower extremity which is intermittent. He states when he starts it'll radiate down the entire right lower extremity. He is not currently experiencing any significant low back pain. He is unable to describe specific lower extremity radiculopathy bilaterally. He does have weakness with the right lower extremity and has difficulty lifting his right leg. He is able to lift his left lower extremity without difficulty. He has been following with his primary care provider in outpatient setting, Dr. Lopez. Patient's daughter states imaging was scheduled to perform performed next week at his abdomen and pelvis for further evaluation. It has been discussed the possibility of him being discharged to a rehabilitation facility. They may plan to consult with Dr. Martínez tellez to discuss inpatient rehab at [facility]. Patient states he would be willing to go to inpatient rehab but does not prefer to go to a separate independent rehabilitation facility. Patient is currently on medications for bilateral upper extremity tremor, unsteadiness, and dizziness but his daughter states he has not been diagnosed with Parkinson disease. She does state he is known to have brain changes. Patient normally resides at [facility]. Patient is being seen and examined by medicine is currently being treated for urinary tract infection is currently on Rocephin. Patient also has a history of prostate cancer status post radiation seeds and history of hyperlipidemia, hypertension, and hypothyroidism. 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. wheelchair on community ambulation,. No history of smoking. 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 He was stationed in [place]. He was in the [employer]. No animal exposures Smoking Status: Never smoker Past Alcohol Use History: None Reported Additional Past Alcohol Use History / Comment(s): Patient resides at [facility] and uses wheelchair in the community. No history of smoking. 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 He was stationed in [employer]. He was in the [employer]. No animal exposures. Past Drug Use History: None Reported - Past Family History Father Family Medical History: GI Bleed Mother Family Medical History: Cancer Additional Family Medical History / Comment(s): unknown Medications and Allergies Home Medications Medication Instructions Recorded Confirmed Type Ascorbic Acid [Vitamin C] 500 mg PO DAILY@1400 12/04/15 07/27/18 History Carbidopa-Levodopa 25-100 mg 1 tab PO TID@0800,1400,199912/04/15 07/27/18 History [Sinemet 25-100 mg] Finasteride [Proscar] 5 mg PO HS 12/04/15 07/27/18 History Pravastatin Sodium [Pravachol] 40 mg PO HS 12/04/15 07/27/18 History Sertraline [Zoloft] 150 mg PO HS 05/08/16 07/27/18 History Aspirin EC [Ecotrin Low Dose] 81 mg PO DAILY 08/17/17 07/27/18 History Melatonin 5 mg PO HS 08/17/17 07/27/18 History Nitroglycerin Sl Tabs [Nitrostat] 0.4 mg SUBLINGUAL Q5M PRN 08/17/17 07/27/18 History Pantoprazole [Protonix] 40 mg PO BID@0700,1600 08/17/17 07/27/18 History Levothyroxine Sodium [Synthroid] 100 mcg PO DAILY@0630 tab 08/22/17 07/27/18 Rx Acetaminophen [Tylenol Arthritis] 650 mg PO Q4H PRN 07/27/18 07/27/18 History Fluticasone Nasal [place] [Flonase 1 spray EA NOSTRIL BID PRN 07/27/18 07/27/18 History Nasal [place]] Folic Acid 1 mg PO DAILY 07/27/18 07/27/18 History Loratadine [Claritin] 10 mg PO DAILY 07/27/18 07/27/18 History Metoprolol Tartrate [Lopressor] 12.5 mg PO BID 07/27/18 07/27/18 History Nystatin 100,000Unit/gm Cream 1 applic TOPICAL BID PRN 07/27/18 07/27/18 History [Mycostatin Cream] Polyethylene Glycol 3350 [Miralax] 17 gm PO DAILY PRN 07/27/18 07/27/18 History rOPINIRole HCL 0.5 mg PO HS 07/27/18 07/27/18 History Allergies Allergy/AdvReac Type Severity Reaction Status Date / Time No Known Allergies Allergy Verified 07/27/18 13:36 Physical Examination Physical exam: Patient is awake, alert, and oriented 3 Vital signs stable Good chest excursion with deep inspiration and expiration Dorsiflexion, plantarflexion, and extensor hallucis longus positive sustained bilaterally Patient is able to lift left lower extremity off her leg independently without difficulty Significant difficulty with performing hip flexion and knee extension on the right Dorsiflexion on the right appears to exacerbate right lower extremity muscle spasm Intermittent spasms in the right lower extremity during physical examination at bedside Patellar reflex 2+ bilaterally No lower extremity hyperreflexia bilaterally Exacerbation of right lower extremity muscle spasm with Lasegue's test No signs or symptoms of DVT; no calf pain No pain with internal and external rotation of the hips bilaterally Neurovascularly intact Results Pertinent studies: X-ray of the pelvis taken on 07/27/2018: No evidence of acute fracture or dislocation within the pelvis; sacral iliac joints appear symmetrical an asymmetric; osteoarthritis of bilateral hip joint spacing greater on the left than the right - Labs Labs: Abnormal Lab Results - Last 24 Hours (Table) 07/27/18 07/27/18 07/27/18 Range/Units 13:07 13:07 14:30 RBC 3.17 L (4.30-5.90) m/uL Hgb 10.4 L (13.0-17.5) gm/dL Hct 30.4 L (39.0-53.0) % Neutrophils # 8.2 H (1.3-7.7) k/uL BUN 31 H (9-20) mg/dL AST 15 L (17-59) U/L ALT 19 L (21-72) U/L Urine Protein Trace H (Negative) Urine Blood Trace H (Negative) Ur Leukocyte Esterase Large H (Negative) Urine WBC >182 H (0-5) /hpf Urine WBC Clumps Moderate H (None) /hpf Urine Bacteria Occasional H (None) /hpf Urine Mucus Rare H (None) /hpf Urine Yeast (Budding) Occasional H (None) /hpf Microbiology - Last 24 Hours (Table) 07/27/18 14:30 Urine Culture - Preliminary Urine,Voided H & H 07/27/18 Range/Units 13:07 Hgb 10.4 L (13.0-17.5) gm/dL Hct 30.4 L (39.0-53.0) % Coagulation 07/27/18 Range/Units 13:07 INR 0.9 (<1.2) Result Diagrams: 07/27/18 13:07 07/27/18 13:07 Assessment and Plan Assessment: Assessment: Right lower extremity leg pain Muscle spasms in the right lower extremity Osteoarthritis bilateral hip joint spacing History of multiple falls Nonambulatory over the past year Right lower extremity weakness Urinary tract infection History of prostate cancer status post radiation seeds History of hyperlipidemia, hypertension, and hypothyroidism (1) Muscle spasm of right lower extremity Current Visit: Yes Status: Acute Code(s): M62.838 - OTHER MUSCLE SPASM SNOMED Code(s): 73198473 (2) Right leg pain Current Visit: Yes Status: Acute Code(s): M79.604 - PAIN IN RIGHT LEG SNOMED Code(s): 332783841 (3) Right leg weakness Current Visit: Yes Status: Acute Code(s): R29.898 - OTH SYMPTOMS AND SIGNS INVOLVING THE MUSCULOSKELETAL SYSTEM SNOMED Code(s): 326911314 (4) Osteoarthritis of hips, bilateral Current Visit: Yes Status: Acute Code(s): M16.0 - BILATERAL PRIMARY OSTEOARTHRITIS OF HIP SNOMED Code(s): 728994213 (5) Multiple falls Current Visit: Yes Status: Acute Code(s): R29.6 - REPEATED FALLS SNOMED Code(s): 337758343 (6) History of recent fall Current Visit: Yes Status: Acute Code(s): Z91.81 - HISTORY OF FALLING SNO MED Code(s): 045390267 (7) History of prostate cancer Current Visit: Yes Status: Acute Code(s): Z85.46 - PERSONAL HISTORY OF MALIGNANT NEOPLASM OF PROSTATE SNOMED Code(s): 495330983 (8) History of hyperlipidemia Current Visit: Yes Status: Acute Code(s): Z86.39 - PERSONAL HISTORY OF ENDO, NUTRITIONAL AND METABOLIC DISEASE SNOMED Code(s): 577329463 (9) History of hypertension Current Visit: Yes Status: Acute Code(s): Z86.79 - PERSONAL HISTORY OF OTHER DISEASES OF THE CIRCULATORY SYSTEM SNOMED Code(s): 967145827 (10) History of hypothyroidism Current Visit: Yes Status: Acute Code(s): Z86.39 - PERSONAL HISTORY OF ENDO, NUTRITIONAL AND METABOLIC DISEASE SNOMED Code(s): 733625304 (11) UTI (urinary tract infection) Current Visit: Yes Status: Acute Code(s): N39.0 - URINARY TRACT INFECTION, SITE NOT SPECIFIED SNOMED Code(s): 44190337 Plan: Plan: 1. After physical examination the patient further discussion with the patient, and reviewing of imaging, we are not currently planning for acute surgical intervention or further imaging of the patient's lumbar spine or right lower extremity. Imaging did show evidence of osteoarthritis of the bilateral hip joint spacing. He does not have any increased hip pain with internal and external rotation of the right hip. He has intermittent exacerbations of significant spasm radiating down the entire right lower extremity. Occasionally these symptoms are exacerbated with dorsiflexion on the right. They are also exacerbated with movements of the right lower extremity. These muscle spasms can also start at rest. It is difficult to determine the exact cause of his symptoms. His symptoms have been ongoing over the past week and a half. He did sustain a fall approximately week and a half ago. He does have history of multiple falls. He is nonambulatory. He has been in a wheelchair over the past year. He does have weakness with lifting his right lower extremity. At this time he is scheduled to undergo further testing with his primary care provider Dr. Lopez. We will currently planned to prescribe Flexeril 10 mg 1 tab every 8 hours as needed for muscle spasm for the right lower extremity during his admission to the hospital. If this medication is able to provide him some improvement of his symptoms, we'll plan to have medicine prescribe this m edication at discharge. At this current time, we do not feel there is a current treatment from orthopedic standpoint that would significantly improve his symptoms. We are not planning for surgical intervention. At this time, we will plan to sign off on the patient. If other findings are found during other testing performed by the primary care provider that correlate to his symptoms from an orthopedic standpoint, we may be recontacted or consulted for follow-up evaluation. Following discharge, patient may follow-up on an as-needed basis with Jurgen iMller PA-C or Dr. Arnold Luis at [facility]. 2. Patient will continue to see examined by medicine; patient may plan to be evaluated by Dr. Martinez for inpatient rehabilitation at [facility] is felt appropriate by medicine. Time with Patient: Greater than 30 (Including obtaining history, physical examination, reviewing of imaging, and dictation.)
--- NOTE | 2018-07-29 13:19 | P.PN ---
Subjective Progress Note Date: 07/29/18 This is an 87-year-old male patient of Dr. Lopez with past medical history of prostate cancer status post radiation seeds, hyperlipidemia, hypertension, hypothyroidism. Patient currently residing at [facility] and uses wheelchair to go in the community. Patient apparently had a fall last Tue sd but continued to have neck pain, leg pain and headaches. He did have lumbar spine x-rays that showed no definite acute process. Right hip and pelvis x-ray also showed no acute process. These were done on July [address] Lopez. Patient continued to have pain and he also states that he has not been eating or drinking for the past couple days as he has no appetite. Patient is known to has weakness on his right side and complaining of right hip pain down his leg. He had pelvic x-ray and CT of the head and cervical spine that showed no acute findings. Chest x-ray showed no acute cardiopulmonary process. Urinalysis was positive for urinary tract infection patient started on Rocephin and placed in the observation status. Consult has been added for orthopedics to evaluate right hip pain. It is noted the patient does have spurs at the acetabular in both hips. PT and OT consults have been requested. Urine cultures in progress. Patient states he plans to return home when he leaves the hospital. 07/29: Patient is resting comfortably in bed. Patient is able to answer questions however he is very sleepy. Patient states that he is having less right hip pain at this time than previously. Orthopedics and to see patient and will follow with him as needed on outpatient basis. No further recommendations were given. Urine culture apparent skin and genital froilan only. Patient has been afebrile, pulse rate in the 60s, blood pressure 139/75, he is at 94% on room air. Review Of Systems: Constitutional: No fever, no chills, no night sweats. No weight change. R eports weakness and fatigue. No lethargy. Reports daytime sleepiness. EENT: No headache. No blurred vision or double vision, no loss of vision. No loss of Hearing, no ringing in the ears, no dizziness. No nasal drainage or congestion. No epistaxis. No sore throat. Lungs: No shortness of breath, cough, no sputum production. No wheezing. Cardiovascular: No chest pain, no lower extremity edema. No palpitations. No paroxysmal nocturnal dyspnea. No orthopnea. No lightheadedness or dizziness. No syncopal episodes. Abdominal: no abdominal discomfort. No nausea, vomiting. no diarrhea. No constipation. No bloody or tarry stools. improved loss of appetite. Genitourinary: No dysuria, increased frequency, urgency. No urinary retention. Musculoskeletal: Reports right hip pain that is improved No myalgias. No muscle weakness, reports gait dysfunction uses a wheelchair, no frequent falls. No back pain. No neck pain. Integumentary: No wounds, no lesions. No rash or pruritus. No unusual bruising. No change in hair or nails. Neurologic: No aphasia. No facial droop. No change in mentation. No head injury. No headache. No paralysis. No paresthesia. Psychiatric: No depression. No anxiety. No mood swings. Endocrine: No abnormal blood sugars. No weight change. No excessive sweating or thirst. Objective - Vital Signs Vital signs: Vital Signs Temp 96.9 F L 07/29/18 12:01 Pulse 62 07/29/18 12:01 Resp 16 07/29/18 12:01 BP 139/75 07/29/18 12:01 Pulse Ox 94 L 07/29/18 12:01 Intake & Output 07/28/18 07/29/18 07/29/18 18:59 06:59 18:59 Intake Total 480 Balance 480 Intake: Intake, IV Titration 480 Amount Sodium Chloride 0.9% 1, 480 000 ml @ 60 mls/hr IV . [id number] [facility] Rx#:[id number] Other: Voiding Method Diaper Diaper Diaper Incontinent Incontinent Incontinent # Voids 2 - Exam Gen: This is an 87-year-old male. He appears to be his stated age. He appears to be in no acute distress. Patient is resting in bed. HEENT: Head is atraumatic, normocephalic. Pupils equal, round. Sclerae is anicteric. NECK: Supple. No JVD. No lymphadenopathy. No thyromegaly. LUNGS: Clear to auscultation. No wheezes or rhonchi. No intercostal retractions. HEART: Regular rate and rhythm. Systolic murmur. ABDOMEN: Soft. Bowel sounds are present. No masses. No tenderness. EXTREMITIES: No pedal edema. Tenderness to the right hip area. Pain with range of motion of the right hip. NEUROLOGICAL: Patient is awake, alert and oriented x3. Cranial nerves 2 through 12 are grossly intact. - Labs CBC & Chem 7: 07/27/18 13:07 07/27/18 13:07 Labs: Abnormal Lab Results - Last 24 Hours (Table) 07/27/18 Range/Units 13:07 TSH 8.550 H (0.465-4.680) mIU/L Microbiology - Last 24 Hours (Table) 07/27/18 14:30 Urine Culture - Final Urine,Voided Assessment and Plan Plan: 1. Generalized weakness with dehydration and worsening Parkinson's with recent fall. IV fluids will be changed over to saline lock. 2. Right hip pain and tenderness since fall on Tuesday. X-rays are negative for acute fracture but noted to have spurs at the acetabulum bilaterally. Orthopedic consults reviewed no further recommendations given. Discontinue morphine. Patient on Toradol for pain control or Tylenol #3 as needed. PT and OT consults requested. 3. Acute urinary tract infection. Patient continued on Rocephin. Urine culture was negative. Repeat a urinalysis 4. Parkinson's disease. Continue Sinemet 3 times daily. Continue Requip. 5. Hypertension, hypertensive cardiovascular disease. Continue Lopressor 12.5 mg twice daily 6. Hypothyroidism. Check TSH free T4. Continue levothyroxine. 7. Hyperlipidemia. Continue pravastatin. 8. Recurrent depression. Zoloft 150 mg at bedtime. 9. Gastroesophageal reflux disease. Protonix. 10. History of prostate cancer. Continue Proscar 5 mg at bedtime. 11. DVT prophylaxis. Patient places in observation status. Discharge plan: Return home most likely with homecare. PT and OT added. Consult with Dr. Martinez for possible inpatient rehab. Impression and plan of care have been directed as dictated by the signing physician. Sana Soni nurse practitioner acting as scribe for signing physician.
[2018-07-29] MEDS: Acetaminophen-Codeine 300-30mg TAB PO PRN (17:18)
[2018-07-29] MEDS: SERTRALINE 100 MG TAB PO SCH (20:23)
[2018-07-29] MEDS: FINASTERIDE 5 MG TAB PO SCH (20:24)
[2018-07-29] MEDS: MELATONIN 5 MG TABLET PO SCH (20:24)
[2018-07-29] MEDS: PRAVASTATIN SODIUM 40 MG TAB PO SCH (20:25)
[2018-07-29 20:51] LABS: Appearance,Urine Cloudy (Clear); Bacteria,Urine Few /hpf; Bilirubin,Urine Negative (Negative); Blood,Urine Trace (Negative); Color,Urine Yellow; Glucose,Urine (UA) Negative (Negative); Granular Casts,Urine 4 /lpf (0); Ketones,Urine Negative (Negative); Leukocyte Esterase,Urine Large (Negative); Nitrite,Urine Negative (Negative); Protein,Urine Negative (Negative); RBC,Urine 5 /hpf (0-5); Specific Gravity,Urine 1.013 (1.001-1.035); Squamous Epithelial Cell,Urine <1 /hpf (0-4); Urobilinogen,Urine <2.0 mg/dL (<2.0)
[2018-07-30] MEDS: Acetaminophen-Codeine 300-30mg TAB PO PRN ×2 (00:05→14:45)
[2018-07-30] MEDS: KETOROLAC 30 MG/ML 1 ML VIAL IVP PRN (04:38)
[2018-07-30] MEDS: LEVOTHYROXINE 100 MCG TAB PO SCH (05:58)
[2018-07-30] MEDS: HEPARIN SODIUM,PORCINE 5,000 UNIT/ML 1 ML VIAL SQ SCH ×2 (08:07→20:31)
--- NOTE | 2018-07-30 08:35 | XR ---
EXAMINATION TYPE: XR chest 1V portable DATE OF EXAM: 07/30/2018 HISTORY: Shortness of breath. COMPARISON: 07/27/2018 TECHNIQUE: Single view of the chest is submitted. FINDINGS: Demonstrated are scattered senescent parenchymal change. Progressive patchy infiltrate right upper lobe as well as left lower lobe. Small pleural effusions. The heart is stable. Hilar and mediastinal structures are within normal limits. Degenerative changes are seen of the dorsal spine. IMPRESSION: 1. Progressive patchy infiltrate right upper lobe as well as left lower lobe. Small pleural effusion s.
[2018-07-30] MEDS: LORATADINE 10 MG TAB PO SCH (09:31)
[2018-07-30] MEDS: PANTOPRAZOLE 40 MG TABLET PO SCH ×2 (09:31→14:45)
[2018-07-30] MEDS: ASPIRIN 81 MG PO SCH (09:31)
[2018-07-30] MEDS: METOPROLOL TARTRATE 12.5 MG TAB PO SCH ×2 (09:31→20:32)
[2018-07-30] MEDS: CARBIDOPA-LEVODOPA 25-100 MG 1 EACH TAB PO SCH ×3 (09:32→20:32)
[2018-07-30] MEDS: FOLIC ACID 1 MG TAB PO SCH (09:32)
[2018-07-30] MEDS: ASCORBIC ACID 500 MG TAB PO SCH (14:45)
[2018-07-30] MEDS: CYCLOBENZAPRINE 10 MG TAB PO PRN (14:50)
[2018-07-30] MEDS ORDERED: IOPAMIDOL-300 CONTRAST 30 ML VIAL (ORAL USE) PO PRN (17:02)
[2018-07-30] MEDS ORDERED: BACLOFEN 10 MG TAB PO PRN (17:07)
--- NOTE | 2018-07-30 17:16 | P.PN ---
Subjective Progress Note Date: 07/30/18 This is an 87-year-old male patient of Dr. Lopez with past medical history of prostate cancer status post radiation seeds, hyperlipidemia, hypertension, hypothyroidism. Patient currently residing at [facility] and uses wheelchair to go in the community. Patient apparently had a fall last but continued to have neck pain, leg pain and headaches. He did have lumbar spine x-rays that showed no definite acute process. Right hip and pelvis x-ray also showed no acute process. These were done on July [address] Lopez. Patient continued to have pain and he also states that he has not been eating or drinking for the past couple days as he has no appetite. Patient is known to has weakness on his right side and complaining of right hip pain down his leg. He had pelvic x-ray and CT of the head and cervical spine that showed no acute findings. Chest x-ray showed no acute cardiopulmonary process. Urinalysis was positive for urinary tract infection patient started on Rocephin and placed in the observation status. Consult has been added for orthopedics to evaluate right hip pain. It is noted the patient does have spurs at the acetabular in both hips. PT and OT consults have been requested. Urine cultures in progress. Patient states he plans to return home when he leaves the hospital. 07/29: Patient is resting comfortably in bed. Patient is able to answer questions however he is very sleepy. Patient states that he is having less right hip pain at this time than previously. Orthopedics and to see patient and will follow with him as needed on outpatient basis. No further recommendations were given. Urine culture apparent skin and genital froilan only. Patient has been afebrile, pulse rate in the 60s, blood pressure 139/75, he is at 94% on room air. 07/30 examined at bedside. On discussion with the family at bedside it appears patient did not have any fall that led to the pain in his right lower extremity he did have a fall on 07/13 but there hasn't been any fall recently. He is wheelchair dependent and has to be moved in and out off the bed which might have triggered the patient's muscle spasm. Flexeril is discontinued as patient has no improvement in the pain. Patient also does have some lower quadrant abdominal pain with radiation to groin and spasm in the proximal thigh. We'll order CT abdomen and pelvis to rule out abdominal etiology contributing to patient's pain. Baclofen initiated at 5 mg 3 times a day for muscle spasms. Patient had choking with difficulty swallowing for the last night reported by the nurse. He was made nothing by mouth and chest x-ray was ordered that suggested the right upper lobe and left lower lobe patchy infiltrate concerning for pneumonia and silent aspiration. Speech consulted and they can swallow was ordered. Flagyl initiated at 500 mg 3 times a day. Pending rehab evaluation by Dr. Gabi Palacio ew Of Systems: Constitutional: No fever, no chills, no night sweats. No weight change. Reports weakness and fatigue. No lethargy. Reports daytime sleepiness. EENT: No headache. No blurred vision or double vision, no loss of vision. No loss of Hearing, no ringing in the ears, no dizziness. No nasal drainage or congestion. No epistaxis. No sore throat. Lungs: No shortness of breath, cough, no sputum production. No wheezing. Cardiovascular: No chest pain, no lower extremity edema. No palpitations. No paroxysmal nocturnal dyspnea. No orthopnea. No lightheadedness or dizziness. No syncopal episodes. Abdominal: no abdominal discomfort. No nausea, vomiting. no diarrhea. No constipation. No bloody or tarry stools. improved loss of appetite. Genitourinary: No dysuria, increased frequency, urgency. No urinary retention. Musculoskeletal: Reports right hip pain affecting movement in bed with no significant improvement with improvement No muscle weakness, reports gait dysfunction uses a wheelchair, no frequent falls. No back pain. No neck pain. Integumentary: No wounds, no lesions. No rash or pruritus. No unusual bruising. No change in hair or nails. Neurologic: No aphasia. No facial droop. No change in mentation. No head injury. No headache. No paralysis. No paresthesia. Psychiatric: No depression. No anxiety. No mood swings. Endocrine: No abnormal blood sugars. No weight change. No excessive sweating or thirst. Objective - Vital Signs Vital signs: Vital Signs Temp 97.6 F 07/30/18 12:39 Pulse 66 07/30/18 12:39 Resp 18 07/30/18 12:39 BP 137/74 07/30/18 12:39 Pulse Ox 95 07/30/18 12:39 Intake & Output 07/29/18 07/30/18 07/30/18 18:59 06:59 18:59 Intake Total 160 Balance 160 Intake: IV 160 0.9 160 Other: Voiding Method Diaper Diaper Diaper Incontinent Incontinent Incontinent # Voids 2 3 - Exam - Exam Gen: This is an 87-year-old male. He appears to be his stated age. He appears to be in no acute distress. Patient is resting in bed. HEENT: Head is atraumatic, normocephalic. Pupils equal, round. Sclerae is anicteric. NECK: Supple. No JVD. No lymphadenopathy. No thyromegaly. LUNGS: Clear to auscultation. No wheezes or rhonchi. No intercostal retractions. HEART: Regular rate and rhythm. Systolic murmur. ABDOMEN: Soft. Bowel sounds are present. No masses. No tenderness. EXTREMITIES: No pedal edema. Tenderness to the right hip area. Pain with range of motion of the right hip. NEUROLOGICAL: Patient is awake, alert and oriented x3. Cranial nerves 2 through 12 are grossly intact. - Labs CBC & Chem 7: 07/27/18 13:07 07/27/18 13:07 Labs: Abnormal Lab Results - Last 24 Hours (Table) 07/29/18 Range/Units 20:13 Urine Blood Trace H (Negative) Ur Leukocyte Esterase Large H (Negative) Urine WBC >182 H (0-5) /hpf Urine WBC Clumps Many H (None) /hpf Urine Bacteria Few H (None) /hpf Microbiology - Last 24 Hours (Table) 07/29/18 20:13 Urine Culture - Preliminary Urine,Clean Catch Assessment and Plan Plan: 1. Generalized weakness with dehydration and worsening Parkinson's with recent fall. IV fluids will be changed over to saline lock. 2. Right hip pain and tenderness likely muscular spasm not related to trauma preceding the hip pain X-rays are negative for acute fracture but noted to have spurs at the acetabulum bilaterally. Orthopedic consults reviewed no further recommendations given. Discontinue morphine. Patient on Toradol for pain control or Tylenol #3 as needed. Baclofen initiated. Flexeril discontinued PT and OT consults requested. Inpatient rehab consult with Dr. Ashley pending 3. Acute urinary tract infection. Patient continued on Rocephin. Urine culture was negative. Repeat a urinalysis as previous UA suggested contaminant 4. Parkinson's disease. Continue Sinemet 3 times daily. Continue Requip. 5. Hypertension, hypertensive cardiovascular disease. Continue Lopressor 12.5 mg twice daily 6. Hypothyroidism. Check TSH free T4. Continue levothyroxine. 7. Hyperlipidemia. Continue pravastatin. 8. Recurrent depression. Zoloft 150 mg at bedtime. 9. Gastroesophageal reflux disease. Protonix. 10. History of prostate cancer. Continue Proscar 5 mg at bedtime. 11. DVT prophylaxis. #12 difficulty swallowing with aspiration pneumonia. Keep patient nothing by mouth started patient on D5NS at 75 mL per hour Flagyl 500 mg IV 3 times a day Discharge plan: Return home most likely with homecare. PT and OT added. Consult with Dr. Martinez for possible inpatient rehab.
[2018-07-30] MEDS: DEXTROSE 5%-0.45% NACL 1,000 ML IV SCH (17:41)
[2018-07-30] MEDS: metroNIDAZOLE-NS PMX 500 MG in SALINE 1 100ML.BAG IVPB SCH ×2 (17:44→23:52)
--- NOTE | 2018-07-30 18:43 | CT ---
EXAMINATION TYPE: CT abdomen pelvis w con DATE OF EXAM: 07/30/2018 COMPARISON: 08/17/2017 HISTORY: Right lower quad abd pain with LE pain. CT DLP: 1365 mGycm Automated exposure control for dose reduction was used. TECHNIQUE: Helical acquisition of images was performed from the lung bases through the pelvis. CONTRAST: Performed without Oral Contrast and with IV Contrast, patient injected with 80ml mL of Isovue 300. FINDINGS: There is patchy infiltrate or atelectasis at the posterior lung bases. There are small pleural effusi ons. There is 1 cm cyst in the right lobe of the liver. Spleen appears normal. There is no pancreatic mass. Gallbladder is enlarged and measures 5.5 cm in diameter. There is no gallbladder wall thickeni ng. The bile ducts are not dilated. There is no adrenal mass. There is bilateral hydronephrosis and hydroureter. There is trabeculation o f the urinary bladder. There are implants in the prostate gland. There is no inguinal hernia. There i s mild fat stranding around the rectum. There is no free fluid in the pelvis. There is no evidence of a bowel obstruction. There is no retroperitoneal adenopathy. There is no evidence of a renal mass. T here are left-sided renal cortical cysts that measure 2 cm. There is multilevel spondylosis in the casi mbar spine with some ankylosis. I see no focal bone destruction. IMPRESSION: PLEURAL EFFUSIONS WITH BASILAR PULMONARY INFILTRATES ARE INCREASED COMPARED TO OLD EXAM. DILATED GALL BLADDER SUGGESTIVE OF CHOLECYSTITIS IS A CHANGE COMPARED TO OLD EXAM. BILATERAL HYDRONEPHROSIS AND HYDROURETER CONSISTENT WITH REFLUX DISEASE. OBSTRUCTION IS NEW COMPARED TO OLD EXAM. OBSTRUCTING CALCULUS IS NOT SEEN. THERE IS CLEARING OF THE FAT STRANDING AROUND THE PROX IMAL SIGMOID COLON COMPARED TO OLD EXAM. TRABECULATED URINARY BLADDER HAS PROGRESSED COMPARED TO OLD EXAM. MILD PERIRECTAL FAT STRANDING COULD RELATE TO RADIATION CHANGES IN THIS PATIENT WITH IMPLANTS IN THE PROSTATE GLAND.
[2018-07-30] MEDS: PRAVASTATIN SODIUM 40 MG TAB PO SCH (20:32)
[2018-07-30] MEDS: SERTRALINE 100 MG TAB PO SCH (20:32)
[2018-07-30] MEDS: MELATONIN 5 MG TABLET PO SCH (20:32)
[2018-07-30] MEDS: FINASTERIDE 5 MG TAB PO SCH (20:32)
[2018-07-31] MEDS: LEVOTHYROXINE 100 MCG TAB PO SCH (05:51)
[2018-07-31] MEDS: Acetaminophen-Codeine 300-30mg TAB PO PRN ×2 (05:51→15:34)
[2018-07-31] MEDS: METOPROLOL TARTRATE 12.5 MG TAB PO SCH ×2 (09:00→20:30)
[2018-07-31] MEDS: ASPIRIN 81 MG PO SCH (09:01)
[2018-07-31] MEDS: LORATADINE 10 MG TAB PO SCH (09:01)
[2018-07-31] MEDS: metroNIDAZOLE-NS PMX 500 MG in SALINE 1 100ML.BAG IVPB SCH ×2 (09:01→15:31)
[2018-07-31] MEDS: PANTOPRAZOLE 40 MG TABLET PO SCH ×2 (09:01→15:31)
[2018-07-31] MEDS: CARBIDOPA-LEVODOPA 25-100 MG 1 EACH TAB PO SCH ×3 (09:01→20:29)
[2018-07-31] MEDS: HEPARIN SODIUM,PORCINE 5,000 UNIT/ML 1 ML VIAL SQ SCH ×2 (09:01→20:30)
[2018-07-31] MEDS: FOLIC ACID 1 MG TAB PO SCH (09:02)
[2018-07-31] MEDS: DEXTROSE 5%-0.45% NACL 1,000 ML IV SCH ×2 (09:03→20:30)
--- NOTE | 2018-07-31 11:47 | FL ---
Modified barium swallow. HISTORY: Dysphagia. Modified barium swallow was performed with the department of speech pathology. The patient was prese nted with various consistencies of barium. There is no evidence for aspiration or penetration. Full report is to follow from the department of speech pathology. Impression: Normal study.
--- NOTE | 2018-07-31 13:21 | P.PN ---
Subjective Progress Note Date: 07/31/18 Principal diagnosis: Multiple full, right hip pain post fall, acute urinary tract infection, aspiration pneumonia, Parkinson disease, hypertension, hypothyroidism. This is an 87-year-old male patient of Dr. Lopez with past medical history of prostate cancer status post radiation seeds, hyperlipidemia, hypertension, hypothyroidism. Patient currently residing at [facility] and uses wheelchair to go in the community. Patient apparently had a fall last Tuesday but continued to have neck pain, leg pain and headaches. He did have lumbar spine x-rays that showed no definite acute process. Right hip and pelvis x-ray also showed no acute process. These were done on July [address] Lopez. Patient continued to have pain and he also states that he has not been eating or drinking for the past couple days as he has no appetite. Patient is known to has weakness on his right side and complaining of right hip pain down his leg. He had pelvic x-ray and CT of the head and cervical spine that showed no acute findings. Chest x-ray showed no acute cardiopulmonary process. Urinalysis was positive for urinary tract infection patient started on Rocephin and placed in the observation status. Consult has been added for orthopedics to evaluate right hip pain. It is noted the patient does have spurs at the acetabular in both hips. PT and OT consults have been requested. Urine cultures in progress. Patient states he plans to return home when he leaves the hospital. 07/29: Patient is resting comfortably in bed. Patient is able to answer quest ions however he is very sleepy. Patient states that he is having less right hip pain at this time than previously. Orthopedics and to see patient and will follow with him as needed on outpatient basis. No further recommendations were given. Urine culture apparent skin and genital froilan only. Patient has been afebrile, pulse rate in the 60s, blood pressure 139/75, he is at 94% on room air. 07/30 examined at bedside. On discussion with the family at bedside it appears patient did not have any fall that led to the pain in his right lower extremity he did have a fall on 07/13 but there hasn't been any fall recently. He is wheelchair dependent and has to be moved in and out off the bed which might have triggered the patient's muscle spasm. Flexeril is discontinued as patient has no improvement in the pain. Patient also does have some lower quadrant abdominal pain with radiation to groin and spasm in the proximal thigh. We'll order CT abdomen and pelvis to rule out abdominal etiology contributing to patient's pain. Baclofen initiated at 5 mg 3 times a day for muscle spasms. Patient had choking with difficulty swallowing for the last night reported by the nurse. He was made nothing by mouth and chest x-ray was ordered that suggested the right upper lobe and left lower lobe patchy infiltrate concerning for pneumonia and silent aspiration. Speech consulted and they can swallow was ordered. Flagyl initiated at 500 mg 3 times a day. Pending rehab evaluation by Dr. Martinez. 07/31: Patient is feeling slightly but better is still mildly confused generalized lay week still having mild symptom of UTI and aspiration pneumonia, he has passed his swallow eval and might benefit from PTOT and speech and might require rehab. Objective - Vital Signs Vital signs: Vital Signs Temp 97.9 F 07/31/18 12:15 Pulse 64 07/31/18 12:15 Resp 18 07/31/18 12:15 BP 164/75 07/31/18 12:15 Pulse Ox 95 07/31/18 12:15 Intake & Output 07/30/18 07/31/18 07/31/18 18:59 06:59 18:59 Other: Voiding Method Diaper Diaper Incontinent Incontinent # Voids 3 3 - Exam Review of system: CONSTITUTIONAL: Well-developed no acute respiratory distress. EYES: No icterus sclerae, no conjunctivitis. EARS, NOSE, MOUTH, THROAT, and FACE: No sore throat, lymphadenopathy, carotid bruits or deformity. RESPIRATORY: Mild shortness of breath and cough CARDIOVASCULAR: No CP, Palpitation, PND, Orthopnea, or angina. GASTROINTESTINAL: No dysphagia no GI bleed no nausea or vomiting.. GENITOURINARY: Positive UTI with frequency and urgency. INTEGUMENT/BREAST: Negative for any muscular injury with mild osteoarthritis.. HEMATOLOGIC/LYMPHATIC: Negative for bleed or purpura. MUSCULOSKELTAL: Negative for Myalgia or arthralgia. NEURLOGICAL: Mild altered mental status with slight improvement from before. BEHAVIORAL/PSYCH: Negative. ENDOCRINE: Negative. Physical examination: General Appearance: Alert, cooperative, no distress, appears stated age. Neck HEENT: Supple, no lymphadenopathy, no thyroid enlargement, no carotid bruits. Lungs: Decreased breath some bilateral especially the right side positive for rhonchi with mild expiratory wheezes.. Chest Wall: Chest wall normal expansion with deep inspiration no tenderness and no deformity was found on exam, no costochondral pain or discomfort. Heart: Regular rate and rhythm, S1, S2 normal, no murmur, rub or gallop. Back: Symmetric, no curvature, ROM normal, no CVA tenderness. Abdomen: Soft positive bowel sounds slight discomfort lower back region area no rebound or rigidity. Extremities: Extremities normal, atraumatic, no cyanosis or edema. Pulses: 2+ and symmetric. Skin: Skin color, texture, tugor normal, no rashes or lesions. Neurologic: Alert oriented slight confusion still have abnormal balance and gait. - Labs CBC & Chem 7: 07/27/18 13:07 07/27/18 13:07 Labs: Microbiology - Last 24 Hours (Table) 07/29/18 20:13 Urine Culture - Final Urine,Clean Catch Assessment and Plan Plan: 1 acute encephalopathy: Most likely metabolic secondary to UTI and aspiration pneumonia, continue to treat underlying disease for now and watch improvement over the next few days. Also consult PTOT and speech and patient might require rehab. 2 acute urinary tract infection: Has been on Rocephin with good response so far culture still pending. 3 aspiration pneumonia: With finding on x-ray slight with positive patient will continue up with graft O2 along with Rocephin and Flagyl. 4 hypertension: Has been well controlled on Lopressor. 5 hypothyroidism: Continue levothyroxine. 6 hyperlipidemia: Continue pravastatin. 7 severe GERD: Still on Protonix. 8 DVT prophylaxis: Heparin subcutaneous. CODE STATUS: DO NOT RESUSCITATE. Discharge expectation: Possibly discharge home or to rehab tomorrow.
--- NOTE | 2018-07-31 14:33 | P.CONS ---
History of Present Illness - Chief Complaint Medical debility - History of Present Illness I had the opportunity to see patient for inpatient rehab consultation with regard to medical debility. Patient admitted to [facility] July 27 with history of fall and right hip pain. Seen by Dr. Luis for orthopedics and awaiting my evaluation. Note C-spine CT demonstrates retrolisthesis C2/strain spondylosis. Head CT with age-related atrophy. Venous Doppler right leg negative. Pelvic x- ray with mild narrowing at the hip joints only. Chest x-ray with right upper lobe and left lower lobe infiltrate. CT of abdomen and pelvis demonstrates atelectasis, hydronephrosis, trabeculated bladder and perirectal flat (consistent with prostate implants). PT reports moderate to maximal assistance for bed mobility and sitting. OT reports minimal assistance for upper dressing and maximal assistance for bathing, total assistance for lower dressing and toileting. Unable to transfer. Speech therapy prescribed. Previous functional history as elicited from patient corroborative by daughter: 87-year-old right-handed white male who is lives in [facility], alone. Meals and laundry service provided. Patient receives physical assistance for twice a week shower, dressing and wheelchair mobility. Dr. Lopez is regular doctor. Family history of mother with stomach cancer. Review of Systems Review of systems: ENT: Denies sneezes or discharge. Eyes: Denies discharge or photophobia. Cardiac: Denies chest pain or palpitation. Pulmonary: Denies cough or shortness of breath. Gastrointestinal: Denies nausea, emesis, constipation, diarrhea. Genitourinary: Denies discharge or frequency. Musculoskeletal: Mild right hip discomfort, lateral. Neurologic: Mild memory issues. Endocrine: Denies shakes or sweats. Oncology: Denies cancers. Dermatologic: Denies rash, itching, pruritus. ALLERGY/immunology: Denies sneezes, rashes. 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 wheelchair on community ambulation,. No history of smoking. 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 He was stationed in [place]. He was in the [employer]. No animal exposures Smoking Status: Never smoker Past Alcohol Use History: None Reported Additional Past Alcohol Use History / Comment(s): Patient resides at [facility] and uses wheelchair in the community. No history of smoking. 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 He was stationed in [place]. He was in the [employer]. No animal exposures. Past Drug Use History: None Reported - Past Family History Father Family Medical History: GI Bleed Mother Family Medical History: Cancer Additional Family Medical History / Comment(s): unknown Medications and Allergies Home Medications Medication Instructions Recorded Confirmed Type Ascorbic Acid [Vitamin C] 500 mg PO DAILY@1400 12/04/15 07/27/18 History Carbidopa-Levodopa 25-100 mg 1 tab PO TID@0800,1400,199912/04/15 07/27/18 History [Sinemet 25-100 mg] Finasteride [Proscar] 5 mg PO HS 12/04/15 07/27/18 History Pravastatin Sodium [Pravachol] 40 mg PO HS 12/04/15 07/27/18 History Sertraline [Zoloft] 150 mg PO HS 05/08/16 07/27/18 History Aspirin EC [Ecotrin Low Dose] 81 mg PO DAILY 08/17/17 07/27/18 History Melatonin 5 mg PO HS 08/17/17 07/27/18 History Nitroglycerin Sl Tabs [Nitrostat] 0.4 mg SUBLINGUAL Q5M PRN 08/17/17 07/27/18 History Pantoprazole [Protonix] 40 mg PO BID@0700,1600 08/17/17 07/27/18 History Levothyroxine Sodium [Synthroid] 100 mcg PO DAILY@0630 tab 08/22/17 07/27/18 Rx Acetaminophen [Tylenol Arthritis] 650 mg PO Q4H PRN 07/27/18 07/27/18 History Fluticasone Nasal [place] [Flonase 1 spray EA NOSTRIL BID PRN 07/27/18 07/27/18 History Nasal [place]] Folic Acid 1 mg PO DAILY 07/27/18 07/27/18 History Loratadine [Claritin] 10 mg PO DAILY 07/27/18 07/27/18 History Metoprolol Tartrate [Lopressor] 12.5 mg PO BID 07/27/18 07/27/18 History Nystatin 100,000Unit/gm Cream 1 applic TOPICAL BID PRN 07/27/18 07/27/18 History [Mycostatin Cream] Polyethylene Glycol 3350 [Miralax] 17 gm PO DAILY PRN 07/27/18 07/27/18 History rOPINIRole HCL 0.5 mg PO HS 07/27/18 07/27/18 History Allergies Allergy/AdvReac Type Severity Reaction Status Date / Time No Known Allergies Allergy Verified 07/27/18 13:36 Physical Exam Vitals: Vital Signs Temp Pulse Resp BP Pulse Ox 07/31/18 12:15 97.9 F 64 18 164/75 95 07/31/18 06:02 97.6 F 70 16 151/72 98 07/30/18 21:23 97.4 F L 73 16 154/81 96 Intake and Output 07/30/18 07/31/18 07/31/18 22:59 06:59 14:59 Other: Voiding Method Diaper Diaper Incontinent Incontinent # Voids 1 3 Skin: Atrophic, intact. Advanced elderly. General: Medium build and comfortable appearance. Head: Normocephalic, atraumatic. Eyes: Symmetric. Pupils equal round. Ears: Symmetric. Hearing within normal limits. Mouth: Clear. Neck: Supple. Carotid without bruit. Cardiac: Regular rate and rhythm. Lungs: Clear anteriorly and posteriorly. Abdomen: Soft active nontender. Extremities: Normal tone. Neurological: Mental status: Alert, cooperative, pleasant. Cranial nerves: Symmetric facial tone and trapezius. Motor: Can elevate all 4 limbs but legs are at best antigravity. Sensation: Intact throughout. DTRs: Symmetric and equal throughout. Mobility: Sits with physical assistance. Results CBC & Chem 7: 07/27/18 13:07 07/27/18 13:07 Labs: Microbiology - Last 24 Hours (Table) 07/29/18 20:13 Urine Culture - Final Urine,Clean Catch Assessment and Plan (1) Multiple falls Current Visit: Yes Status: Acute Code(s): R29.6 - REPEATED FALLS SNOMED Code(s): 375342888 Plan: Impression: 1. Walking difficulty. 2. History of multiple falls with recent fall and right hip discomfort or contusion. 3. Hypertension. 4. Dislocated. 5. Neurologic condition. Comments and plan: PT and OT are ongoing. Definite safety concerns noted. Endurance issues noted. Discussed case with daughter who is planning [facility] placement. Patient has been her last year as well as daughter works there as a volunteer. She is comfortable with this discharge plan.
[2018-07-31] MEDS: ASCORBIC ACID 500 MG TAB PO SCH (15:34)
--- NOTE | 2018-07-31 16:48 | CDI ---
Documentation Clarification Form Date: 07/31/2018 From: Chantal Perales RN, CCDS Admit Date: 07/29/2018 10:45:00 AM Patient Name: Js Poe Visit Number: [id number] Discharge Date: ATTENTION: The Clinical Documentation Specialists (CDI) and [facility] Coding Staff appreciate your assistance in clarifying documentation. Please respond to the clarification below the line at the bottom and electronically sign. The CDI & [facility] Coding staff will review the response and follow-up if needed. Please note: Queries are made part of the Legal Health Record. If you have any questions, please contact the author of this message via ITS. Dr. Emily Osullivan Asthma is documented in the H/P and further clarification is needed History/risk factors: Asthma, Heart Failure ESRD on HD, Hypertension, Chronic Bronchitis, Clinical Indicators: 5-year-old male to ER with complaints of shortness of breath. Patient did use breathing treatments and home oxygen at home without much relief. Patient was tachypneic CXR: diffuse interstitial densities appear chronic. Correlate for bronchitis or asthma. Vital Signs: 181/96 76 26 97.2 100 % RA Treatment: Monitor O2 Sat's Duoneb's per orders Solu-Medrol IV (taper) In your professional opinion, can you please further specify the Acute Asthma exacerbation if known? With Acute lower respiratory infection COPD (specify with or without exacerbation) Chronic obstructive bronchitis Other, please specify Unable to determine Severity Mild intermittent Mild persistent Moderate persistent Severe persistent Other, please specify ____ Unable to determine Form or Type Cough variant Childhood Exercise induced bronchospasm Extrinsic allergic Idiosyncratic Intrinsic nonallergic Late-onset Mixed Other, please specify____ Unable to determine (Last Revision: July 2017) MTDD
[2018-07-31] MEDS: FINASTERIDE 5 MG TAB PO SCH (20:30)
[2018-07-31] MEDS: MELATONIN 5 MG TABLET PO SCH (20:30)
[2018-07-31] MEDS: SERTRALINE 100 MG TAB PO SCH (20:30)
[2018-07-31] MEDS: PRAVASTATIN SODIUM 40 MG TAB PO SCH (20:30)
[2018-08-01] MEDS: metroNIDAZOLE-NS PMX 500 MG in SALINE 1 100ML.BAG IVPB SCH ×2 (00:26→07:52)
[2018-08-01] MEDS: METOPROLOL TARTRATE 12.5 MG TAB PO SCH (05:55)
[2018-08-01] MEDS: LEVOTHYROXINE 100 MCG TAB PO SCH (05:55)
[2018-08-01] MEDS: PANTOPRAZOLE 40 MG TABLET PO SCH (07:52)
[2018-08-01] MEDS: CARBIDOPA-LEVODOPA 25-100 MG 1 EACH TAB PO SCH ×2 (07:52→13:10)
[2018-08-01] MEDS: HEPARIN SODIUM,PORCINE 5,000 UNIT/ML 1 ML VIAL SQ SCH (07:53)
[2018-08-01] MEDS: LORATADINE 10 MG TAB PO SCH (07:53)
[2018-08-01] MEDS: ASPIRIN 81 MG PO SCH (07:53)
[2018-08-01 08:01] LABS: Calcium 8.2 mg/dL (8.4-10.2); Potassium 3.4 mmol/L (3.5-5.1); Total Bilirubin 0.5 mg/dL (0.2-1.3); Total Protein 5.7 g/dL (6.3-8.2)
[2018-08-01 08:21] LABS: Basophils % (A) 0 %; Eosinophils # (A) 0.2 k/uL (0-0.7); Eosinophils % (A) 3 %; HCT 27.5 % (39.0-53.0); HGB 9.5 gm/dL (13.0-17.5); Lymphocytes # (A) 0.8 k/uL (1.0-4.8); Lymphocytes % (A) 8 %; MCH 32.8 pg (25.0-35.0); MCHC 34.4 g/dL (31.0-37.0); MCV 95.3 fL (80.0-100.0); Mean Platelet Volume 7.1; Monocytes # (A) 0.6 k/uL (0-1.0); Monocytes % (A) 6 %; Neutrophils # (A) 7.6 k/uL (1.3-7.7); Neutrophils % (A) 81 %; Platelet Count 197 k/uL (150-450); RBC 2.89 m/uL (4.30-5.90); RDW 14.4 % (11.5-15.5); WBC 9.4 k/uL (3.8-10.6)
[2018-08-01] MEDS: DEXTROSE 5%-0.45% NACL 1,000 ML IV SCH (08:56)
[2018-08-01] MEDS: Acetaminophen-Codeine 300-30mg TAB PO PRN (09:03)
--- NOTE | 2018-08-01 09:10 | P.DS ---
Providers Date of admission: 07/29/18 10:45 Expected date of discharge: 08/01/18 Attending physician: Aguilar Brooke Consults: 07/28/18 10:44 Consult Physician Routine Consulting Provider: Tonya Luis Consult Reason/Comments: right hip pain, fall last week Do you want consulting provider notified?: Yes 07/28/18 12:32 Consult Physician Routine Consulting Provider: Desmond Martinez Consult Reason/Comments: Inpatient rehab, Parkinson's, fall Do you want consulting provider notified?: Yes Primary care physician: Arsalan Lopez [facility] Course: This is an 87-year-old male patient of Dr. Lopez with past medical history of prostate cancer status post radiation seeds, hyperlipidemia, hypertension, hypothyroidism. Patient currently residing at [facility] and uses wheelchair to go in the community. Patient apparently had a fall last Tuesday but continued to have neck pain, leg pain and headaches. He did have lumbar spine x-rays that showed no definite acute process. Right hip and pelvis x-ray also showed no acute process. These were done on July [address] Lopez. Patient continued to have pain and he also states that he has not been eating or drinking for the past couple days as he has no appetite. Patient is known to has weakness on his right side and complaining of right hip pain down his leg. He had pelvic x-ray and CT of the head and cervical spine that showed no acute findings. Chest x-ray showed no acute cardiopulmonary process. Urinalysis was positive for urinary tract infection patient started on Rocephin and placed in the observation status. Consult has been added for orthopedics to evaluate right hip pain. It is noted the patient does have spurs at the acetabular in both hips. PT and OT consults have been requested. Urine cultures in progress. Patient states he plans to return home when he leaves the hospital. 07/29: Patient is resting comfortably in bed. Patient is able to answer questions however he is very sleepy. Patient states that he is having less right hip pain at this time than previously. Orthopedics and to see patient and will follow with him as needed on outpatient basis. No further recommendations were given. Urine culture apparent skin and genital froilan only. Patient has been afebrile, pulse rate in the 60s, blood pressure 139/75, he is at 94% on room air. 07/30 Patient examined at bedside. On discussion with the family at bedside it appears patient did not have any fall that led to the pain in his right lower extremity he did have a fall on 07/13 but there hasn't been any fall recently. He is wheelchair dependent and has to be moved in and out off the bed which might have triggered the patient's muscle spasm. Flexeril is discontinued as patient has no improvement in the pain. Patient also does have some lower quadrant abdominal pain with radiation to groin and spasm in the proximal thigh. We'll order CT abdomen and pelvis to rule out abdominal etiology contributing to patient's pain. Baclofen initiated at 5 mg 3 times a day for muscle spasms. Patient had choking with difficulty swallowing for the last night reported by the nurse. He was made nothing by mouth and chest x-ray was ordered that suggested the right upper lobe and left lower lobe patchy infiltrate concerning for pneumonia and silent aspiration. Speech consulted and they can swallow was ordered. Flagyl initiated at 500 mg 3 times a day. Pending rehab evaluation by Dr. Martinez. 07/31: Patient is feeling slightly but better is still mildly confused generalized lay week still having mild symptom of UTI and aspiration pneumonia, he has passed his swallow eval and might benefit from PTOT and speech and might require rehab. 08/01: At the time of discharge, white count is 9.4, hemoglobin 9.5, platelet count 197, potassium 3.4 will be replaced prior to discharge, BUN 25 creatinine 1.15, calcium 8.2. 2 urine cultures on separate occasions have been completed and finalize with genital froilan. Patient has been afebrile, heart rate in the 60s and 70s, blood pressure 172/83, pulse ox 94% on room air. Patient will be discharge to [facility] today in stable condition once all arrangements are completed. Discharge diagnoses: 1. Acute metabolic encephalopathy secondary to UTI and aspiration pneumonia with generalized weakness, dehydration and worsening Parkinson's with recent fall. 2. Right hip pain and tenderness since fall on Tuesday. X-rays are negative for acute fracture but noted to have spurs at the acetabulum bilaterally. 3. Acute urinary tract infection. 4. Parkinson's disease. 5. Hypertension, hypertensive cardiovascular disease. 6. Hypothyroidism. 7. Hyperlipidemia. 8. Recurrent depression. 9. Gastroesophageal reflux disease. 10. History of prostate cancer. Discharge plan: [facility] Impression and plan of care have been directed as dictated by the signing physician. Rowena Lott nurse practitioner acting as scribe for signing physician. Patient Condition at Discharge: Good Plan - Discharge Summary New Discharge Prescriptions: New Levofloxacin [Levaquin] 250 mg PO DAILY #5 tablet Baclofen [Lioresal] 5 mg PO TID PRN tab PRN Reason: Muscle Spasm Acetaminophen-Codeine 300-30mg [Tylenol w/codeine #3] 1 each PO Q6HR PRN #12 tab PRN Reason: Moderate Pain Continue Carbidopa-Levodopa 25-100 mg [Sinemet 25-100 mg] 1 tab PO TID@0800,1400,1999 Pravastatin Sodium [Pravachol] 40 mg PO HS Finasteride [Proscar] 5 mg PO HS Ascorbic Acid [Vitamin C] 500 mg PO DAILY@1400 Sertraline [Zoloft] 150 mg PO HS Aspirin EC [Ecotrin Low Dose] 81 mg PO DAILY Melatonin 5 mg PO HS Pantoprazole [Protonix] 40 mg PO BID@0700,1600 Nitroglycerin Sl Tabs [Nitrostat] 0.4 mg SUBLINGUAL Q5M PRN PRN Reason: Chest Pain Levothyroxine Sodium [Synthroid] 100 mcg PO DAILY@0630 tab Nystatin 100,000Unit/gm Cream [Mycostatin Cream] 1 applic TOPICAL BID PRN PRN Reason: Rash Fluticasone Nasal [place] [Flonase Nasal [place]] 1 spray EA NOSTRIL BID PRN PRN Reason: Allergy Symptoms Acetaminophen [Tylenol Arthritis] 650 mg PO Q4H PRN PRN Reason: Pain rOPINIRole HCL 0.5 mg PO HS Metoprolol Tartrate [Lopressor] 12.5 mg PO BID Loratadine [Claritin] 10 mg PO DAILY Folic Acid 1 mg PO DAILY Polyethylene Glycol 3350 [Miralax] 17 gm PO DAILY PRN PRN Reason: Constipation Discharge Medication List Ascorbic Acid [Vitamin C] 500 mg PO DAILY@1400 12/04/15 [History] Carbidopa-Levodopa 25-100 mg [Sinemet 25-100 mg] 1 tab PO TID@0800,1400,199912/04/15 [History] Finasteride [Proscar] 5 mg PO HS 12/04/15 [History] Pravastatin Sodium [Pravachol] 40 mg PO HS 12/04/15 [History] Sertraline [Zoloft] 150 mg PO HS 05/08/16 [History] Aspirin EC [Ecotrin Low Dose] 81 mg PO DAILY 08/17/17 [History] Melatonin 5 mg PO HS 08/17/17 [History] Nitroglycerin Sl Tabs [Nitrostat] 0.4 mg SUBLINGUAL Q5M PRN 08/17/17 [History] Pantoprazole [Protonix] 40 mg PO BID@0700,1600 08/17/17 [History] Levothyroxine Sodium [Synthroid] 100 mcg PO DAILY@0630 tab 08/22/17 [Rx] Acetaminophen [Tylenol Arthritis] 650 mg PO Q4H PRN 07/27/18 [History] Fluticasone Nasal [place] [Flonase Nasal [place]] 1 spray EA NOSTRIL BID PRN 07/27/18 [History] Folic Acid 1 mg PO DAILY 07/27/18 [History] Loratadine [Claritin] 10 mg PO DAILY 07/27/18 [History] Metoprolol Tartrate [Lopressor] 12.5 mg PO BID 07/27/18 [History] Nystatin 100,000Unit/gm Cream [Mycostatin Cream] 1 applic TOPICAL BID PRN 07/27/18 [History] Polyethylene Glycol 3350 [Miralax] 17 gm PO DAILY PRN 07/27/18 [History] rOPINIRole HCL 0.5 mg PO HS 07/27/18 [History] Acetaminophen-Codeine 300-30mg [Tylenol w/codeine #3] 1 each PO Q6HR PRN #12 tab 08/01/18 [Rx] Baclofen [Lioresal] 5 mg PO TID PRN tab 08/01/18 [Rx] Levofloxacin [Levaquin] 250 mg PO DAILY #5 tablet 08/01/18 [Rx] Follow up Appointment(s)/Referral(s): Arsalan Lopez MD [Primary Care Provider] - 1 Week (at [facility]) Jurgen Miller PAC [PHYSICIAN [employer]] - As Needed (Patient may follow-up with Jurgen Miller PA-C or Dr. Arnold Luis at [facility] on an as-needed basis following discharge. ) Discharge Disposition: TRANSFER TO SNF/ECF
[2018-08-01 11:58] VITALS: BP 135/93; PULSE 68; RESP 18; TEMP 98
[2018-08-01] MEDS: FOLIC ACID 1 MG TAB PO SCH (13:10)
[2018-08-01] MEDS: ASCORBIC ACID 500 MG TAB PO SCH (13:10)
[2018-08-01] MEDS ORDERED: metroNIDAZOLE 500 MG TAB PO SCH (16:00)
== END 2018-08-01 14:00 | DRG 689 ==
LOC: EC 12:01 → 3NMEDONC 16:04 → OBSVTOIN 07-29 10:45
PROVIDERS: ADMIT Internal Medicine; ATTEND Internal Medicine
DX: N13.6 Pyonephrosis (principal); J69.0 Pneumonitis due to inhalation of food and vomit; G93.41 Metabolic encephalopathy; F33.9 Major depressive disorder, recurrent, unspecified; J98.11 Atelectasis; Z66 Do not resuscitate; E86.0 Dehydration; G20 Parkinson's disease; I11.9 Hypertensive heart disease without heart failure; M16.0 Bilateral primary osteoarthritis of hip; M62.838 Other muscle spasm; R32 Unspecified urinary incontinence; R29.6 Repeated falls; E78.5 Hyperlipidemia, unspecified; E03.9 Hypothyroidism, unspecified; K21.9 Gastro-esophageal reflux disease without esophagitis; F41.9 Anxiety disorder, unspecified; Z79.82 Long term (current) use of aspirin; Z79.890 Hormone replacement therapy; Z79.899 Other long term (current) drug therapy; Z91.81 History of falling; Z85.828 Personal history of other malignant neoplasm of skin; Z85.46 Personal history of malignant neoplasm of prostate; Z92.3 Personal history of irradiation; Z99.3 Dependence on wheelchair; W19.XXXA Unspecified fall, initial encounter; Z80.0 Family history of malignant neoplasm of digestive organs; N32.89 Other specified disorders of bladder; R13.10 Dysphagia, unspecified; M54.2 Cervicalgia; M47.9 Spondylosis, unspecified
CPT/HCPCS: 36415; 70450; 71045; 72125; 72170; 74177; 74230; 80053; 81001; 83735; 84100; 84439; 84443; 84484; 85025; 85610; 85730; 87086; 93005; 96361; 96374; 99285

== ENCOUNTER 2019-01-16 13:37 | Inpatient (IN) | payer MEDICARE, BC ==
--- NOTE | 2019-01-16 14:30 | ED ---
General Adult HPI - General Chief complaint: Recheck/Abnormal Lab/Rx Stated complaint: abnormal ultrasound Time Seen by Provider: 01/16/19 13:40 Source: patient, RN notes reviewed Mode of arrival: ambulatory Limitations: no limitations - History of Present Illness Initial comments: This is an 88-year-old male who presents emergency Department because he was sent in by his primary medical care doctor. Family gives most of the history but is very poor history. Patient was complaining of change in urination and not going as much as he should. Patient had an ultrasound today of his bladder may be kidneys according to family and there was an abnormality and patient was sent here they do not know what the abnormality was no phone call from the gabriela gonzales was received in the ER. Patient currently states he has no complaints lying in bed. Patient denies any fever chills patient denies abdominal pain patient denies any back pain patient denies any chest pain difficulty breathing shortness of breath. - Related Data Home Medications Medication Instructions Recorded Confirmed Carbidopa-Levodopa 25-100 mg 1 tab PO TID@0800,1400,199912/04/15 01/16/19 [Sinemet 25-100 mg] Finasteride [Proscar] 5 mg PO HS 12/04/15 01/16/19 Pravastatin Sodium [Pravachol] 40 mg PO HS@199912/04/15 01/16/19 Sertraline [Zoloft] 150 mg PO HS@199905/08/16 01/16/19 Aspirin EC [Ecotrin Low Dose] 81 mg PO DAILY@169908/17/17 01/16/19 Melatonin 5 mg PO HS@199908/17/17 01/16/19 Nitroglycerin Sl Tabs [Nitrostat] 0.4 mg SUBLINGUAL Q5M PRN 08/17/17 01/16/19 Pantoprazole [Protonix] 40 mg PO BID@0800,1700 08/17/17 01/16/19 Acetaminophen [Tylenol Arthritis] 650 mg PO Q4H PRN 07/27/18 01/16/19 Fluticasone Nasal [place] [Flonase 1 spray EA NOSTRIL BID PRN 07/27/18 01/16/19 Nasal [place]] Folic Acid 1 mg PO DAILY@1700 07/27/18 01/16/19 Loratadine [Claritin] 10 mg PO DAILY@0800 07/27/18 01/16/19 Metoprolol Tartrate [Lopressor] 12.5 mg PO BID@0800,1700 07/27/18 01/16/19 Polyethylene Glycol 3350 [Miralax] 17 gm PO DAILY PRN 07/27/18 01/16/19 rOPINIRole HCL [Requip] 0.5 mg PO HS@199907/27/18 01/16/19 Acetaminophen-Codeine 300-30mg 1 tab PO Q6HR PRN 01/16/19 01/16/19 [Tylenol w/codeine #3] Ascorbic Acid [Vitamin C] 500 mg PO DAILY@1700 01/16/19 01/16/19 Baclofen [Lioresal] 10 mg PO TID PRN 01/16/19 01/16/19 Cyanocobalamin (Vitamin B-12) 1,000 mcg PO DAILY@0800 01/16/19 01/16/19 [Vitamin B-12] Ferrous Sulfate [Iron] 325 mg PO DAILY@0800 01/16/19 01/16/19 Ketorolac 0.5% Ophth Soln [Acular 1 drop RIGHT EYE BID@0800,199901/16/19 01/16/19 0.5%] Levothyroxine Sodium [Synthroid] 112 mcg PO DAILY@0801/16/19 01/16/19 Tamsulosin HCl [Flomax] 0.4 mg PO DAILY@199901/16/19 01/16/19 Allergies Allergy/AdvReac Type Severity Reaction Status Date / Time No Known Allergies Allergy Verified 01/16/19 14:17 Review of Systems ROS Statement: Those systems with pertinent positive or pertinent negative responses have been documented in the HPI. ROS Other: All systems not noted in ROS Statement are negative. 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 History of Any Multi-Drug Resistant Organisms: None Reported, MRSA Date of last positivie culture/infection: 06/19/18 MDRO Source:: urine Past Surgical History: Appendectomy, Tonsillectomy Additional Past Surgical History / Comment(s): radiation seeds 2009, spot of skin cancer removed from head 10/2015 Past Anesthesia/Blood Transfusion Reactions: No Reported Reaction Past Psychological History: Anxiety, Depression Smoking Status: Never smoker Past Alcohol Use History: None Reported Past Drug Use History: None Reported - Past Family History Father Family Medical History: GI Bleed Mother Family Medical History: Cancer Additional Family Medical History / Comment(s): unknown General Exam - General Exam Comments Initial Comments: GENERAL: Patient is well-developed and well-nourished. Patient is nontoxic and well- hydrated and is in mild distress. ENT: Neck is soft and supple. No significant lymphadenopathy is noted. Oropharynx is clear. Moist mucous membranes. Neck has full range of motion without eliciting any pain. EYES: The sclera were anicteric and conjunctiva were pink and moist. Extraocular movements were intact and pupils were equal round and reactive to light. Eyelids were unremarkable. PULMONARY: Unlabored respirations. Good breath sounds bilaterally. No audible rales rhonchi or wheezing was noted. CARDIOVASCULAR: There is a regular rate and rhythm without any murmurs gallops or rubs. ABDOMEN: Patient's left lower quadrant tenderness no rebound SKIN: Skin is clear with no lesions or rashes and otherwise unremarkable. NEUROLOGIC: Patient is alert and oriented x3. Cranial nerves II through XII are grossly intact. Motor and sensory are also intact. Normal speech, volume and content. Symmetrical smile. MUSCULOSKELETAL: Normal extremities with adequate strength and full range of motion. No lower extremity swelling or edema. No calf tenderness. LYMPHATICS: No significant lymphadenopathy is noted PSYCHIATRIC: Normal psychiatric evaluation. Limitations: no limitations Course Vital Signs 01/16/19 13:40 Temperature 97.4 F L Pulse Rate 88 Respiratory 20 Rate Blood Pressure 95/56 O2 Sat by Pulse 97 Oximetry Medical Decision Making - Medical Decision Making Patient's urine had quite a few white cells I started the patient on Rocephin. Patient was having urinary retention with over 500 mL of urine was unable to urinate so we placed a Cabrera catheter the patient. I spoke with Dr. Osmel Bolivar wanted the patient admitted I admitted him hydrated the patient continued antibiotics and consulted urology. I reviewed the ultrasound from this morning and it showed bilateral hydronephrosis - Lab Data Result diagrams: 01/16/19 15:10 01/16/19 15:10 Lab Results 01/16/19 01/16/19 01/16/19 Range/Units 15:07 15:10 15:10 WBC 10.1 (3.8-10.6) k/uL RBC 2.61 L (4.30-5.90) m/uL Hgb 8.6 L (13.0-17.5) gm/dL Hct 25.4 L (39.0-53.0) % MCV 97.1 (80.0-100.0) fL MCH 33.0 (25.0-35.0) pg MCHC 34.0 (31.0-37.0) g/dL RDW 14.6 (11.5-15.5) % Plt Count 187 (150-450) k/uL Neutrophils % 85 % Lymphocytes % 7 % Monocytes % 5 % Eosinophils % 1 % Basophils % 1 % Neutrophils # 8.6 H (1.3-7.7) k/uL Lymphocytes # 0.7 L (1.0-4.8) k/uL Monocytes # 0.5 (0-1.0) k/uL Eosinophils # 0.1 (0-0.7) k/uL Basophils # 0.1 (0-0.2) k/uL Sodium 139 (137-145) mmol/L Potassium 4.1 (3.5-5.1) mmol/L Chloride 104 (98-107) mmol/L Carbon Dioxide 19 L (22-30) mmol/L Anion Gap 16 mmol/L BUN 63 H (9-20) mg/dL Creatinine 2.60 H (0.66-1.25) mg/dL Est GFR (CKD-EPI)AfAm 24 (>60 ml/min/1.73 sqM) Est GFR (CKD-EPI)NonAf 21 (>60 ml/min/1.73 sqM) Glucose 112 H (74-99) mg/dL Plasma Lactic Acid Rene (0.7-2.0) mmol/L Calcium 9.0 (8.4-10.2) mg/dL Total Bilirubin 0.3 (0.2-1.3) mg/dL AST 15 L (17-59) U/L ALT <6 L (21-72) U/L Alkaline Phosphatase 87 (38-126) U/L Total Protein 7.5 (6.3-8.2) g/dL Albumin 3.9 (3.5-5.0) g/dL Urine Color Yellow Urine Appearance Turbid (Clear) Urine pH 8.0 (5.0-8.0) Ur Specific [place] 1.013 (1.001-1.035) Urine Protein 2+ H (Negative) Urine Glucose (UA) Negative (Negative) Urine Ketones Negative (Negative) Urine Blood Small H (Negative) Urine Nitrite Negative (Negative) Urine Bilirubin Negative (Negative) Urine Urobilinogen <2.0 (<2.0) mg/dL Ur Leukocyte Esterase Large H (Negative) Urine RBC 64 H (0-5) /hpf Urine WBC >182 H (0-5) /hpf Ur Squamous Epith Cells 36 H (0-4) /hpf Urine Bacteria Few H (None) /hpf Hyaline Casts 26 H (0-2) /lpf 01/16/19 Range/Units 15:40 WBC (3.8-10.6) k/uL RBC (4.30-5.90) m/uL Hgb (13.0-17.5) gm/dL Hct (39.0-53.0) % MCV (80.0-100.0) fL MCH (25.0-35.0) pg MCHC (31.0-37.0) g/dL RDW (11.5-15.5) % Plt Count (150-450) k/uL Neutrophils % % Lymphocytes % % Monocytes % % Eosinophils % % Basophils % % Neutrophils # (1.3-7.7) k/uL Lymphocytes # (1.0-4.8) k/uL Monocytes # (0-1.0) k/uL Eosinophils # (0-0.7) k/uL Basophils # (0-0.2) k/uL Sodium (137-145) mmol/L Potassium (3.5-5.1) mmol/L Chloride (98-107) mmol/L Carbon Dioxide (22-30) mmol/L Anion Gap mmol/L BUN (9-20) mg/dL Creatinine (0.66-1.25) mg/dL Est GFR (CKD-EPI)AfAm (>60 ml/min/1.73 sqM) Est GFR (CKD-EPI)NonAf (>60 ml/min/1.73 sqM) Glucose (74-99) mg/dL Plasma Lactic Acid Rene 0.9 (0.7-2.0) mmol/L Calcium (8.4-10.2) mg/dL Total Bilirubin (0.2-1.3) mg/dL AST (17-59) U/L ALT (21-72) U/L Alkaline Phosphatase (38-126) U/L Total Protein (6.3-8.2) g/dL Albumin (3.5-5.0) g/dL Urine Color Urine Appearance (Clear) Urine pH (5.0-8.0) Ur Specific [place] (1.001-1.035) Urine Protein (Negative) Urine Glucose (UA) (Negative) Urine Ketones (Negative) Urine Blood (Negative) Urine Nitrite (Negative) Urine Bilirubin (Negative) Urine Urobilinogen (<2.0) mg/dL Ur Leukocyte Esterase (Negative) Urine RBC (0-5) /hpf Urine WBC (0-5) /hpf Ur Squamous Epith Cells (0-4) /hpf Urine Bacteria (None) /hpf Hyaline Casts (0-2) /lpf Disposition Clinical Impression: Urinary tract infection, Hydronephrosis, bilateral Disposition: ADMITTED IP TO THIS HOSP Referrals: Arsalan Lopez MD [Primary Care Provider] - 1-2 days Time of Disposition: 16:43
[2019-01-16 16:14] LABS: Basophils # (A) 0.1 k/uL (0-0.2); Basophils % (A) 1 %; Eosinophils # (A) 0.1 k/uL (0-0.7); Eosinophils % (A) 1 %; HCT 25.4 % (39.0-53.0); HGB 8.6 gm/dL (13.0-17.5); Lymphocytes # (A) 0.7 k/uL (1.0-4.8); Lymphocytes % (A) 7 %; MCV 97.1 fL (80.0-100.0); Mean Platelet Volume 6.8; Monocytes # (A) 0.5 k/uL (0-1.0); Monocytes % (A) 5 %; Neutrophils # (A) 8.6 k/uL (1.3-7.7); Neutrophils % (A) 85 %; Platelet Count 187 k/uL (150-450); RBC 2.61 m/uL (4.30-5.90); RDW 14.6 % (11.5-15.5); WBC 10.1 k/uL (3.8-10.6)
[2019-01-16 16:21] LABS: ALT <6 U/L (21-72); AST 15 U/L (17-59); African American GFR (CKD) 24 (>60 ml/min/1.73 sqM); Albumin 3.9 g/dL (3.5-5.0); Alkaline Phosphatase 87 U/L (38-126); Anion Gap 16 mmol/L; Blood Urea Nitrogen 63 mg/dL (9-20); Carbon Dioxide 19 mmol/L (22-30); Chloride 104 mmol/L (98-107); Glucose 112 mg/dL (74-99); Potassium 4.1 mmol/L (3.5-5.1); Sodium 139 mmol/L (137-145); Total Bilirubin 0.3 mg/dL (0.2-1.3); Total Protein 7.5 g/dL (6.3-8.2)
[2019-01-16 16:23] LABS: Appearance,Urine Turbid (Clear); Bacteria,Urine Few /hpf; Bilirubin,Urine Negative (Negative); Blood,Urine Small (Negative); Color,Urine Yellow; Glucose,Urine (UA) Negative (Negative); Hyaline Casts,Urine 26 /lpf (0-2); Ketones,Urine Negative (Negative); Leukocyte Esterase,Urine Large (Negative); Nitrite,Urine Negative (Negative); Protein,Urine 2+ (Negative); RBC,Urine 64 /hpf (0-5); Specific Gravity,Urine 1.013 (1.001-1.035); Squamous Epithelial Cell,Urine 36 /hpf (0-4); Urobilinogen,Urine <2.0 mg/dL (<2.0); WBC,Urine >182 /hpf (0-5)
[2019-01-16] MEDS ORDERED: cefTRIAXone IN SWFI 1,000 MG/10 ML SYRINGE IVP STA (16:35)
[2019-01-16] MEDS ORDERED: SODIUM CHLORIDE 0.9% 1,000 ML IV ONE (16:44)
[2019-01-16] MEDS ORDERED: ACETAMINOPHEN TAB 500 MG TAB PO PRN (16:47)
[2019-01-16] MEDS ORDERED: NITROGLYCERIN SL TABS 0.4 MG TAB SUBLINGUAL PRN (19:34)
[2019-01-16] MEDS ORDERED: Acetaminophen-Codeine 300-30mg TAB PO PRN (19:34)
[2019-01-16] MEDS ORDERED: POLYETHYLENE GLYCOL 3350 17 GM POWD.PACK PO PRN (19:34)
[2019-01-16] MEDS: TAMSULOSIN 0.4 MG CAP.ER.24H PO SCH (20:34)
[2019-01-16] MEDS: CARBIDOPA-LEVODOPA 25-100 MG 1 EACH TAB PO SCH (20:34)
[2019-01-16] MEDS: SERTRALINE 100 MG TAB PO SCH (20:35)
[2019-01-16] MEDS: FINASTERIDE 5 MG TAB PO SCH (20:35)
[2019-01-16] MEDS: PRAVASTATIN SODIUM 40 MG TAB PO SCH (20:35)
[2019-01-16] MEDS: MELATONIN 5 MG TABLET PO SCH (20:35)
[2019-01-16] MEDS: ACETAMINOPHEN TAB 325 MG TAB PO PRN (20:56)
[2019-01-16] MEDS: BACLOFEN 10 MG TAB PO PRN (20:56)
[2019-01-17] MEDS: LEVOTHYROXINE 112 MCG TAB PO SCH (05:54)
[2019-01-17] MEDS: FERROUS SULFATE 325 MG TAB PO SCH (07:48)
[2019-01-17] MEDS: METOPROLOL TARTRATE 12.5 MG TAB PO SCH ×2 (07:48→16:28)
[2019-01-17] MEDS: KETOROLAC 0.5% OPHTH DROPS 5 ML BTL RIGHT EYE SCH ×2 (07:48→19:36)
[2019-01-17] MEDS: CYANOCOBALAMIN 500 MCG TAB PO SCH (07:48)
[2019-01-17] MEDS: CARBIDOPA-LEVODOPA 25-100 MG 1 EACH TAB PO SCH ×3 (07:48→19:36)
[2019-01-17] MEDS: LORATADINE 10 MG TAB PO SCH (07:48)
[2019-01-17] MEDS: PANTOPRAZOLE 40 MG TABLET PO SCH ×2 (07:48→16:28)
[2019-01-17 09:09] LABS: Basophils % (A) 0 %; Eosinophils # (A) 0.1 k/uL (0-0.7); Eosinophils % (A) 1 %; HCT 24.4 % (39.0-53.0); HGB 7.7 gm/dL (13.0-17.5); Lymphocytes # (A) 0.8 k/uL (1.0-4.8); Lymphocytes % (A) 10 %; MCH 31.4 pg (25.0-35.0); MCHC 31.6 g/dL (31.0-37.0); MCV 99.3 fL (80.0-100.0); Macrocytosis Slight; Mean Platelet Volume 6.8; Monocytes # (A) 0.5 k/uL (0-1.0); Monocytes % (A) 6 %; Neutrophils # (A) 6.4 k/uL (1.3-7.7); Neutrophils % (A) 81 %; Platelet Count 153 k/uL (150-450); RBC 2.46 m/uL (4.30-5.90); RDW 14.6 % (11.5-15.5); WBC 7.8 k/uL (3.8-10.6)
[2019-01-17 09:16] VITALS: BMI 25.7
[2019-01-17 09:24] LABS: Albumin 3.4 g/dL (3.5-5.0); Calcium 8.5 mg/dL (8.4-10.2); Potassium 3.6 mmol/L (3.5-5.1); Total Bilirubin 0.3 mg/dL (0.2-1.3); Total Protein 6.9 g/dL (6.3-8.2)
--- NOTE | 2019-01-17 10:57 | P.GSCN ---
History of Present Illness Consult date: 01/17/19 History of present illness: This is an 88-year-old gentleman who was admitted from what appears to be the [facility] home for difficulty with urination and hydronephrosis. He is a patient of Dr. Martins. Unfortunately the history is very limited. The patient's mental clarity is limited as well as is expression. Most of the history is taken from the chart. There is a history of prostate cancer. He was treated with radium seeds based on the old chart as well as x-ray appearance this apparently was done many years ago down in [place]. Ration is not aware of whether he is been following for his prostate cancer. He has not seen the urologist in some time. He does not know the name of the urologist. He states that over the last 3-4 months he has had increasing difficulty with urination. There has been incontinence and this period of time. The patient was in the hospital back in July. He had a computed tomography scan of the abdomen. It showed bilateral hydronephrosis with a full bladder at that point in time. He was also found to have bilateral hydronephrosis on ultrasound on this admission. He was found to be in urine retention. No further history can be given. He denies blood in the urine or urinary infection however the accuracy this is indeterminate. He states he feels better with the catheter in place. 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 No history of smoking. 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 He was stationed in [email or web address]. He was in the [employer]. No animal exposures Smoking Status: Never smoker Past Alcohol Use History: None Reported Additional Past Alcohol Use History / Comment(s): Patient resides at [facility] [place] and uses wheelchair in the community. No history of smoking. 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 He was stationed in [email or web address]. He was in the [employer]. No animal exposures. Past Drug Use History: None Reported - Past Family History Father Family Medical History: GI Bleed Mother Family Medical History: Cancer Additional Family Medical History / Comment(s): stomach cancer Medications and Allergies Home Medications Medication Instructions Recorded Confirmed Type Carbidopa-Levodopa 25-100 mg 1 tab PO TID@0800,1400,199912/04/15 01/16/19 Hist ory [Sinemet 25-100 mg] Finasteride [Proscar] 5 mg PO HS 12/04/15 01/16/19 History Pravastatin Sodium [Pravachol] 40 mg PO HS@199912/04/15 01/16/19 History Sertraline [Zoloft] 150 mg PO HS@199905/08/16 01/16/19 History Aspirin EC [Ecotrin Low Dose] 81 mg PO DAILY@0 08/17/17 01/16/19 History Melatonin 5 mg PO HS@199908/17/17 01/16/19 History Nitroglycerin Sl Tabs [Nitrostat] 0.4 mg SUBLINGUAL Q5M PRN 08/17/17 01/16/19 History Pantoprazole [Protonix] 40 mg PO BID@0800,1700 08/17/17 01/16/19 History Acetaminophen [Tylenol Arthritis] 650 mg PO Q4H PRN 07/27/18 01/16/19 History Fluticasone Nasal [place] [Flonase 1 spray EA NOSTRIL BID PRN 07/27/18 01/16/19 History Nasal [place]] Folic Acid 1 mg PO DAILY@1700 07/27/18 01/16/19 History Loratadine [Claritin] 10 mg PO DAILY@0800 07/27/18 01/16/19 History Metoprolol Tartrate [Lopressor] 12.5 mg PO BID@0800,1700 07/27/18 01/16/19 History Polyethylene Glycol 3350 [Miralax] 17 gm PO DAILY PRN 07/27/18 01/16/19 History rOPINIRole HCL [Requip] 0.5 mg PO HS@199907/27/18 01/16/19 History Acetaminophen-Codeine 300-30mg 1 tab PO Q6HR PRN 01/16/19 01/16/19 History [Tylenol w/codeine #3] Ascorbic Acid [Vitamin C] 500 mg PO DAILY@1700 01/16/19 01/16/19 History Baclofen [Lioresal] 10 mg PO TID PRN 01/16/19 01/16/19 History Cyanocobalamin (Vitamin B-12) 1,000 mcg PO DAILY@0800 01/16/19 01/16/19 History [Vitamin B-12] Ferrous Sulfate [Iron] 325 mg PO DAILY@0801/16/19 01/16/19 History Ketorolac 0.5% Ophth Soln [Acular 1 drop RIGHT EYE BID@08,199901/16/19 01/16/19 History 0.5%] Levothyroxine Sodium [Synthroid] 112 mcg PO DAILY@0801/16/19 01/16/19 History Tamsulosin HCl [Flomax] 0.4 mg PO DAILY@199901/16/19 01/16/19 History Allergies Allergy/AdvReac Type Severity Reaction Status Date / Time No Known Allergies Allergy Verified 01/16/19 14:17 Surgical - Exam Vital Signs Temp Pulse Resp BP Pulse Ox 97.4 F L 88 20 95/56 97 01/16/19 13:40 01/16/19 13:40 01/16/19 13:40 01/16/19 13:40 01/16/19 13:40 - General well developed, well nourished, no distress - Eyes PERRL - ENT decreased hearing - Neck trachea midline - Respiratory normal expansion, normal respiratory effort - Cardiovascular Rhythm: regular - Abdomen Abdomen: soft, non tender - Genitourinary Indwelling catheter, uncircumcised penis. Normal testes and epididymis. Prostate is small flat without nodule. - Integumentary no rash, no growths - Neurologic memory loss - Musculoskeletal normal posture - Psychiatric oriented to person Results - Labs 01/17/19 08:20 01/17/19 08:20 Abnormal Lab Results - Last 24 Hours (Table) 01/16/19 01/16/19 01/16/19 Range/Units 15:07 15:10 15:10 RBC 2.61 L (4.30-5.90) m/uL Hgb 8.6 L (13.0-17.5) gm/dL Hct 25.4 L (39.0-53.0) % Neutrophils # 8.6 H (1.3-7.7) k/uL Lymphocytes # 0.7 L (1.0-4.8) k/uL Chloride (98-107) mmol/L Carbon Dioxide 19 L (22-30) mmol/L BUN 63 H (9-20) mg/dL Creatinine 2.60 H (0.66-1.25) mg/dL Glucose 112 H (74-99) mg/dL AST 15 L (17-59) U/L ALT <6 L (21-72) U/L Albumin (3.5-5.0) g/dL Urine Protein 2+ H (Negative) Urine Blood Small H (Negative) Ur Leukocyte Esterase Large H (Negative) Urine RBC 64 H (0-5) /hpf Urine WBC >182 H (0-5) /hpf Ur Squamous Epith Cells 36 H (0-4) /hpf Urine Bacteria Few H (None) /hpf Hyaline Casts 26 H (0-2) /lpf 01/17/19 01/17/19 Range/Units 08:20 08:20 RBC 2.46 L (4.30-5.90) m/uL Hgb 7.7 L (13.0-17.5) gm/dL Hct 24.4 L (39.0-53.0) % Neutrophils # (1.3-7.7) k/uL Lymphocytes # 0.8 L (1.0-4.8) k/uL Chloride 108 H (98-107) mmol/L Carbon Dioxide 19 L (22-30) mmol/L BUN 55 H (9-20) mg/dL Creatinine 2.43 H (0.66-1.25) mg/dL Glucose 110 H (74-99) mg/dL AST 13 L (17-59) U/L ALT 6 L (21-72) U/L Albumin 3.4 L (3.5-5.0) g/dL Urine Protein (Negative) Urine Blood (Negative) Ur Leukocyte Esterase (Negative) Urine RBC (0-5) /hpf Urine WBC (0-5) /hpf Ur Squamous Epith Cells (0-4) /hpf Urine Bacteria (None) /hpf Hyaline Casts (0-2) /lpf Diabetes panel 01/16/19 01/17/19 Range/Units 15:10 08:20 Sodium 139 139 (137-145) mmol/L Potassium 4.1 3.6 (3.5-5.1) mmol/L Chloride 104 108 H (98-107) mmol/L Carbon Dioxide 19 L 19 L (22-30) mmol/L BUN 63 H 55 H (9-20) mg/dL Creatinine 2.60 H 2.43 H (0.66-1.25) mg/dL Glucose 112 H 110 H (74-99) mg/dL Calcium 9.0 8.5 (8.4-10.2) mg/dL AST 15 L 13 L (17-59) U/L ALT <6 L 6 L (21-72) U/L Alkaline Phosphatase 87 77 (38-126) U/L Total Protein 7.5 6.9 (6.3-8.2) g/dL Albumin 3.9 3.4 L (3.5-5.0) g/dL Calcium panel 01/16/19 01/17/19 Range/Units 15:10 08:20 Calcium 9.0 8.5 (8.4-10.2) mg/dL Albumin 3.9 3.4 L (3.5-5.0) g/dL Pituitary panel 01/16/19 01/17/19 Range/Units 15:10 08:20 Sodium 139 139 (137-145) mmol/L Potassium 4.1 3.6 (3.5-5.1) mmol/L Chloride 104 108 H (98-107) mmol/L Carbon Dioxide 19 L 19 L (22-30) mmol/L BUN 63 H 55 H (9-20) mg/dL Creatinine 2.60 H 2.43 H (0.66-1.25) mg/dL Glucose 112 H 110 H (74-99) mg/dL Calcium 9.0 8.5 (8.4-10.2) mg/dL Adrenal panel 01/16/19 01/17/19 Range/Units 15:10 08:20 Sodium 139 139 (137-145) mmol/L Potassium 4.1 3.6 (3.5-5.1) mmol/L Chloride 104 108 H (98-107) mmol/L Carbon Dioxide 19 L 19 L (22-30) mmol/L BUN 63 H 55 H (9-20) mg/dL Creatinine 2.60 H 2.43 H (0.66-1.25) mg/dL Glucose 112 H 110 H (74-99) mg/dL Calcium 9.0 8.5 (8.4-10.2) mg/dL Total Bilirubin 0.3 0.3 (0.2-1.3) mg/dL AST 15 L 13 L (17-59) U/L ALT <6 L 6 L (21-72) U/L Alkaline Phosphatase 87 77 (38-126) U/L Total Protein 7.5 6.9 (6.3-8.2) g/dL Albumin 3.9 3.4 L (3.5-5.0) g/dL - Imaging CT scan - abdomen: report reviewed, image reviewed CT scan - pelvis: report reviewed, image reviewed US - abdomen: report reviewed, image reviewed Assessment and Plan Assessment: Impression: The patient is found to be in urine retention. This appears to be chronic based on the computed tomography scan from July. He has bilateral hydronephrosis most likely secondary to that. He has renal failure most likely chronic associated due to the hydronephrosis . He has a history of prostate cancer treated interstital seeds, status unknown. He has memory loss. Recommendation: I would leave the catheter indwelling. I will obtain a PSA. At some point in time we will give him a voiding trial however he may need urodynamics and cystoscopy as an outpatient to further assess that situation. It sounds as if his urine retention is chronic. The etiology is indeterminate. Time with Patient: Greater than 30
--- NOTE | 2019-01-17 12:11 | P.HPIM ---
History of Present Illness H&P Date: 01/16/19 Chief Complaint: Acute kidney failure, bilateral hydronephrosis, obstructive uropathy, histo 88-year-old male one of Dr. Lopez's patient with past medical history of Parkinson disease, Atherosclerosis heart disease, hypertension, hyperlipidemia and hypothyroidism who had history of prostate cancer post radiation seeds back in 2009. Patient was seen Dr. Lopez recently and found to have significantly elevated creatinine and BUN compared to before. His per prostate exam and assessment showed mildly elevated PSA ended 2-3 level with no sign of recurrent prostate cancer patient was sent for ultrasound of the kidney showed bilateral hydronephrosis. Was sent to the emergency department where was seen and evaluated apparently for the last 2 weeks has not been feeling well running low-grade temperature having difficulty in urination with frequency urgency hesitancy and dribbling only with smaller amount of urine when he voids. Found to have significant urinary retention inserting Cabrera patient had almost 600 mL out his UA came back very positive patient was diagnosed with sepsis UTI obstructive uropathy and acute renal failure was started on IV hydration IV antibiotics we'll consult nephrology and admit patient to the hospital for the above problem. Review of Systems CONSTITUTIONAL: Well-developed no acute respiratory distress. Confuse hepatitic very comfortable. EYES: No icterus sclerae, no conjunctivitis. EARS, NOSE, MOUTH, THROAT, and FACE: No sore throat, lymphadenopathy, carotid bruits or deformity. RESPIRATORY: No SOB cough or wheezes. CARDIOVASCULAR: No chest pain positive mild palpitation positive PND or and orthopnea positive edema. GASTROINTESTINAL: No Abd pain, Nausea or vomiting, no Diarrhea or constipation, No GI Bleed, no distention or masses. GENITOURINARY: Recurrent infection with history of prostate cancer post radiation therapy over 15 years ago, patient still have urinary retention and frequency with mild incontinence. INTEGUMENT/BREAST: Negative for any muscular injury with mild osteoarthritis.. HEMATOLOGIC/LYMPHATIC: Negative for bleed or purpura. MUSCULOSKELTAL: Negative for Myalgia or arthralgia. NEURLOGICAL: Positive memory loss. BEHAVIORAL/PSYCH: Negative. ENDOCRINE: Negative. 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. wheelchair on community ambulation,. No history of smoking. 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 He was stationed in [place]. He was in the [employer]. No animal exposures Smoking Status: Never smoker Past Alcohol Use History: None Reported Additional Past Alcohol Use History / Comment(s): Patient resides at [facility] and uses wheelchair in the community. No history of smoking. 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 He was stationed in [place]. He was in the [employer]. No animal exposures. Past Drug Use History: None Reported - Past Family History Father Family Medical History: GI Bleed Mother Family Medical History: Cancer Additional Family Medical History / Comment(s): stomach cancer Medications and Allergies Home Medications Medication Instructions Recorded Confirmed Type Carbidopa-Levodopa 25-100 mg 1 tab PO TID@0800,1400,199912/04/15 01/16/19 History [Sinemet 25-100 mg] Finasteride [Proscar] 5 mg PO 12/04/15 01/16/19 History Pravastatin Sodium [Pravachol] 40 mg PO HS@199912/04/15 01/16/19 History Sertraline [Zoloft] 150 mg PO HS@199905/08/16 01/16/19 History Aspirin EC [Ecotrin Low Dose] 81 mg PO DAILY@169908/17/17 01/16/19 History Melatonin 5 mg PO HS@199908/17/17 01/16/19 History Nitroglycerin Sl Tabs [Nitrostat] 0.4 mg SUBLINGUAL Q5M PRN 08/17/17 01/16/19 History Pantoprazole [Protonix] 40 mg PO BID@0800,1700 08/17/17 01/16/19 History Acetaminophen [Tylenol Arthritis] 650 mg PO Q4H PRN 07/27/18 01/16/19 History Fluticasone Nasal [place] [Flonase 1 spray EA NOSTRIL BID PRN 07/27/18 01/16/19 History Nasal [place]] Folic Acid 1 mg PO DAILY@1700 07/27/18 01/16/19 History Loratadine [Claritin] 10 mg PO DAILY@0800 07/27/18 01/16/19 History Metoprolol Tartrate [Lopressor] 12.5 mg PO BID@0800,1700 07/27/18 01/16/19 History Polyethylene Glycol 3350 [Miralax] 17 gm PO DAILY PRN 07/27/18 01/16/19 History rOPINIRole HCL [Requip] 0.5 mg PO HS@199907/27/18 01/16/19 History Acetaminophen-Codeine 300-30mg 1 tab PO Q6HR PRN 01/16/19 01/16/19 History [Tylenol w/codeine #3] Ascorbic Acid [Vitamin C] 500 mg PO DAILY@17001/16/19 01/16/19 History Baclofen [Lioresal] 10 mg PO TID PRN 01/16/19 01/16/19 History Cyanocobalamin (Vitamin B-12) 1,000 mcg PO DAILY@0800 01/16/19 01/16/19 History [Vitamin B-12] Ferrous Sulfate [Iron] 325 mg PO DAILY@0800 01/16/19 01/16/19 History Ketorolac 0.5% Ophth Soln [Acular 1 drop RIGHT EYE BID@08,199901/16/1911/27 History 0.5%] Levothyroxine Sodium [Synthroid] 112 mcg PO DAILY@0801/16/19 01/16/19 History Tamsulosin HCl [Flomax] 0.4 mg PO DAILY@199901/16/19 01/16/19 History Allergies Allergy/AdvReac Type Severity Reaction Status Date / Time No Known Allergies Allergy Verified 01/16/19 14:17 Physical Exam Vitals: Vital Signs Temp Pulse Resp BP Pulse Ox 01/16/19 17:30 68 16 137/83 98 01/16/19 17:00 71 18 129/69 97 01/16/19 16:30 71 19 127/57 98 01/16/19 15:30 76 18 128/90 98 01/16/19 14:30 67 19 105/62 100 01/16/19 14:00 68 21 110/61 96 01/16/19 13:40 97.4 F L 88 20 95/56 97 Intake and Output 01/16/19 01/16/19 01/16/19 06:59 14:59 22:59 Intake Total 240 Balance 240 Intake: Oral 240 Other: Weight 83.915 kg General Appearance: Alert, cooperative, no distress, appears stated age. Neck HEENT: Supple, no lymphadenopathy, no thyroid enlargement, no carotid br uits. Lungs: Clear to auscultation without crackles or wheezes no rhonchi, no deformity. Chest Wall: Chest wall normal expansion with deep inspiration no tenderness and no deformity was found on exam, no costochondral pain or discomfort. Heart: Regular rate and rhythm, S1, S2 normal, positive straight positive JVD. Back: Symmetric, no curvature, ROM normal, no CVA tenderness. Abdomen: Soft distended with slight discomfort and lower abdominal region area no rebound rigidity no masses Extremities: Extremities normal, atraumatic, positive bilateral lower extremity arthritis with slight discoloration from the knee down. Trace edema. Pulses: 1+ and symmetric. Skin: Skin color, texture, tugor normal, no rashes or lesions. Neurologic: Alert oriented x3 cranial nerves II through XII intact, no motor deficit, no abnormal balance or gait. Mild memory loss. Results CBC & Chem 7: 01/17/19 08:20 01/17/19 08:20 Labs: Abnormal Lab Results - Last 24 Hours (Table) 01/16/19 01/16/19 01/16/19 Range/Units 15:07 15:10 15:10 RBC 2.61 L (4.30-5.90) m/uL Hgb 8.6 L (13.0-17.5) gm/dL Hct 25.4 L (39.0-53.0) % Neutrophils # 8.6 H (1.3-7.7) k/uL Lymphocytes # 0.7 L (1.0-4.8) k/uL Carbon Dioxide 19 L (22-30) mmol/L BUN 63 H (9-20) mg/dL Creatinine 2.60 H (0.66-1.25) mg/dL Glucose 112 H (74-99) mg/dL AST 15 L (17-59) U/L ALT <6 L (21-72) U/L Urine Protein 2+ H (Negative) Urine Blood Small H (Negative) Ur Leukocyte Esterase Large H (Negative) Urine RBC 64 H (0-5) /hpf Urine WBC >182 H (0-5) /hpf Ur Squamous Epith Cells 36 H (0-4) /hpf Urine Bacteria Few H (None) /hpf Hyaline Casts 26 H (0-2) /lpf Thrombosis Risk Factor Assmnt - DVT/VTE Prophylaxis DVT/VTE Prophylaxis: Pharmacologic Prophylaxis ordered, Mechanical Prophylaxis ordered - Choose All That Apply Each Risk Factor Represents 3 Points: Age 75 years or older Thrombosis Risk Factor Assessment Total Risk Factor Score: 3 Thrombosis Risk Factor Assessment Level: Moderate Risk Assessment and Plan Plan: 1 acute kidney injury: Most likely from obstructive uropathy causing bilateral hydronephrosis, continue indwelling catheter, and nephrology consultation repeat BUN/creatinine next 24 hours continue hydration. 2 bilateral hydronephrosis: With obstructive uropathy whether there is other factors are not to be this decided we'll consult nephrology this point. 3 sepsis and urinary tract infection: With positive UA mildly elevated white blood cell with left-sided differential along with some of your eye tract in fection no male his age of mild confusion low-grade temperature fatigue nausea and not feeling well. Rocephin was started will continue medication awaiting for culture. 4 Parkinson disease: Has been on Sinemet and Requip continue both medication. 5 chronic back pain: Has been on baclofen and Tylenol No. 3 as needed. 6 hyperlipidemia: On Pravachol. 7 hypothyroidism: Continue levothyroxine 112 g daily. 8 history of prostate cancer post radiation still on Proscar and Flomax. 9 chronic depression: Has been on Zoloft. 10 iron deficiency anemia: Remain on iron supplement daily. 11 chronic pain syndrome: Remain on Tylenol No. 3 and baclofen as needed. 12 GI prophylaxis/severe GERD: Continue pantoprazole at 40 mg daily. 13 DVT prophylaxis: Patient will have Venodyne boots and knee-high VERONICA hose and if needed heparin subcutaneous can be use. CODE STATUS: Full code. Admit patient to inpatient status for more than 2 nights.
[2019-01-17] MEDS: SODIUM CHLORIDE 0.9% 1,000 ML IV SCH (12:44)
--- NOTE | 2019-01-17 13:06 | CDI ---
Documentation Clarification Form Date: 01/17/2019 12:51:00 PM From: Michelle Lewis RN CCDS Admit Date: 01/16/2019 4:44:00 PM Patient Name: Js Poe Visit Number: [id number] Discharge Date: ATTENTION: The Clinical Documentation Specialists (CDI) and [facility] Coding Staff appreciate your assistance in clarifying documentation. Please respond to the clarification below the line at the bottom and electronically sign. The CDI & [facility] Coding staff will review the response and follow-up if needed. Please note: Queries are made part of the Legal Health Record. If you have any questions, please contact the author of this message via ITS. Dr. Isma Bolivar Chronic pain syndrome is documented in your H & P 01/16/2019 Patient history/risk factors: 88-year-old male presents to the ED sent in by PCP for change in his urination. Medical history Prostate Cancer; Parkinsons; Chronic back pain Vital Signs: 95/56 88 97.4 20 97% ra Other Clinical Indicators: Per your H & P Chronic back pain Treatment: Medication: Tylenol #3 Po Q 6hrs PRN pain In order to capture the severity of condition, if possible and in your professional opinion, please clarify the following: * Chronic Opioid dependence * Other, please specify * Unable to determine (Last Revision: January 2017) chronic opioid dependence MTDD
--- NOTE | 2019-01-17 14:00 | P.PN ---
Subjective Progress Note Date: 01/17/19 88-year-old male one of Dr. Lopez's patient with past medical history of Parkinson disease, Atherosclerosis heart disease, hypertension, hyperlipidemia and hypothyroidism who had history of prostate cancer post radiation seeds back in 2009. Patient was seen Dr. Lopez recently and found to have significantly elevated creatinine and BUN compared to before. His per prostate exam and assessment showed mildly elevated PSA ended 2-3 level with no sign of recurrent prostate cancer patient was sent for ultrasound of the kidney showed bilateral hydronephrosis. Was sent to the emergency department where was seen and evaluated apparently for the last 2 weeks has not been feeling well running low-grade temperature having difficulty in urination with frequency urgency hesitancy and dribbling only with smaller amount of urine when he voids. Found to have significant urinary retention inserting Cabrera patient had almost 600 mL out his UA came back very positive patient was diagnosed with sepsis UTI obstructive uropathy and acute renal failure was started on IV hydration IV antibiotics we'll consult nephrology and admit patient to the hospital for the above problem. Patient has been seen by Dr. Obrien with recommendations to maintain Cabrera catheter, check PSA. He has been afebrile, heart rate 78, blood pressure 118/67, pulse ox 98% on room air. Repeat lab work reveals to WBC 7.8, he moglobin 7.7. BUN 55 and creatinine 2.43. CO2 remains at 19. The patient is currently on Rocephin. Initial urine was a poor specimen and repeat urine culture ordered. Blood culture is status post received. The patient resides at [facility] and will be returning there at the time of discharge. Physical therapy added. Objective - Vital Signs Vital signs: Vital Signs Temp 98.1 F 01/17/19 04:30 Pulse 78 01/17/19 04:30 Resp 20 01/17/19 04:30 BP 118/67 01/17/19 04:30 Pulse Ox 98 01/17/19 04:30 Intake & Output 01/16/19 01/17/19 01/17/19 18:59 06:59 18:59 Intake Total 240 220 Output Total 400 625 Balance 240 -180 -625 Weight 83.915 kg 83.915 kg Intake: Oral 240 220 Output: Urine 400 625 Other: Voiding Method Indwelling Catheter - Exam Review of Systems CONSTITUTIONAL: Well-developed no acute respiratory distress. Confuse. EYES: No icterus sclerae, no conjunctivitis. EARS, NOSE, MOUTH, THROAT, and FACE: No sore throat, lymphadenopathy, carotid bruits or deformity. RESPIRATORY: No SOB cough or wheezes. CARDIOVASCULAR: No chest pain positive mild palpitation positive PND or and orthopnea positive edema. GASTROINTESTINAL: No Abd pain, Nausea or vomiting, no Diarrhea or constipation, No GI Bleed, no distention or masses. GENITOURINARY: Recurrent infection with history of prostate cancer post radiation therapy over 15 years ago, patient still have urinary retention and frequency with mild incontinence. INTEGUMENT/BREAST: Negative for any muscular injury with mild osteoarthritis.. HEMATOLOGIC/LYMPHATIC: Negative for bleed or purpura. MUSCULOSKELTAL: Negative for Myalgia or arthralgia. NEURLOGICAL: Positive memory loss. BEHAVIORAL/PSYCH: Negative. ENDOCRINE: Negative. General Appearance: Alert, cooperative, no distress, appears stated age. Neck HEENT: Supple, no lymphadenopathy, no thyroid enlargement, no carotid bruits. Lungs: Clear to auscultation without crackles or wheezes no rhonchi, no deformity. Chest Wall: Chest wall normal expansion with deep inspiration no tenderness and no deformity was found on exam. Heart: Regular rate and rhythm, S1, S2 normal, positive straight positive JVD. Back: Symmetric, no curvature, ROM normal, no CVA tenderness. Abdomen: Soft distended with slight discomfort and lower abdominal region area no rebound rigidity no masses. Cabrera catheter with erasmo urine. Extremities: Extremities normal, atraumatic, positive bilateral lower extremity arthritis with slight discoloration from the knee down. Trace edema. Pulses: 1+ and symmetric. Skin: Skin color, texture, tugor normal, no rashes or lesions. Neurologic: Alert oriented x2 cranial nerves II through XII intact, no motor deficit, no abnormal balance or gait. Mild memory loss. - Labs CBC & Chem 7: 01/17/19 08:20 01/17/19 08:20 Labs: Abnormal Lab Results - Last 24 Hours (Table) 01/16/19 01/16/19 01/16/19 Range/Units 15:07 15:10 15:10 RBC 2.61 L (4.30-5.90) m/uL Hgb 8.6 L (13.0-17.5) gm/dL Hct 25.4 L (39.0-53.0) % Neutrophils # 8.6 H (1.3-7.7) k/uL Lymphocytes # 0.7 L (1.0-4.8) k/uL Chloride (98-107) mmol/L Carbon Dioxide 19 L (22-30) mmol/L BUN 63 H (9-20) mg/dL Creatinine 2.60 H (0.66-1.25) mg/dL Glucose 112 H (74-99) mg/dL AST 15 L (17-59) U/L ALT <6 L (21-72) U/L Albumin (3.5-5.0) g/dL Urine Protein 2+ H (Negative) Urine Blood Small H (Negative) Ur Leukocyte Esterase Large H (Negative) Urine RBC 64 H (0-5) /hpf Urine WBC >182 H (0-5) /hpf Ur Squamous Epith Cells 36 H (0-4) /hpf Urine Bacteria Few H (None) /hpf Hyaline Casts 26 H (0-2) /lpf 01/17/19 01/17/19 Range/Units 08:20 08:20 RBC 2.46 L (4.30-5.90) m/uL Hgb 7.7 L (13.0-17.5) gm/dL Hct 24.4 L (39.0-53.0) % Neutrophils # (1.3-7.7) k/uL Lymphocytes # 0.8 L (1.0-4.8) k/uL Chloride 108 H (98-107) mmol/L Carbon Dioxide 19 L (22-30) mmol/L BUN 55 H (9-20) mg/dL Creatinine 2.43 H (0.66-1.25) mg/dL Glucose 110 H (74-99) mg/dL AST 13 L (17-59) U/L ALT 6 L (21-72) U/L Albumin 3.4 L (3.5-5.0) g/dL Urine Protein (Negative) Urine Blood (Negative) Ur Leukocyte Esterase (Negative) Urine RBC (0-5) /hpf Urine WBC (0-5) /hpf Ur Squamous Epith Cells (0-4) /hpf Urine Bacteria (None) /hpf Hyaline Casts (0-2) /lpf Assessment and Plan Plan: 1 acute kidney injury: Most likely from obstructive uropathy causing bilateral hydronephrosis, continue indwelling catheter, urology consult appreciated. Repeat BUN/creatinine next 24 hours continue hydration. 2 bilateral hydronephrosis: With obstructive uropathy . Urology consult appreciated. Cabrera catheter in place. Continue finasteride 5 mg at bedtime and Flomax 0.4 mg daily. whether there is other factors are not to be this decided we'll consult nephrology this point. 3 sepsis and urinary tract infection: Repeat urinalysis and obtain urine culture. Rocephin was started will continue medication awaiting for culture. 4 Parkinson disease: Has been on Sinemet and Requip continue both medication. 5 chronic back pain: Has been on baclofen and Tylenol No. 3 as needed. 6 hyperlipidemia: On Pravachol. 7 hypothyroidism: Continue levothyroxine 112 g daily. 8 history of prostate cancer post radiation still on Proscar and Flomax. 9 chronic depression: Has been on Zoloft. 10 iron deficiency anemia: Remain on iron supplement daily. 11 chronic pain syndrome: Remain on Tylenol No. 3 and baclofen as needed. 12 GI prophylaxis/severe GERD: Continue pantoprazole at 40 mg daily. 13 DVT prophylaxis: Patient will have Venodyne boots and knee-high VERONICA hose and if needed heparin subcutaneous can be use. CODE STATUS: Full code. Discharge plan: Return to [facility]. Impression and plan of care have been directed as dictated by the signing physician. Rowena Lott nurse practitioner acting as scribe for signing physician.
[2019-01-17 14:29] LABS: Amorphous Sediment,Urine Occasional /hpf; Appearance,Urine Cloudy (Clear); Bacteria,Urine Moderate /hpf; Bilirubin,Urine Negative (Negative); Blood,Urine Moderate (Negative); Color,Urine Light Yellow; Glucose,Urine (UA) Negative (Negative); Ketones,Urine Negative (Negative); Leukocyte Esterase,Urine Large (Negative); Mucus,Urine Few /hpf; Nitrite,Urine Negative (Negative); PH, Urine 5.5 (5.0-8.0); Protein,Urine 1+ (Negative); RBC,Urine 16 /hpf (0-5); Specific Gravity,Urine 1.011 (1.001-1.035); Urobilinogen,Urine <2.0 mg/dL (<2.0)
[2019-01-17] MEDS: ACETAMINOPHEN TAB 325 MG TAB PO PRN (15:24)
[2019-01-17] MEDS: ASPIRIN 81 MG PO SCH (16:28)
[2019-01-17] MEDS: FOLIC ACID 1 MG TAB PO SCH (16:28)
[2019-01-17] MEDS: ASCORBIC ACID 500 MG TAB PO SCH (16:28)
[2019-01-17] MEDS: MELATONIN 5 MG TABLET PO SCH (19:35)
[2019-01-17] MEDS: SERTRALINE 100 MG TAB PO SCH (19:35)
[2019-01-17] MEDS: TAMSULOSIN 0.4 MG CAP.ER.24H PO SCH (19:36)
[2019-01-17] MEDS: PRAVASTATIN SODIUM 40 MG TAB PO SCH (19:36)
[2019-01-17] MEDS: FINASTERIDE 5 MG TAB PO SCH (22:05)
[2019-01-18] MEDS: SODIUM CHLORIDE 0.9% 1,000 ML IV SCH ×3 (01:26→19:42)
[2019-01-18] MEDS: LEVOTHYROXINE 112 MCG TAB PO SCH (05:54)
[2019-01-18 09:00] LABS: HCT 23.2 % (39.0-53.0); HGB 7.5 gm/dL (13.0-17.5); MCH 31.7 pg (25.0-35.0); MCHC 32.4 g/dL (31.0-37.0); MCV 97.9 fL (80.0-100.0); Mean Platelet Volume 6.4; Platelet Count 172 k/uL (150-450); RBC 2.37 m/uL (4.30-5.90); RDW 14.7 % (11.5-15.5); WBC 7.2 k/uL (3.8-10.6)
[2019-01-18 09:09] LABS: Calcium 8.5 mg/dL (8.4-10.2); Potassium 3.6 mmol/L (3.5-5.1)
[2019-01-18] MEDS: KETOROLAC 0.5% OPHTH DROPS 5 ML BTL RIGHT EYE SCH ×2 (09:25→19:39)
[2019-01-18] MEDS: FERROUS SULFATE 325 MG TAB PO SCH (09:25)
[2019-01-18] MEDS: PANTOPRAZOLE 40 MG TABLET PO SCH ×2 (09:25→17:56)
[2019-01-18] MEDS: LORATADINE 10 MG TAB PO SCH (09:25)
[2019-01-18] MEDS: METOPROLOL TARTRATE 12.5 MG TAB PO SCH ×2 (09:25→17:56)
[2019-01-18] MEDS: CARBIDOPA-LEVODOPA 25-100 MG 1 EACH TAB PO SCH ×3 (09:25→19:39)
[2019-01-18] MEDS: CYANOCOBALAMIN 500 MCG TAB PO SCH (09:25)
[2019-01-18] MEDS: LEVOFLOXACIN 250 MG TAB PO SCH (12:26)
--- NOTE | 2019-01-18 12:51 | P.PN ---
Subjective Progress Note Date: 01/18/19 Principal diagnosis: Acute kidney failure, bilateral hydronephrosis, sepsis with UTI, Parkinson disease, history of prostate cancer and iron deficiency anemia. 88-year-old male one of Dr. Lopez's patient with past medical history of Parkinson disease, Atherosclerosis heart disease, hypertension, hyperlipidemia and hypothyroidism who had history of prostate cancer post radiation seeds back in 2009. Patient was seen Dr. Lopez recently and found to have significantly elevated creatinine and BUN compared to before. His per prostate exam and assessment showed mildly elevated PSA ended 2-3 level with no sign of recurrent prostate cancer patient was sent for ultrasound of the kidney showed bilateral hydronephrosis. Was sent to the emergency department where was seen and evaluated apparently for the last 2 weeks has not been feeling well running low-grade temperature having difficulty in urination with frequency urgency hesitancy and dribbling only with smaller amount of urine when he voids. Found to have significant urinary retention inserting Cabrera patient had almost 600 mL out his UA came back very positive patient was diagnosed with sepsis UTI obstructive uropathy and acute renal failure was started on IV hydration IV antibiotics we'll consult nephrology and admit patient to the hospital for the above problem. Patient has been seen by Dr. Presley with recommendations to maintain Cabrera catheter, check PSA. He has been afebrile, heart rate 78, blood pressure 118/67, pulse ox 98% on room air. Repeat lab work reveals to WBC 7.8, hemoglobin 7.7. BUN 55 and creatinine 2.43. CO2 remains at 19. The patient is currently on Rocephin. Initial urine was a poor specimen and repeat urine culture ordered. Blood culture is status post received. The patient resides at [facility] and will be returning there at the time of discharge. Physical therapy added. 01/18: Patient is doing well his kidney function improved significantly still on hydration. Sadly his UA still showing sign of leukocytosis and white blood cell patient will be seen infectious disease and will add Levaquin to his medication at this point still waiting for urine culture. We will do PTOT and add infectious disease to the service less repeat lab by tomorrow. Hemoglobin is slightly bit low but no need for transfusion. Objective - Vital Signs Vital signs: Vital Signs Temp 97.3 F L 01/18/19 12:17 Pulse 64 01/18/19 12:17 Resp 16 01/18/19 12:17 BP 150/73 01/18/19 12:17 Pulse Ox 95 01/18/19 12:17 Intake & Output 01/17/19 01/18/19 01/18/19 18:59 06:59 18:59 Intake Total 500 Output Total 1125 500 750 Balance -1125 0 -750 Weight 83.915 kg Intake: Oral 500 Output: Urine 1125 500 750 Other: Voiding Method Indwelling Catheter Indwelling Catheter Indwelling Catheter # Bowel Movements 1 - Exam - Exam Review of Systems CONSTITUTIONAL: Well-developed no acute respiratory distress. Confuse. EYES: No icterus sclerae, no conjunctivitis. EARS, NOSE, MOUTH, THROAT, and FACE: No sore throat, lymphadenopathy, carotid bruits or deformity. RESPIRATORY: No SOB cough or wheezes. CARDIOVASCULAR: No chest pain positive mild palpitation positive PND or and orthopnea positive edema. GASTROINTESTINAL: No Abd pain, Nausea or vomiting, no Diarrhea or constipation, No GI Bleed, no distention or masses. GENITOURINARY: Recurrent infection with history of prostate cancer post radiation therapy over 15 years ago, patient still have urinary retention and frequency with mild incontinence. INTEGUMENT/BREAST: Negative for any muscular injury with mild osteoarthritis.. HEMATOLOGIC/LYMPHATIC: Negative for bleed or purpura. MUSCULOSKELTAL: Negative for Myalgia or arthralgia. NEURLOGICAL: Positive memory loss. BEHAVIORAL/PSYCH: Negative. ENDOCRINE: Negative. General Appearance: Alert, cooperative, no distress, appears stated age. Neck HEENT: Supple, no lymphadenopathy, no thyroid enlargement, no carotid bruits. Lungs: Clear to auscultation without crackles or wheezes no rhonchi, no deformity. Chest Wall: Chest wall normal expansion with deep inspiration no tenderness and no deformity was found on exam. Heart: Regular rate and rhythm, S1, S2 normal, positive straight positive JVD. Back: Symmetric, no curvature, ROM normal, no CVA tenderness. Abdomen: Soft distended with slight discomfort and lower abdominal region area no rebound rigidity no masses. Cabrera catheter with erasmo urine. Extremities: Extremities normal, atraumatic, positive bilateral lower extremity arthritis with slight discoloration from the knee down. Trace edema. Pulses: 1+ and symmetric. Skin: Skin color, texture, tugor normal, no rashes or lesions. Neurologic: Alert oriented x2 cranial nerves II through XII intact, no motor deficit, no abnormal balance or gait. Mild memory loss. - Labs CBC & Chem 7: 01/18/19 08:37 01/18/19 08:37 Labs: Abnormal Lab Results - Last 24 Hours (Table) 01/17/19 01/18/19 01/18/19 Range/Units 13:00 08:37 08:37 RBC 2.37 L (4.30-5.90) m/uL Hgb 7.5 L (13.0-17.5) gm/dL Hct 23.2 L (39.0-53.0) % Chloride 113 H (98-107) mmol/L Carbon Dioxide 19 L (22-30) mmol/L BUN 46 H (9-20) mg/dL Creatinine 2.09 H (0.66-1.25) mg/dL Glucose 108 H (74-99) mg/dL Urine Protein 1+ H (Negative) Urine Blood Moderate H (Negative) Ur Leukocyte Esterase Large H (Negative) Urine RBC 16 H (0-5) /hpf Urine WBC >182 H (0-5) /hpf Urine WBC Clumps Many H (None) /hpf Amorphous Sediment Occasional H (None) /hpf Urine Bacteria Moderate H (None) /hpf Urine Mucus Few H (None) /hpf Microbiology - Last 24 Hours (Table) 01/17/19 13:00 Urine Culture - Preliminary Urine,Voided 01/16/19 15:40 Blood Culture - Preliminary Blood No Growth after 24 hours Assessment and Plan Plan: 1 acute kidney failure: Most likely from obstructive uropathy causing bilateral hydronephrosis, continue indwelling catheter, and nephrology consultation repeat BUN/creatinine next 24 hours continue hydration. We can stop hydration today his kidney function is much better. 2 bilateral hydronephrosis: Still have an indwelling catheter was seen urology and patient will benefit from going for cystoscopy in the next 2 weeks. 3 sepsis and urinary tract infection: Was still on Rocephin did not clear the infection completely we'll consult infectious disease and add Levaquin at this point still waiting for the final urine culture. 4 Parkinson disease: Has been on Sinemet and Requip continue both medication. 5 chronic back pain: Has been on baclofen and Tylenol No. 3 as needed. 6 hyperlipidemia: On Pravachol. 7 hypothyroidism: Continue levothyroxine 112 g daily. 8 history of prostate cancer post radiation still on Proscar and Flomax. 9 chronic depression: Has been on Zoloft. 10 iron deficiency anemia: Remain on iron supplement daily. 11 chronic pain syndrome: Remain on Tylenol No. 3 and baclofen as needed. 12 GI prophylaxis/severe GERD: Continue pantoprazole at 40 mg daily. Discharge planning: Will add PTOT and social service patient might benefit from going to rehab for 2 weeks till the indwelling catheter is out until had his cystoscopy and the kidney function improved.
[2019-01-18 13:06] LABS: Appearance,Urine Cloudy (Clear); Bilirubin,Urine Negative (Negative); Blood,Urine Moderate (Negative); Color,Urine Light Yellow; Glucose,Urine (UA) Negative (Negative); Ketones,Urine Negative (Negative); Leukocyte Esterase,Urine Large (Negative); Nitrite,Urine Negative (Negative); PH, Urine 5.5 (5.0-8.0); Protein,Urine 2+ (Negative); RBC,Urine 23 /hpf (0-5); Specific Gravity,Urine 1.009 (1.001-1.035); Urobilinogen,Urine <2.0 mg/dL (<2.0); WBC,Urine 75 /hpf (0-5)
[2019-01-18] MEDS: ASCORBIC ACID 500 MG TAB PO SCH (17:56)
[2019-01-18] MEDS: FOLIC ACID 1 MG TAB PO SCH (17:56)
[2019-01-18] MEDS: ASPIRIN 81 MG PO SCH (17:56)
[2019-01-18] MEDS: SERTRALINE 100 MG TAB PO SCH (19:40)
[2019-01-18] MEDS: MELATONIN 5 MG TABLET PO SCH (19:40)
[2019-01-18] MEDS: TAMSULOSIN 0.4 MG CAP.ER.24H PO SCH (19:40)
[2019-01-18] MEDS: PRAVASTATIN SODIUM 40 MG TAB PO SCH (19:40)
[2019-01-18] MEDS: FINASTERIDE 5 MG TAB PO SCH (21:15)
[2019-01-19] MEDS: LEVOTHYROXINE 112 MCG TAB PO SCH (05:54)
[2019-01-19 06:24] VITALS: BP 149/70; PULSE 62; RESP 18; TEMP 97.1
[2019-01-19 09:20] LABS: Basophils % (A) 1 %; Eosinophils # (A) 0.1 k/uL (0-0.7); Eosinophils % (A) 2 %; HCT 24.6 % (39.0-53.0); HGB 7.8 gm/dL (13.0-17.5); Lymphocytes # (A) 0.9 k/uL (1.0-4.8); Lymphocytes % (A) 14 %; MCH 31.3 pg (25.0-35.0); MCHC 31.8 g/dL (31.0-37.0); MCV 98.6 fL (80.0-100.0); Mean Platelet Volume 6.5; Monocytes # (A) 0.3 k/uL (0-1.0); Monocytes % (A) 5 %; Neutrophils # (A) 5.1 k/uL (1.3-7.7); Neutrophils % (A) 77 %; Platelet Count 186 k/uL (150-450); RDW 14.8 % (11.5-15.5); WBC 6.6 k/uL (3.8-10.6)
[2019-01-19 09:33] LABS: ALT <6 U/L (21-72); AST 13 U/L (17-59); African American GFR (CKD) 34 (>60 ml/min/1.73 sqM); Albumin 3.2 g/dL (3.5-5.0); Alkaline Phosphatase 70 U/L (38-126); Anion Gap 10 mmol/L; Blood Urea Nitrogen 41 mg/dL (9-20); Calcium 8.6 mg/dL (8.4-10.2); Carbon Dioxide 20 mmol/L (22-30); Chloride 112 mmol/L (98-107); Glucose 151 mg/dL (74-99); Potassium 3.5 mmol/L (3.5-5.1); Sodium 142 mmol/L (137-145); Total Bilirubin 0.2 mg/dL (0.2-1.3); Total Protein 6.6 g/dL (6.3-8.2)
[2019-01-19] MEDS: KETOROLAC 0.5% OPHTH DROPS 5 ML BTL RIGHT EYE SCH (09:46)
[2019-01-19] MEDS: CYANOCOBALAMIN 500 MCG TAB PO SCH (09:49)
[2019-01-19] MEDS: FERROUS SULFATE 325 MG TAB PO SCH (09:49)
[2019-01-19] MEDS: PANTOPRAZOLE 40 MG TABLET PO SCH (09:49)
[2019-01-19] MEDS: METOPROLOL TARTRATE 12.5 MG TAB PO SCH (09:49)
[2019-01-19] MEDS: LEVOFLOXACIN 250 MG TAB PO SCH (09:49)
[2019-01-19] MEDS: CARBIDOPA-LEVODOPA 25-100 MG 1 EACH TAB PO SCH ×2 (09:49→13:15)
--- NOTE | 2019-01-19 12:31 | P.DS ---
Providers Date of admission: 01/16/19 16:44 Attending physician: Isma Bolivar Consults: 01/16/19 16:44 Consult Physician Urgent Consulting Provider: Alberto Falcon Consult Reason/Comments: Hydronephrosis Do you want consulting provider notified?: Already Contacted 01/18/19 12:00 Consult Physician Routine Consulting Provider: Isma Maria Reason/Comments: UTI witout clearance Do you want consulting provider notified?: Yes Primary care physician: Arsalan Lopez Hospital Course: Principal diagnosis: Acute kidney failure, bilateral hydronephrosis, sepsis with UTI, Parkinson disease, history of prostate cancer and iron deficiency anemia. 88-year-old male one of Dr. Lopez's patient with past medical history of Parkinson disease, Atherosclerosis heart disease, hypertension, hyperlipidemia and hypothyroidism who had history of prostate cancer post radiation seeds back in 2009. Patient was seen Dr. Lopez recently and found to have significantly elevated creatinine and BUN compared to before. His per prostate exam and assessment showed mildly elevated PSA ended 2-3 level with no sign of recurrent prostate cancer patient was sent for ultrasound of the kidney showed bilateral hydronephrosis. Was sent to the emergency department where was seen and evaluated apparently for the last 2 weeks has not been feeling well running low-grade temperature having difficulty in urination with frequency urgency hesitancy and dribbling only with smaller amount of urine when he voids. Found to have significant urinary retention inserting Cabrera patient had almost 600 mL out his UA came back very positive patient was diagnosed with sepsis UTI obstructive uropathy and acute renal failure was started on IV hydration IV antibiotics we'll consult nephrology and admit patient to the hospital for the above problem. Patient has been seen by Dr. Presley with recommendations to maintain Cabrera catheter, check PSA. He has been afebrile, heart rate 78, blood pressure 118/67, pulse ox 98% on room air. Repeat lab work reveals to WBC 7.8, hemoglobin 7.7. BUN 55 and creatinine 2.43. CO2 remains at 19. The patient is currently on Rocephin. Initial urine was a poor specimen and repeat urine culture ordered. Blood culture is status post received. The patient resides at [facility] and will be returning there at the time of discharge. Physical therapy added. 01/18: Patient is doing well his kidney function improved significantly still on hydration. Sadly his UA still showing sign of leukocytosis and white blood cell patient will be seen infectious disease and will add Levaquin to his medication at this point still waiting for urine culture. We will do PTOT and add infectious disease to the service less repeat lab by tomorrow. Hemoglobin is slightly bit low but no need for transfusion. 01/19: Patient had responded very well to Levaquin the last 24 hours, he is seen Dr. Maria infectious disease today and if agreeable will be going home on oral antibiotic if not might need an arrangement for PICC line for longer term IV antibiotics. Surprisingly I thought the culture was reported as Pseudomonas from yesterday but it's coming back positive for MSSA which will be easy to treat with oral antibiotic Dr. Maria added Ceftin 2 Levaquin to complete total of 2 weeks. - Exam Review of Systems CONSTITUTIONAL: Well-developed no acute respiratory distress. Confuse. EYES: No icterus sclerae, no conjunctivitis. EARS, NOSE, MOUTH, THROAT, and FACE: No sore throat, lymphadenopathy, carotid bruits or deformity. RESPIRATORY: No SOB cough or wheezes. CARDIOVASCULAR: No chest pain positive mild palpitation positive PND or and orthopnea positive edema. GASTROINTESTINAL: No Abd pain, Nausea or vomiting, no Diarrhea or constipation, No GI Bleed, no distention or masses. GENITOURINARY: Recurrent infection with history of prostate cancer post radiation therapy over 15 years ago, patient still have urinary retention and frequency with mild incontinence. INTEGUMENT/BREAST: Negative for any muscular injury with mild osteoarthritis.. HEMATOLOGIC/LYMPHATIC: Negative for bleed or purpura. MUSCULOSKELTAL: Negative for Myalgia or arthralgia. NEURLOGICAL: Positive memory loss. BEHAVIORAL/PSYCH: Negative. ENDOCRINE: Negative. General Appearance: Alert, cooperative, no distress, appears stated age. Neck HEENT: Supple, no lymphadenopathy, no thyroid enlargement, no carotid bruits. Lungs: Clear to auscultation without crackles or wheezes no rhonchi, no deformity. Chest Wall: Chest wall normal expansion with deep inspiration no tenderness and no deformity was found on exam. Heart: Regular rate and rhythm, S1, S2 normal, positive straight positive JVD. Back: Symmetric, no curvature, ROM normal, no CVA tenderness. Abdomen: Soft distended with slight discomfort and lower abdominal region area no rebound rigidity no masses. Cabrera catheter with erasmo urine. Extremities: Extremities normal, atraumatic, positive bilateral lower extremity arthritis with slight discoloration from the knee down. Trace edema. Pulses: 1+ and symmetric. Skin: Skin color, texture, tugor normal, no rashes or lesions. Neurologic: Alert oriented x2 cranial nerves II through XII intact, no motor deficit, no abnormal balance or gait. Mild memory loss. Assessment and Plan Plan: 1 acute kidney failure: Most likely from obstructive uropathy causing bilateral hydronephrosis, continue indwelling catheter, and nephrology consultation repeat BUN/creatinine next 24 hours continue hydration. We can stop hydration today his kidney function is much better. 2 bilateral hydronephrosis: Still have an indwelling catheter was seen urology and patient will benefit from going for cystoscopy in the next 2 weeks. 3 sepsis and urinary tract infection: Was still on Rocephin did not clear the infection completely we'll consult infectious disease and add Levaquin and with the culture been MSSA also Ceftin was added without any other antibiotic no need for IV antibiotic this point. 4 Parkinson disease: Has been on Sinemet and Requip continue both medication. 5 chronic back pain: Has been on baclofen and Tylenol No. 3 as needed. 6 hyperlipidemia: On Pravachol. 7 hypothyroidism: Continue levothyroxine 112 g daily. 8 history of prostate cancer post radiation still on Proscar and Flomax. 9 chronic depression: Has been on Zoloft. 10 iron deficiency anemia: Remain on iron supplement daily. 11 chronic pain syndrome: Remain on Tylenol No. 3 and baclofen as needed. Discharge planning: Patient be discharge back to [facility] today with extra help final antibiotic is combination of Levaquin and Ceftin for total of 2 weeks . Plan - Discharge Summary New Discharge Prescriptions: New Levofloxacin [Levaquin] 250 mg PO DAILY 10 Days tablet Cefuroxime Axetil [Ceftin] 500 mg PO BID #28 tab Continue Carbidopa-Levodopa 25-100 mg [Sinemet 25-100 mg] 1 tab PO TID@0800,1400,2000 Pravastatin Sodium [Pravachol] 40 mg PO HS@2000 Finasteride [Proscar] 5 mg PO HS Sertraline [Zoloft] 150 mg PO HS@2000 Aspirin EC [Ecotrin Low Dose] 81 mg PO DAILY@1700 Melatonin 5 mg PO HS@2000 Pantoprazole [Protonix] 40 mg PO BID@0800,1700 Nitroglycerin Sl Tabs [Nitrostat] 0.4 mg SUBLINGUAL Q5M PRN PRN Reason: Chest Pain Fluticasone Nasal [place] [Flonase Nasal [place]] 1 spray EA NOSTRIL BID PRN PRN Reason: Allergy Symptoms Acetaminophen [Tylenol Arthritis] 650 mg PO Q4H PRN PRN Reason: Pain rOPINIRole HCL [Requip] 0.5 mg PO HS@1999 Metoprolol Tartrate [Lopressor] 12.5 mg PO BID@0800,1700 Loratadine [Claritin] 10 mg PO DAILY@0800 Folic Acid 1 mg PO DAILY@1700 Polyethylene Glycol 3350 [Miralax] 17 gm PO DAILY PRN PRN Reason: Constipation Cyanocobalamin (Vitamin B-12) [Vitamin B-12] 1,000 mcg PO DAILY@0800 Tamsulosin HCl [Flomax] 0.4 mg PO DAILY@1999 Levothyroxine Sodium [Synthroid] 112 mcg PO DAILY@0800 Ketorolac 0.5% Ophth Soln [Acular 0.5%] 1 drop RIGHT EYE BID@0800,1999 Ferrous Sulfate [Iron] 325 mg PO DAILY@0800 Ascorbic Acid [Vitamin C] 500 mg PO DAILY@1700 Baclofen [Lioresal] 10 mg PO TID PRN PRN Reason: Muscle Spasm Acetaminophen-Codeine 300-30mg [Tylenol w/codeine #3] 1 tab PO Q6HR PRN #18 tab PRN Reason: Moderate Pain Discharge Medication List Carbidopa-Levodopa 25-100 mg [Sinemet 25-100 mg] 1 tab PO TID@0800,1400,1999 [History] Finasteride [Proscar] 5 mg PO HS 12/04/15 [History] Pravastatin Sodium [Pravachol] 40 mg PO HS@199912/04/15 [History] Sertraline [Zoloft] 150 mg PO HS@199905/08/16 [History] Aspirin EC [Ecotrin Low Dose] 81 mg PO DAILY@1700 08/17/17 [History] Melatonin 5 mg PO HS@199908/17/17 [History] Nitroglycerin Sl Tabs [Nitrostat] 0.4 mg SUBLINGUAL Q5M PRN 08/17/17 [History] Pantoprazole [Protonix] 40 mg PO BID@0800,1700 08/17/17 [History] Acetaminophen [Tylenol Arthritis] 650 mg PO Q4H PRN 07/27/18 [History] Fluticasone Nasal [place] [Flonase Nasal [place]] 1 spray EA NOSTRIL BID PRN 07/27 [History] Folic Acid 1 mg PO DAILY@1700 07/27/18 [History] Loratadine [Claritin] 10 mg PO DAILY@0800 07/27/18 [History] Metoprolol Tartrate [Lopressor] 12.5 mg PO BID@0800,1700 07/27/18 [History] Polyethylene Glycol 3350 [Miralax] 17 gm PO DAILY PRN 07/27/18 [History] rOPINIRole HCL [Requip] 0.5 mg PO HS@199907/27/18 [History] Ascorbic Acid [Vitamin C] 500 mg PO DAILY@1700 01/16/19 [History] Baclofen [Lioresal] 10 mg PO TID PRN 01/16/19 [History] Cyanocobalamin (Vitamin B-12) [Vitamin B-12] 1,000 mcg PO DAILY@0800 01/16/19 [History] Ferrous Sulfate [Iron] 325 mg PO DAILY@0800 01/16/19 [History] Ketorolac 0.5% Ophth Soln [Acular 0.5%] 1 drop RIGHT EYE BID@0800,199901/16/19 [History] Levothyroxine Sodium [Synthroid] 112 mcg PO DAILY@0800 01/16/19 [History] Tamsulosin HCl [Flomax] 0.4 mg PO DAILY@199901/16/19 [History] Acetaminophen-Codeine 300-30mg [Tylenol w/codeine #3] 1 tab PO Q6HR PRN #18 tab 01/19/19 [Rx] Cefuroxime Axetil [Ceftin] 500 mg PO BID #28 tab 01/19/19 [Rx] Levofloxacin [Levaquin] 250 mg PO DAILY 10 Days tablet 01/19/19 [Rx] Follow up Appointment(s)/Referral(s): Arsalan Lopez MD [Primary Care Provider] - 1 Week (Son to schedule ) Alberto Falcon MD [STAFF PHYSICIAN] - 10 Days (Outpatient cystoscopy- son wishes to schedule. ) Patient Instructions/Handouts: Urinary Tract Infection in Men (DC) Activity/Diet/Wound Care/Special Instructions: [facility] will transport back to their facility. Regular diet. Up with lift, fall precautions. Change position every 2 hours. Barrier cream to bottom. MRSA precautions. Discharge Disposition: HOME WITH HOME HEALTH SERVICES
[2019-01-19] MEDS: BACLOFEN 10 MG TAB PO PRN (13:13)
[2019-01-19] MEDS: ACETAMINOPHEN TAB 325 MG TAB PO PRN (13:15)
--- NOTE | 2019-01-19 22:46 | P.CONS ---
History of Present Illness - Reason for Consult Consult date: 01/19/19 - Chief Complaint Renal failure - History of Present Illness 88-year-old male who has a long-standing history of Parkinson's and dementia he was having outpatient evaluation with an evidence of an acute elevation of BUN/creatinine with ultrasound showing evidence of bilateral hydronephrosis. He has no history of prostate cancer without evidence of acute. However appears to be having some difficulties with bowel obstruction resulting in the bilateral hydronephrosis failure. The patient is a 29 having improvement however urinalysis was abnormal with many white cells and bacteria in urine culture now shows evidence of staph aureus. With these concerns the infectious diseases consultation was requested. The patient does have a history of prior urinary infections apparently the laboratory last culture was with Pseudomonas. Not been found yet at this point in time. The patient is quite a poor historian further information is from the chart.. Review of Systems HEENT:Denies headache or acute visual change. Denies sinus or mouth discomforts. Denies neck stiffness or pain. Denies significant oral cavity pain. Denies difficulty on swallowing. Lungs: Denies significant shortness of breath, cough, sputum production, or hemoptysis. Cardiovascular: Denies significant shortness of breath, chest pain, chest wall pain, orthopnea, dyspnea on exertion, syncope Gastrointestinal:Denies nausea, vomiting, diarrhea, constipation, hematemesis, m arline, hematochezia. No no significant change of bowel habit noticed. Musculoskeletal: denies significant myalgias or arthralgias. No new joint swelling. Denies new back pain. Skin: Denies new rash or lesions. No new ulcers or wounds are related.. Neuro: With his Parkinson's he has difficulties with daily activity and does stay and later on once. 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 wheelchair on community ambulation,. No history of smoking. 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 He was stationed in [place]. He was in the [employer]. No animal exposures. , adult daughter and son are is decision- makers Smoking Status: Never smoker Past Alcohol Use History: None Reported Additional Past Alcohol Use History / Comment(s): Patient resides at [facility] and uses wheelchair in the community. No history of smoking. 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 He was stationed in [place]. He was in the [employer]. No animal exposures. Past Drug Use History: None Reported - Past Family History Father Family Medical History: GI Bleed Mother Family Medical History: Cancer Additional Family Medical History / Comment(s): stomach cancer Medications and Allergies Home Medications and Allergies Comment(s): Please see the medication list Home Medications Medication Instructions Recorded Confirmed Type Carbidopa-Levodopa 25-100 mg 1 tab PO TID@0800,1400,199912/04/15 01/16/19 History [Sinemet 25-100 mg] Finasteride [Proscar] 5 mg PO HS 12/04/15 01/16/19 History Pravastatin Sodium [Pravachol] 40 mg PO HS@199912/04/15 01/16/19 History Sertraline [Zoloft] 150 mg PO HS@199905/08/16 01/16/19 History Aspirin EC [Ecotrin Low Dose] 81 mg PO DAILY@169908/17/17 01/16/19 History Melatonin 5 mg PO HS@199908/17/17 01/16/19 History Nitroglycerin Sl Tabs [Nitrostat] 0.4 mg SUBLINGUAL Q5M PRN 08/17/17 01/16/19 History Pantoprazole [Protonix] 40 mg PO BID@0800,1700 08/17/17 01/16/19 History Acetaminophen [Tylenol Arthritis] 650 mg PO Q4H PRN 07/27/18 01/16/19 History Fluticasone Nasal [place] [Flonase 1 spray EA NOSTRIL BID PRN 07/27/18 01/16/19 History Nasal [place]] Folic Acid 1 mg PO DAILY@1700 07/27/18 01/16/19 History Loratadine [Claritin] 10 mg PO DAILY@0800 07/27/18 01/16/19 History Metoprolol Tartrate [Lopressor] 12.5 mg PO BID@0800,1700 07/27/18 01/16/19 History Polyethylene Glycol 3350 [Miralax] 17 gm PO DAILY PRN 07/27/18 01/16/19 History rOPINIRole HCL [Requip] 0.5 mg PO HS@199907/27/18 01/16/19 History Ascorbic Acid [Vitamin C] 500 mg PO DAILY@1700 01/16/19 01/16/19 History Baclofen [Lioresal] 10 mg PO TID PRN 01/16/19 01/16/19 History Cyanocobalamin (Vitamin B-12) 1,000 mcg PO DAILY@0800 01/16/19 01/16/19 History [Vitamin B-12] Ferrous Sulfate [Iron] 325 mg PO DAILY@0800 01/16/19 01/16/19 History Ketorolac 0.5% Ophth Soln [Acular 1 drop RIGHT EYE BID@0800,199901/16/19 01/16/19 History 0.5%] Levothyroxine Sodium [Synthroid] 112 mcg PO DAILY@0800 01/16/19 01/16/19 History Tamsulosin HCl [Flomax] 0.4 mg PO DAILY@199901/16/19 01/16/19 History Acetaminophen-Codeine 300-30mg 1 tab PO Q6HR PRN #18 tab 01/19/19 Rx [Tylenol w/codeine #3] Cefuroxime Axetil [Ceftin] 500 mg PO BID #28 tab 01/19/19 Rx Levofloxacin [Levaquin] 250 mg PO DAILY 10 Days tablet 01/19/19 Rx Allergies Allergy/AdvReac Type Severity Reaction Status Date / Time No Known Allergies Allergy Verified 01/16/19 14:17 Physical Exam Vitals: Vital Signs Temp Pulse Resp BP Pulse Ox 01/19/19 08:00 18 01/19/19 04:37 97.1 F L 62 18 149/70 96 Intake and Output 01/19/19 01/19/19 01/19/19 06:59 14:59 22:59 Intake Total 750 320 Output Total 300 Balance 450 320 Intake: Intake, IV Titration 750 Amount Sodium Chloride 0.9% 1, 750 000 ml @ 75 mls/hr IV . [id number] [facility] Rx#:[id number] Oral 320 Output: Urine 300 Straight 300 88-year-old male comfortable HEENT: Anicteric conjunctiva are pink and moist nasal mucosa grossly intact without significant lesions, there is no thrush. Neck: The neck is supple without significant lymphadenopathy or thyromegaly. Lungs: Good bilateral air entry without significant crackles or wheezing. There is no significant bronchial sounds. There is no egophony or dullness. Heart: Regular rate and rhythm with an audible S1-S2, no S3 no S4. There is no significant murmur click or rub, PMI was nondisplaced. Abdomen: Positive bowel sounds soft and nontender without palpable masses or organomegaly. There was no guarding or rebound. No flank tenderness. Extremities: The upper extremities have excellent pulses they are symmetric, no significant petechiae or telangiectasia. No splinter hemorrhages were noted. The lower extremities are free from significant edema. The peripheral pulses were 2+ and symmetric. Neuro: Awake alert oriented to person is evidence of some abnormal motions but does not have severe parkinsonian tremor at this time. His mentation is noted is poor but is able to move upper and lower extremities. Results CBC & Chem 7: 01/19/19 08:27 01/19/19 08:27 Labs: Abnormal Lab Results - Last 24 Hours (Table) 01/19/19 01/19/19 Range/Units 08:27 08:27 RBC 2.50 L (4.30-5.90) m/uL Hgb 7.8 L (13.0-17.5) gm/dL Hct 24.6 L (39.0-53.0) % Lymphocytes # 0.9 L (1.0-4.8) k/uL Chloride 112 H (98-107) mmol/L Carbon Dioxide 20 L (22-30) mmol/L BUN 41 H (9-20) mg/dL Creatinine 1.98 H (0.66-1.25) mg/dL Glucose 151 H (74-99) mg/dL AST 13 L (17-59) U/L ALT <6 L (21-72) U/L Albumin 3.2 L (3.5-5.0) g/dL Microbiology - Last 24 Hours (Table) 01/17/19 13:00 Urine Culture - Final Urine,Voided Methicillin resist S. aureus 01/16/19 15:40 Blood Culture - Preliminary Blood No Growth after 72 hours Laboratory Results WBC 6.6 k/uL (3.8-10.6) 01/19/19 08:27 RBC 2.50 m/uL (4.30-5.90) L 01/19/19 08:27 Hgb 7.8 gm/dL (13.0-17.5) L 01/19/19 08:27 Hct 24.6 % (39.0-53.0) L 01/19/19 08:27 MCV 98.6 fL (80.0-100.0) 01/19/19 08:27 MCH 31.3 pg (25.0-35.0) 01/19/19 08:27 MCHC 31.8 g/dL (31.0-37.0) 01/19/19 08:27 RDW 14.8 % (11.5-15.5) 01/19/19 08:27 Plt Count 186 k/uL (150-450) 01/19/19 08:27 Neutrophils % 77 % 01/19/19 08:27 Lymphocytes % 14 % 01/19/19 08:27 Monocytes % 5 % 01/19/19 08:27 Eosinophils % 2 % 01/19/19 08:27 Basophils % 1 % 01/19/19 08:27 Neutrophils # 5.1 k/uL (1.3-7.7) 01/19/19 08:27 Lymphocytes # 0.9 k/uL (1.0-4.8) L 01/19/19 08:27 Monocytes # 0.3 k/uL (0-1.0) 01/19/19 08:27 Eosinophils # 0.1 k/uL (0-0.7) 01/19/19 08:27 Basophils # 0.0 k/uL (0-0.2) 01/19/19 08:27 Macrocytosis Slight 01/17/19 08:20 Sodium 142 mmol/L (137-145) 01/19/19 08:27 Potassium 3.5 mmol/L (3.5-5.1) 01/19/19 08:27 Chloride 112 mmol/L (98-107) H 01/19/19 08:27 Carbon Dioxide 20 mmol/L (22-30) L 01/19/19 08:27 Anion Gap 10 mmol/L 01/19/19 08:27 BUN 41 mg/dL (9-20) H 01/19/19 08:27 Creatinine 1.98 mg/dL (0.66-1.25) H 01/19/19 08:27 Est GFR (CKD-EPI)AfAm 34 (>60 ml/min/1.73 sqM) 01/19/19 08:27 Est GFR (CKD-EPI)NonAf 29 (>60 ml/min/1.73 sqM) 01/19/19 08:27 Glucose 151 mg/dL (74-99) H 01/19/19 08:27 Plasma Lactic Acid Rene 0.9 mmol/L (0.7-2.0) 01/16/19 15:40 Calcium 8.6 mg/dL (8.4-10.2) 01/19/19 08:27 Magnesium 1.6 mg/dL (1.6-2.3) 01/18/19 08:30 Total Bilirubin 0.2 mg/dL (0.2-1.3) 01/19/19 08:27 AST 13 U/L (17-59) L 01/19/19 08:27 ALT <6 U/L (21-72) L 01/19/19 08:27 Alkaline Phosphatase 70 U/L (38-126) 01/19/19 08:27 Total Protein 6.6 g/dL (6.3-8.2) 01/19/19 08:27 Albumin 3.2 g/dL (3.5-5.0) L 01/19/19 08:27 Free PSA TNP 01/17/19 08:20 % Free PSA TNP 01/17/19 08:20 Total PSA <0.1 ng/mL (<=4.0) 01/17/19 08:20 Urine Color Light Yellow 01/18/19 12:28 Urine Appearance Cloudy (Clear) 01/18/19 12:28 Urine pH 5.5 (5.0-8.0) 01/18/19 12:28 Ur Specific Petros 1.009 (1.001-1.035) 01/18/19 12:28 Urine Protein 2+ (Negative) H 01/18/19 12:28 Urine Glucose (UA) Negative (Negative) 01/18/19 12:28 Urine Ketones Negative (Negative) 01/18/19 12:28 Urine Blood Moderate (Negative) H 01/18/19 12:28 Urine Nitrite Negative (Negative) 01/18/19 12:28 Urine Bilirubin Negative (Negative) 01/18/19 12:28 Urine Urobilinogen <2.0 mg/dL (<2.0) 01/18/19 12:28 Ur Leukocyte Esterase Large (Negative) H 01/18/19 12:28 Urine RBC 23 /hpf (0-5) H 01/18/19 12:28 Urine WBC 75 /hpf (0-5) H 01/18/19 12:28 Urine WBC Clumps Many /hpf (None) H 01/17/19 13:00 Ur Squamous Epith Cells 36 /hpf (0-4) H 01/16/19 15:07 Amorphous Sediment Occasional /hpf (None) H 01/17/19 13:00 Urine Bacteria Moderate /hpf (None) H 01/17/19 13:00 Hyaline Casts 26 /lpf (0-2) H 01/16/19 15:07 Urine Mucus Few /hpf (None) H 01/17/19 13:00 Microbiology 01/17/19 13:00 Urine,Voided Urine Culture - Final Methicillin resist S. aureus 01/16/19 15:40 Blood Blood Culture - Preliminary No Growth after 72 hours Assessment and Plan (1) UTI (urinary tract infection) Narrative/Plan: 88-year-old presents to Hospital after being found to have evidence of worsening renal failure in the outpatient setting. Ultrasound also revealed evidence of obstructive uropathy with bilateral hydronephrosis. He is seen by urology is noted that this is not a significantly new finding. In with intervention so far his creatinine is improving he is feeling better is being ready for discharge back to extended care. However antibiotic therapy is requested literatures revealing evidence of MSSA and with his renal failure will be able to utilize a second generation oral cephalosporin which will penetrate into the prostatic tissue which is a likely source of some recurrent infection at this time. Consideration for trimethoprim sulfamethoxazole was given a given his elevated creatinine concerns to worsening renal function and increased potassium intake as it was not chosen. There is also the possibility if needed of transitioning to doxycycline therapy which also has adequate penetration into prostatic tissue. Status: Acute Code(s): N39.0 - URINARY TRACT INFECTION, SITE NOT SPECIFIED SNOMED Code(s): 89029391 (2) MSSA (methicillin susceptible Staphylococcus aureus) infection Status: Acute Code(s): A49.01 - METHICILLIN SUSCEP STAPH INFECTION, UNSP SITE SNOMED Code(s): 106805809
--- NOTE | 2019-01-31 14:44 | CDI ---
Documentation Clarification Form Date: 01/31/2019 1:46 pm From: CAITLIN Draper; Francesca John Food Selector Phone: If you have any questions about this query, please contact Francesca John Food Selector at [phone] between 8 am and 5 pm. Admit Date: 01/16/2019 4:44:00 pm Patient Name: Js Poe Visit number: [id number] Discharge date: 01/16/2019 The Clinical Documentation Specialists (CDS) and [facility] Coding Staff appreciate your assistance in clarifying documentation. Please respond to the clarification below the link at the bottom and electronically sign. The CDI [facility] Coding Staff will review the response and follow-up if needed. Please note: Queries are made part of the Legal Health Record. If you have any questions, please contact the author of this message via ITS. Dr. Isma Bolivar, Acute renal failure is documented in the medical record and as a discharge diagnosis. History: Prostate CA, obstructive uropathy. Risk factors/Other underlying illnesses: HX of prostate CA, obstructive uropathy, bilateral hydronephrosis. Clinical indicators: CR: 01/16 2.6; 01/17 2.43; 01/18 2.09; 01/19 1.98 BUN: 01/16 63; 01/17 55; 01/18 46; 01/19 41 Urinalysis: Patient's UA 01/17 showed Hyaline casts 26/ipf (0.2) H Treatment: IV hydration, IV antibiotics for UTI, renal consult Consults: Nephrology for renal failure. In your professional opinion, can you please clarify if the condition can be further specified? Acute Renal Failure with Acute Tubular Necrosis Acute Renal Failure with renal Cortical Necrosis Acute Renal Failure with other specified pathological cause, please specify Acute Renal Failure with other cause, please specify Unable to determine Other, please specify __AKI with ATN SALASD
== END 2019-01-19 14:09 | disposition home health service (06) | DRG 871 ==
LOC: EC 13:37 → 4MS4W 16:44
PROVIDERS: ADMIT Internal Medicine Geriatric Medicine; ATTEND Internal Medicine Geriatric Medicine
DX: A41.9 Sepsis, unspecified organism (principal); N17.0 Acute kidney failure with tubular necrosis; N13.6 Pyonephrosis; B95.61 Methicillin susceptible Staphylococcus aureus infection as the cause of diseases classified elsewhere; D50.9 Iron deficiency anemia, unspecified; E03.9 Hypothyroidism, unspecified; E78.5 Hyperlipidemia, unspecified; F32.9 Major depressive disorder, single episode, unspecified; F41.9 Anxiety disorder, unspecified; G20 Parkinson's disease; I10 Essential (primary) hypertension; K21.9 Gastro-esophageal reflux disease without esophagitis; R32 Unspecified urinary incontinence; Z79.82 Long term (current) use of aspirin; Z79.890 Hormone replacement therapy; Z79.899 Other long term (current) drug therapy; Z80.0 Family history of malignant neoplasm of digestive organs; Z85.46 Personal history of malignant neoplasm of prostate; Z85.828 Personal history of other malignant neoplasm of skin; Z79.51 Long term (current) use of inhaled steroids; G89.4 Chronic pain syndrome
CPT/HCPCS: 36415; 51702; 51798; 80048; 80053; 81001; 83605; 83735; 84153; 85025; 85027; 87040; 87077; 87086; 87186; 96361; 96374; 99285

== ENCOUNTER 2019-04-18 07:58 | Day surgery (SDC) | payer MEDICARE, BC ==
[2019-04-13 11:08] VITALS: BMI 25.0
--- NOTE | 2019-04-17 19:32 | P.GSHP ---
History of Present Illness H&P Date: 04/17/19 The patient is an 88 yo malle who lives at the [facility] due to immobility He has urine retention and failed conservative attempts to liberate him of this He has a diagnosis of prostate cacner treated in 2006 with radium seeds. He remains in remission with a psa <0.1 He underwent a cmg and cysto identifying an obstructing prostate with a functioning bladder I discussed the the patient and family about turp vs sp tube After deliberation the patient and family want a sp tube He comes for a cysto with sp tube cystostomy - Constitutional Constitutional: Denies chills, Denies fever - EENT Eyes: denies blurred vision, denies pain Ears, nose, mouth and throat: Denies headache, Denies sore throat - Cardiovascular Cardiovascular: Denies chest pain, Denies shortness of breath - Respiratory Respiratory: Denies cough, Denies 7 - Gastrointestinal Gastrointestinal: Denies abdominal pain, Denies diarrhea, Denies nausea, Denies vomiting - Genitourinary (Female) Genitourinary: Denies dysuria, Denies hematuria - Genitourinary (Male) Genitourinary: Denies dysuria, Denies hematuria - Musculoskeletal Musculoskeletal: Denies myalgias - Integumentary Integumentary: Denies pruritus, Denies rash - Neurological Neurological: Denies numbness, Denies weakness - Psychiatric Psychiatric: Denies anxiety, Denies depression - Endocrine Endocrine: Denies fatigue, Denies weight change 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 Beginning Parkinson's. History of Any Multi-Drug Resistant Organisms: MRSA Date of last positivie culture/infection: 01/17/19 MDRO Source:: Urine Past Surgical History: Appendectomy, Tonsillectomy Additional Past Surgical History / Comment(s): Radiation seeds 2009, spot of skin cancer removed from head 10/2015, Bilat. Catatract surgery. Past Anesthesia/Blood Transfusion Reactions: No Reported Reaction Smoking Status: Never smoker - Past Family History Father Family Medical History: GI Bleed Mother Family Medical History: Cancer Additional Family Medical History / Comment(s): stomach cancer Medications and Allergies Home Medications Medication Instructions Recorded Confirmed Type Carbidopa-Levodopa 25-100 mg 1 tab PO TID@0800,1400,199912/04/15 04/13/19 History [Sinemet 25-100 mg] Finasteride [Proscar] 5 mg PO HS 12/04/15 04/13/19 History Pravastatin Sodium [Pravachol] 40 mg PO HS@199912/04/15 04/13/19 History Sertraline [Zoloft] 150 mg PO HS@199905/08/16 04/13/19 History Aspirin EC [Ecotrin Low Dose] 81 mg PO DAILY@169908/17/17 04/13/19 History Melatonin 5 mg PO HS@199908/17/17 04/13/19 History Nitroglycerin Sl Tabs [Nitrostat] 0.4 mg SUBLINGUAL Q5M PRN 08/17/17 04/13/19 History Pantoprazole [Protonix] 40 mg PO BID@0800,169908/17/17 04/13/19 History Acetaminophen [Tylenol Arthritis] 650 mg PO Q4H PRN 07/27/18 04/13/19 History Fluticasone Nasal [place] [Flonase 1 spray EA NOSTRIL BID PRN 07/27/18 04/13/19 History Nasal [place]] Folic Acid 1 mg PO DAILY@169907/27/18 04/13/19 History Loratadine [Claritin] 10 mg PO DAILY@0807/27/18 04/13/19 History Metoprolol Tartrate [Lopressor] 12.5 mg PO BID@0800,169907/27/18 04/13/19 History Polyethylene Glycol 3350 [Miralax] 17 gm PO DAILY PRN 07/27/18 04/13/19 History rOPINIRole HCL [Requip] 0.5 mg PO HS@199907/27/18 04/13/19 History Ascorbic Acid [Vitamin C] 500 mg PO DAILY@169901/16/19 04/13/19 History Baclofen [Lioresal] 10 mg PO TID PRN 01/16/19 04/13/19 History Cyanocobalamin (Vitamin B-12) 1,000 mcg PO DAILY@0800 01/16/19 04/13/19 History [Vitamin B-12] Ferrous Sulfate [Iron] 325 mg PO DAILY@0800 01/16/19 04/13/19 History Ketorolac 0.5% Ophth Soln [Acular 1 drop RIGHT EYE BID@0800,199901/16/19 04/13/19 History 0.5%] Levothyroxine Sodium [Synthroid] 112 mcg PO DAILY@0801/16/19 04/13/19 History Tamsulosin HCl [Flomax] 0.4 mg PO DAILY@199901/16/19 04/13/19 History Meclizine [Antivert] 12.5 mg PO DAILY 04/13/19 04/13/19 History Allergies Allergy/AdvReac Type Severity Reaction Status Date / Time No Known Allergies Allergy Verified 04/13/19 10:24 Surgical - Exam - General well developed, well nourished, no distress - Eyes PERRL - ENT decreased hearing - Neck trachea midline - Respiratory normal expansion, normal respiratory effort - Cardiovascular Rhythm: regular - Abdomen Abdomen: soft, non tender - Genitourinary indwelling catheter, phimosis, flat non nodular prostate. - Integumentary no rash, no growths - Neurologic wheel chair,weak - Psychiatric oriented to person Assessment and Plan Assessment: Impression. Urine retention Catheter discomfort. Prostate cacner remission Plan: Cysto with sp cystostomy
[~2019-04-18 07:58] MED LIST: AMPICILLIN 1,000 MG in SODIUM CHLORIDE 0.9% 50 ML IVPB ONE; DEXAMETHASONE SOD PHOSPHATE 10 MG/ML 1 ML VIAL IV ONE; GENTAMICIN 120 MG in SODIUM CHLORIDE 0.9% 100 ML IVPB ONE; LACTATED RINGERS 1,000 ML IV SCH; LIDOCAINE 1% 20 ML VIAL (10MG/ML) FOR IV START INTRADERMA PRN; MORPHINE SULFATE 2 MG/ML SYRINGE IV PRN; ONDANSETRON 4 MG/2 ML VIAL IVP ONE
[2019-04-18] MEDS ORDERED: fentaNYL (PF) 50 MCG/ML 2 ML AMP ONE (08:43)
--- NOTE | 2019-04-18 09:41 | P.OP ---
Date of Procedure: 04/18/19 Preoperative Diagnosis: Urine retention Postoperative Diagnosis: Same Procedure(s) Performed: Cystoscopy with placement of suprapubic cystostomy tube Anesthesia: spinal Surgeon: Alberto Falcon Estimated Blood Loss (ml): 0 Pathology: none sent Condition: stable Disposition: PACU Indications for Procedure: The patient is 88. He lives in the extended care facility, [facility]. He has a chronic indwelling catheter. He has marked irritation of the foreskin and urethral meatus. The family, and patient wish a different method of drainage. We discussed TURP and circumcision versus suprapubic tube. The family and patient desires suprapubic tube. He comes for this procedure. Description of Procedure: The patient is brought to the operating suite. He is given a spinal anesthetic. He's placed lithotomy position with a sterile prep and drape. The Cabrera catheter has been removed. There is rotation and erosion of the flutter on the foreskin and urethral meatus. Cystoscopy Foroblique lens and 19-British sheath identifies a normal urethra. There is lateral lobe obstruction of the prostate. The bladder light heavily trabeculated with cellules. Then pass a curved notched sound into the bladder. It is tented up in the anterior bladder wall. I then make a small incision with a 15 blade over the sound suprapubically. I cut down through the subcutaneous tissue until I feel the sound. I make an incision over the sound and pop the sound through the lateral wall, fascia and subcutaneous tissue. Through the sound a 2-0 silk is passed up. I then pass it through the dilated the suprapubic tube and tied this down. I then pulled the sound and suprapubic tube, 18-British catheter back through the urethra. I then cut the tie removing the sound from the Cabrera catheter. I then pulled the catheter back slowly to the urethra under direct vision with the 19-British cystoscope with Foroblique lens. With the catheter is in the bladder the balloon is insufflated with 10 mL of water. The placement of the catheter is in the anterior bladder wall. It is secured to the skin with 2 2-0 silk. The wound is dressed. The patient's awake and returned recovery in good condition. Blood loss is negligible. He tolerated the procedure well and will be discharged home upon recovery. He'll follow in the office in one month for catheter replacement. His condition is good. The family understands and consents.
[2019-04-18 09:46] VITALS: TEMP 96.8
[2019-04-18 10:51] VITALS: RESP 16
[2019-04-18 11:52] VITALS: BP 138/76; PULSE 62
== END 2019-04-18 11:54 ==
LOC: OR 07:58
PROVIDERS: ATTEND Urology
DX: R33.9 Retention of urine, unspecified (principal); K21.9 Gastro-esophageal reflux disease without esophagitis; E78.5 Hyperlipidemia, unspecified; I10 Essential (primary) hypertension; E07.9 Disorder of thyroid, unspecified; R29.90 Unspecified symptoms and signs involving the nervous system; G20 Parkinson's disease; Z85.46 Personal history of malignant neoplasm of prostate; Z87.19 Personal history of other diseases of the digestive system; Z86.14 Personal history of Methicillin resistant Staphylococcus aureus infection; Z90.49 Acquired absence of other specified parts of digestive tract; Z92.3 Personal history of irradiation; Z80.0 Family history of malignant neoplasm of digestive organs; Z79.82 Long term (current) use of aspirin; Z79.890 Hormone replacement therapy; Z79.899 Other long term (current) drug therapy
CPT/HCPCS: 51102; J1100; J2405; J3010; J1580

== ENCOUNTER 2019-04-20 22:05 | Emergency (ER) | payer MEDICARE, BC ==
[2019-04-20 22:24] VITALS: RESP 18
[2019-04-20 22:42] LABS: Basophils % (A) 1 %; Eosinophils # (A) 0.2 k/uL (0-0.7); Eosinophils % (A) 2 %; HCT 30.3 % (39.0-53.0); HGB 10.4 gm/dL (13.0-17.5); Lymphocytes # (A) 1.8 k/uL (1.0-4.8); Lymphocytes % (A) 20 %; MCH 33.2 pg (25.0-35.0); MCHC 34.4 g/dL (31.0-37.0); MCV 96.6 fL (80.0-100.0); Mean Platelet Volume 7.5; Monocytes # (A) 0.6 k/uL (0-1.0); Monocytes % (A) 6 %; Neutrophils # (A) 6.4 k/uL (1.3-7.7); Neutrophils % (A) 71 %; Platelet Count 166 k/uL (150-450); RBC 3.14 m/uL (4.30-5.90); RDW 13.5 % (11.5-15.5); WBC 9.1 k/uL (3.8-10.6)
[2019-04-20 22:47] LABS: Appearance,Urine Cloudy (Clear); Bacteria,Urine Rare /hpf; Bilirubin,Urine Negative (Negative); Blood,Urine Large (Negative); Color,Urine Light Red; Glucose,Urine (UA) Negative (Negative); Ketones,Urine Negative (Negative); Leukocyte Esterase,Urine Large (Negative); Mucus,Urine Rare /hpf; Nitrite,Urine Negative (Negative); PH, Urine 5.5 (5.0-8.0); Protein,Urine 1+ (Negative); RBC,Urine >182 /hpf (0-5); Specific Gravity,Urine 1.011 (1.001-1.035); Squamous Epithelial Cell,Urine 1 /hpf (0-4); Urobilinogen,Urine <2.0 mg/dL (<2.0); WBC,Urine 91 /hpf (0-5)
[2019-04-20 23:01] LABS: ALT <6 U/L (4-49); AST 15 U/L (17-59); African American GFR (CKD) 41 (>60 ml/min/1.73 sqM); Albumin 3.8 g/dL (3.5-5.0); Alkaline Phosphatase 78 U/L (38-126); Anion Gap 11 mmol/L; Blood Urea Nitrogen 48 mg/dL (9-20); Calcium 8.9 mg/dL (8.4-10.2); Carbon Dioxide 22 mmol/L (22-30); Chloride 105 mmol/L (98-107); Glucose 98 mg/dL (74-99); Non-African American GFR(CKD) 36 (>60 ml/min/1.73 sqM); Potassium 4.5 mmol/L (3.5-5.1); Sodium 138 mmol/L (137-145); Total Bilirubin 0.3 mg/dL (0.2-1.3); Total Protein 6.7 g/dL (6.3-8.2)
[2019-04-20] MEDS ORDERED: SODIUM CHLORIDE 0.9% 500 ML 500 ML IV ONE (23:12)
--- NOTE | 2019-04-21 00:07 | ED ---
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 Today staff at his home noticed that he seemed to be shaking a little bit more than usual despite having gotten his normal home medications. He didn't have any complaints but they did notice some dry blood on the dressing around the suprapubic catheter and contacted EMS for transport to the hospital. Patient denies any acute complaints, states he doesn't really know why he is here. He does state that he asked for Tylenol or the day due to some pain in his left arm which she believes is due to previous IV access. - Related Data Home Medications Medication Instructions Recorded Confirmed Carbidopa-Levodopa 25-100 mg 1 tab PO TID@0800,1400,199912/04/15 04/18/19 [Sinemet 25-100 mg] Finasteride [Proscar] 5 mg PO HS 12/04/15 04/18/19 Pravastatin Sodium [Pravachol] 40 mg PO HS@199912/04/15 04/13/19 Sertraline [Zoloft] 150 mg PO HS@199905/08/16 04/13/19 Aspirin EC [Ecotrin Low Dose] 81 mg PO DAILY@169908/17/17 04/13/19 Melatonin 5 mg PO HS@199908/17/17 04/18/19 Nitroglycerin Sl Tabs [Nitrostat] 0.4 mg SUBLINGUAL Q5M PRN 08/17/17 04/13/19 Pantoprazole [Protonix] 40 mg PO BID@0800,17008/17/17 04/13/19 Acetaminophen [Tylenol Arthritis] 650 mg PO Q4H PRN 07/27/18 04/18/19 Folic Acid 1 mg PO DAILY@0 07/27/18 04/18/19 Loratadine [Claritin] 10 mg PO DAILY@0800 07/27/18 04/18/19 Metoprolol Tartrate [Lopressor] 12.5 mg PO BID@0800,1700 07/27/18 04/18/19 rOPINIRole HCL [Requip] 0.5 mg PO HS@199907/27/18 04/13/19 Ascorbic Acid [Vitamin C] 500 mg PO DAILY@1700 01/16/19 04/13/19 Cyanocobalamin (Vitamin B-12) 1,000 mcg PO DAILY@0800 01/16/19 04/13/19 [Vitamin B-12] Ferrous Sulfate [Iron] 325 mg PO DAILY@0800 01/16/19 04/13/19 Ketorolac 0.5% Ophth Soln [Acular 1 drop RIGHT EYE BID@799,199901/16/19 04/13/19 0.5%] Levothyroxine Sodium [Synthroid] 112 mcg PO DAILY@0800 01/16/19 04/18/19 Tamsulosin HCl [Flomax] 0.4 mg PO DAILY@199901/16/19 04/13/19 Meclizine [Antivert] 12.5 mg PO DAILY 04/13/19 04/18/19 Baclofen 5 mg PO ONCE 04/18/19 04/18/19 Fluticasone Nasal [place] [Flonase 2 spr EA NOSTRIL DAILY 04/18/19 04/18/19 Nasal [place]] Previous Rx's Medication Instructions Recorded Cephalexin [Keflex] 500 mg PO Q6HR #28 cap 04/21/19 Allergies Allergy/AdvReac Type Severity Reaction Status Date / Time No Known Allergies Allergy Verified 04/18/19 08:47 Review of Systems ROS Statement: Those systems with pertinent positive or pertinent negative responses have been documented in the HPI. ROS Other: All systems not noted in ROS Statement are negative. 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 Falcon radiation seeds 2009, spot of skin cancer removed from head 10/2015 Past Anesthesia/Blood Transfusion Reactions: No Reported Reaction Past Psychological History: Anxiety, Depression Smoking Status: Never smoker - Past Family History Father Family Medical History: GI Bleed Mother Family Medical History: Cancer Additional Family Medical History / Comment(s): stomach cancer General Exam - General Exam Comments Initial Comments: Physical Exam GENERAL: Patient is well-developed and well-nourished. Patient is nontoxic and well-hydrated and is in no distress. HENT: Normocephalic, Atraumatic. EYES: PERRL, EOMI PULMONARY: Unlabored respirations. CARDIOVASCULAR: RRR Warm and well perfused extremities ABDOMEN: Non-distended SKIN: No rashes or bruising : Deferred NEUROLOGIC: Alert and oriented Normal speech Normal gait MUSCULOSKELETAL: Moving all extremities with no apparent injury PSYCHIATRIC: No SI/HI Limitations: no limitations Course Vital Signs 04/20/19 04/21/19 22:12 02:55 Temperature 97.4 F L 97.8 F Pulse Rate 64 62 Respiratory 18 18 Rate Blood Pressure 131/66 136/60 O2 Sat by Pulse 96 97 Oximetry Medical Decision Making - Medical Decision Making The patient was seen and evaluated history was obtained from medical records, patient and caregiver bedside. 88-year-old gentleman with history of Parkinson's who underwent suprapubic cath 2 days prior present now some increased shaking patient has been complaining of aching in his left arm which she thought was due to previous IVs. Basic labs and urinalysis were obtained urinalysis concerning for urinary tract infection which she has a history of chronic urinary tract infection due to previous catheterization. Rocephin was given a culture was obtained patient will be discharged home with Keflex. Upon discharge patient's son states she is concerned about the patient complaining about left arm pain and would like an EKG done. EKG was done appears nonischemic her chronic changes. Son feels reassured patient's remains comfortable with plan for discharge home - Lab Data Result diagrams: 04/20/19 22:28 04/20/19 22:28 Lab Results 04/20/19 04/20/19 04/20/19 Range/Units 22:28 22:28 22:28 WBC 9.1 (3.8-10.6) k/uL RBC 3.14 L (4.30-5.90) m/uL Hgb 10.4 L (13.0-17.5) gm/dL Hct 30.3 L (39.0-53.0) % MCV 96.6 (80.0-100.0) fL MCH 33.2 (25.0-35.0) pg MCHC 34.4 (31.0-37.0) g/dL RDW 13.5 (11.5-15.5) % Plt Count 166 (150-450) k/uL Neutrophils % 71 % Lymphocytes % 20 % Monocytes % 6 % Eosinophils % 2 % Basophils % 1 % Neutrophils # 6.4 (1.3-7.7) k/uL Lymphocytes # 1.8 (1.0-4.8) k/uL Monocytes # 0.6 (0-1.0) k/uL Eosinophils # 0.2 (0-0.7) k/uL Basophils # 0.0 (0-0.2) k/uL Sodium 138 (137-145) mmol/L Potassium 4.5 (3.5-5.1) mmol/L Chloride 105 (98-107) mmol/L Carbon Dioxide 22 (22-30) mmol/L Anion Gap 11 mmol/L BUN 48 H (9-20) mg/dL Creatinine 1.68 H (0.66-1.25) mg/dL Est GFR (CKD-EPI)AfAm 41 (>60 ml/min/1.73 sqM) Est GFR (CKD-EPI)NonAf 36 (>60 ml/min/1.73 sqM) Glucose 98 (74-99) mg/dL Calcium 8.9 (8.4-10.2) mg/dL Total Bilirubin 0.3 (0.2-1.3) mg/dL AST 15 L (17-59) U/L ALT <6 (4-49) U/L Alkaline Phosphatase 78 (38-126) U/L Total Protein 6.7 (6.3-8.2) g/dL Albumin 3.8 (3.5-5.0) g/dL Urine Color Light Red Urine Appearance Cloudy (Clear) Urine pH 5.5 (5.0-8.0) Ur Specific Ker[place] 1.011 (1.001-1.035) Urine Protein 1+ H (Negative) Urine Glucose (UA) Negative (Negative) Urine Ketones Negative (Negative) Urine Blood Large H (Negative) Urine Nitrite Negative (Negative) Urine Bilirubin Negative (Negative) Urine Urobilinogen <2.0 (<2.0) mg/dL Ur Leukocyte Esterase Large H (Negative) Urine RBC >182 H (0-5) /hpf Urine WBC 91 H (0-5) /hpf Urine WBC Clumps Many H (None) /hpf Ur Squamous Epith Cells 1 (0-4) /hpf Urine Bacteria Rare H (None) /hpf Urine Mucus Rare H (None) /hpf - EKG Data -: EKG Interpreted by Me EKG shows normal: sinus rhythm EKG Comments: EKG was obtained due to complaint of left arm pain, EKG obtained at 12:50 AM, r ate is 67 rhythm is sinus there is leftward axis is normal intervals, TN 178, QRS 114, QTC is [address] elevations or depressions and no evidence of acute ischemia or infarction. Disposition Clinical Impression: UTI (urinary tract infection) Disposition: HOME SELF-CARE Condition: Stable Instructions (If sedation given, give patient instructions): Urinary Tract Infection in Men (ED) Prescriptions: Cephalexin [Keflex] 500 mg PO Q6HR #28 cap Is patient prescribed a controlled substance at d/c from ED?: No Referrals: Arsalan Lopez MD [Primary Care Provider] - 1-2 days
[2019-04-21 02:57] VITALS: BP 136/60; PULSE 62; TEMP 97.8
== END 2019-04-21 02:00 | disposition home or self-care (01) ==
LOC: EC 22:05
DX: N39.0 Urinary tract infection, site not specified (principal); M79.602 Pain in left arm; R53.1 Weakness; E78.5 Hyperlipidemia, unspecified; I10 Essential (primary) hypertension; G20 Parkinson's disease; F41.9 Anxiety disorder, unspecified; F32.9 Major depressive disorder, single episode, unspecified; Z85.46 Personal history of malignant neoplasm of prostate; Z96.0 Presence of urogenital implants; Z86.14 Personal history of Methicillin resistant Staphylococcus aureus infection; Z85.828 Personal history of other malignant neoplasm of skin; Z79.82 Long term (current) use of aspirin; Z79.1 Long term (current) use of non-steroidal anti-inflammatories (NSAID); Z79.890 Hormone replacement therapy; Z79.899 Other long term (current) drug therapy
CPT/HCPCS: 99285; 96365; 36415; 93005; 80053; 85025; 81001; 87086; 87077; 87186; J0696

== ENCOUNTER → 2019-04-24 | Day surgery (SDC) | payer MEDICARE, BC ==
[2019-04-24 16:37] VITALS: BP 133/60; PULSE 64; RESP 18
== END ==
LOC: CATHCVL 13:51
PROVIDERS: ATTEND Internal Medicine Geriatric Medicine
DX: N39.0 Urinary tract infection, site not specified (principal)
CPT/HCPCS: 36410; 76937; C1751

== ENCOUNTER → 2019-05-08 | Outpatient (CLI) | payer MEDICARE, BC ==
[2019-05-08 15:21] VITALS: BP 103/64; PULSE 59; RESP 16; TEMP 98.3
[2019-05-08 16:20] LABS: Appearance,Urine Cloudy (Clear); Bacteria,Urine Moderate /hpf; Bilirubin,Urine Negative (Negative); Blood,Urine Large (Negative); Color,Urine Yellow; Glucose,Urine (UA) Negative (Negative); Hyaline Casts,Urine 2 /lpf (0-2); Ketones,Urine Negative (Negative); Leukocyte Esterase,Urine Large (Negative); Mucus,Urine Rare /hpf; Nitrite,Urine Positive (Negative); Protein,Urine 1+ (Negative); RBC,Urine >182 /hpf (0-5); Specific Gravity,Urine 1.014 (1.001-1.035); Urobilinogen,Urine <2.0 mg/dL (<2.0); WBC,Urine 83 /hpf (0-5)
== END | disposition home or self-care (01) ==
LOC: PROCWHC3 14:07
PROVIDERS: ATTEND Internal Medicine
DX: N39.0 Urinary tract infection, site not specified (principal)
CPT/HCPCS: 81001; 87086